=== PATIENT | female | born 1965 | race Caucasian/White ===

== ENCOUNTER 2016-08-19 12:32 | Outpatient (CLI) ==
[2013-01-24 14:52] VITALS: TEMP 98.1
[2016-06-29 13:21] VITALS: BMI 28.2
--- NOTE | 2016-08-19 13:27 | DI ---
EXAM: Two views of the chest. History: Surgical clearance. Comparison: Chest radiograph 01/03/2016 Findings: Upper limits of normal heart size again noted. No focal consolidation. No appreciable pl eural fluid and no pneumothorax. Stable right lung nodule. No acute osseous abnormalities. Impression: No acute cardiopulmonary process. No change compared to the prior study.
== END 2016-08-19 12:33 | disposition home or self-care (01) ==
LOC: RAD 12:32
PROVIDERS: ATTEND Physician Assistant Medical
DX: Z01.818 Encounter for other preprocedural examination (principal)

== ENCOUNTER 2016-08-22 20:15 | Emergency (ER) ==
[2016-08-22 20:20] VITALS: BP 92/64; TEMP 98.5; BMI 27.3
[2016-08-22] MEDS ORDERED: SODIUM CHLORIDE 1,000 ML IV STA (20:25)
[2016-08-22 20:35] LABS: BASOPHILS # (AUTO) 0.1 K/uL (0-0.2); BASOPHILS % (AUTO) 0.5 % (0.0-3.0); EOSINOPHILS # (AUTO) 0.1 K/ul (0.0-0.7); EOSINOPHILS % (AUTO) 0.9 % (0.0-7.0); HEMATOCRIT 41.1 % (37.0-47.0); HEMOGLOBIN 14.4 g/dl (12.0-16.0); IMMATURE GRANULOCYTE % (AUTO) 0.7 % (0.0-5.0); LYMPHOCYTES # (AUTO) 3.6 K/uL (0.60-3.4); LYMPHOCYTES % (AUTO) 33.7 (10.0-50.0); MEAN CORPUSCULAR HEMOGLOBIN 28.2 pg (27.0-31.0); MEAN CORPUSCULAR VOLUME 80.6 fl (81.0-99.0); MONOCYTES # (AUTO) 0.7 K/uL (0.4-2.0); MONOCYTES % (AUTO) 6.7 (0-10); NEUTROPHILS # (AUTO) 6.1 K/ul (2.0-6.9); NEUTROPHILS % (AUTO) 57.5; PLATELET COUNT 159 10^3/uL (140-440); WHITE BLOOD COUNT 10.53 K/ul (4.6-10.2)
[2016-08-22 20:49] LABS: FLU INTERNAL QC INTERNAL QC VALID; RAPID FLU A NEGATIVE (NEGATIVE)
[2016-08-22 20:50] LABS: RAPID FLU B NEGATIVE (NEGATIVE)
[2016-08-22 20:56] LABS: BILIRUBIN,URINE 1+ (NEGATIVE); KETONES,URINE Negative (NEGATIVE); LEUKOCYTE ESTERASE ,URINE Negative (NEGATIVE); NITRITE,URINE Negative (NEGATIVE); PH,URINE 5.5 (5-9); PROTEIN,URINE Trace (NEGATIVE); URINE, BLOOD Negative (NEGATIVE)
[2016-08-22 20:58] LABS: ADD URINE MICROSCOPIC YES
[2016-08-22 20:59] LABS: BACTERIA,URINE 1+ (NOT PRESENT)
[2016-08-22 21:01] LABS: ALBUMIN 3.4 g/dL (3.4-5.0); ALBUMIN/GLOBULIN RATIO 1.03; ANION GAP 12.8; BILIRUBIN,TOTAL 0.53 mg/dL (0.00-1.20); BUN/CREATININE RATIO 10.86; CALCIUM 9.3 mg/dL (8.2-10.2); CREATININE 0.92 mg/dL (0.60-1.30); POTASSIUM 3.8 mmol/L (3.5-5.10); TOTAL PROTEIN 6.7 g/dL (6.4-8.2)
--- NOTE | 2016-08-22 21:30 | CT ---
EXAM: CT abdomen pelvis without contrast HISTORY: Vomiting and fever COMPARISON: CT abdomen pelvis 01/16/2016 and 04/25/2015 TECHNIQUE: Serial axial images of the abdomen pelvis were performed from the lung bases through the inferior pelvis without contrast. These were viewed in multiple planes. FINDINGS: The lung bases are clear. Small pericardial effusion is present. Evaluation is limited due to lack of contrast. The liver is unremarkable. The gallbladder has been removed. The adrenal glands are unremarkable. The kidneys are normal. The spleen is unremarkable . The pancreas demonstrates a 1.2 x 2.0 cm nodule near the tail the pancreas seen on image 51. The stomach is normal. The small bowel in the abdomen pelvis is unremarkable. The colon is unremarkable. There is mild wa ll thickening of the ascending colon and the transverse colon. There is no free air or free fluid. Urinary bladder is distended. Soft tissues in the pelvis are normal. There are metallic clips in t he pelvis. Osseous structures are unremarkable. IMPRESSION: 1. Minimal thickening of the wall of the ascending and transverse colon suggestive of mild colitis. No focal fluid collection is identified. 2. Nodular density in the pancreas not visualized on prior exam. MRI pancreatic protocol is recomm ended to further evaluate. 3. Small pericardial effusion.
[2016-08-22] MEDS ORDERED: PHENERGAN 25 MG/ML VIAL 25 MG in SODIUM CHLORIDE 50 ML IV STA (21:39)
[2016-08-22] MEDS ORDERED: PHENERGAN 25 MG/ML VIAL ONE (21:42)
--- NOTE | 2016-08-22 21:42 | ED.PDOC ---
General ED Provider: Dr. THERESE REYNOLDS-ER Chief Complaint: Diarrhea Stated Complaint: yasmine had vomiting and diarrhea Time Seen by Physician: 20:20 Mode of Arrival: Walk-In Information Source: Patient, Family Exam Limitations: No limitations Primary Care Provider: EZEKIEL MCKEON Nursing and Triage Documentation Reviewed and Agree: Yes GI Complaint Exam - Vomiting/Diarrhea Complaint/Exam Onset/Duration: 24hrs Symptoms Are: Still present Episodes of Vomiting over last 24 Hours: 2 Episodes of Diarrhea Over Last 24 Hours: 2 Initial Severity: Mild Current Severity: Mild Character of Vomiting: Reports: Bilious Character of Diarrhea: Reports: Watery Aggravating: Reports: None Alleviating: Reports: None Associated Signs and Symptoms: Denies: Dizziness, Light-headedness, Melena, Hematemesis, Fever, Abdominal pain, Cramping Recent Positive Test: No Use of Oral Contraceptives: No Use of Depoprovera: No Compliant With Contraceptive Use: No Non-GI Risk Factors: Reports: None Surgical Obstruction Risk Factors: Reports: None Abdominal Findings: Present: None Rectal Exam: Present: Normal Findings Kussmaul Respirations Present: No Differential Diagnoses: Dehydration, Viral Gastroenteritis Review of Systems - Review Of Systems Constitutional: Reports: No symptoms Eyes: Reports: No symptoms Ears, Nose, Mouth, Throat: Reports: No symptoms Respiratory: Reports: No symptoms Cardiac: Reports: No symptoms GI: Reports: Diarrhea, Nausea, Vomiting : Reports: No symptoms Musculoskeletal: Reports: No symptoms Skin: Reports: No symptoms Neurological: Reports: No symptoms Endocrine: Reports: No symptoms Hematologic/Lymphatic: Reports: No symptoms All Other Systems: Reviewed and Negative Past Medical History - Past Medical History Previously Healthy: No Endocrine: Reports: DM 2, Dyslipidemia Cardiovascular: Reports: [place], Hypertension, CHF, A-Fib Respiratory: Reports: COPD, Asthma Hematological: Reports: Unknown Gastrointestinal: Reports: GERD, Diverticulitis, Other Genitourinary: Reports: Kidney stones, Other Neuro/Psych: Reports: Migraine, Seizure, Anxiety, Depression, Bipolar Disorder, Schizophrenia Musculoskeletal: Reports: Arthritis, Back Pain Cancer: Reports: Breast Last Menstrual Period: na Other Pertinent Past Medical History: IBS, PARANOID SCHIZOPHRENIA,ENDOMETRIOSIS - Surgical History General Surgical History: Reports: Cholecystectomy, Tonsillectomy, Orthopedic ( BILATERAL KNEE SURGERY), Other (COLON SURGERY, TUBES IN EARS) - Family History Family History: Reports: Unknown - Social History Smoking Status: Current every day smoker, Heavy tobacco smoker Hx Substance Use: No Alcohol Screening: None Lives: With family - Immunizations Tetanus Shot up to Date: No Physical Exam - Physical Exam Appearance: Well-appearing, No pain distress, Well-nourished Eyes: HANH, EOMI, Conjunctiva clear ENT: Ears normal, Nose normal, Oropharynx normal Neck: Supple Respiratory: Airway patent, Breath sounds clear, Breath sounds equal, Respirations nonlabored Cardiovascular: RRR GI/: Soft, Nontender, No masses, Bowel sounds normal, No Organomegaly Musculoskeletal: Normal strength, ROM intact, No edema, No calf tenderness Skin: Warm, Dry, Normal color Neurological: Sensation intact, Motor intact, Reflexes intact, Cranial nerves intact, Alert, Oriented Psychiatric: Affect appropriate, Mood appropriate Interpretation - Radiology Interpretation Radiology Interpretation By: Radiologist Radiology Results: Positive Exam Interpreted: CT Scan ("pancreatic mass") Re-Evaluation - Re-Evaluation Time of Re-Evaluation: 21:42 Status: Improved Vital Signs Stable: Yes Pain Level: 1 Appearance: NAD Lungs: Clear Skin: Warm and Dry Neuro: Alert and Oriented X3 CV: RRR Critical Care Note - Critical Care Note Total Time (mins): 0 Course - Course Hematology/Chemistry: 08/22/16 20:30 08/22/16 20:30 Orders, Labs, Meds: Lab Review 08/22/16 08/22/16 08/22/16 20:25 20:30 20:50 WBC 10.53 H RBC 5.10 Hgb 14.4 Hct 41.1 MCV 80.6 L MCH 28.2 MCHC 35.0 RDW Coeff of Yanet 12.1 Plt Count 159 Immature Gran % (Auto) 0.7 Neut % (Auto) 57.5 Lymph % (Auto) 33.7 [place] % (Auto) 6.7 Eos % (Auto) 0.9 Baso % (Auto) 0.5 Immature Gran # (Auto) 0.1 Neut # 6.1 Lymph # 3.6 H [place] # 0.7 Eos # 0.1 Baso # 0.1 Sodium 136 Potassium 3.8 Chloride 104 Carbon Dioxide 23 Anion Gap 12.8 BUN 10 Creatinine 0.92 Estimated GFR (MDRD) 64.00 BUN/Creatinine Ratio 10.86 Glucose 259 H Calcium 9.3 Total Bilirubin 0.53 AST 8 L ALT 9 L Alkaline Phosphatase 142 H Total Protein 6.7 Albumin 3.4 Globulin 3.3 Albumin/Globulin Ratio 1.03 Amylase 18 L Lipase 11 Urine Color Yellow Urine Clarity Clear Urine pH 5.5 Ur Specific [place] >=1.030 Urine Protein Trace Urine Glucose (UA) 2+ Urine Ketones Negative Urine Blood Negative Urine Nitrite Negative Urine Bilirubin 1+ Urine Urobilinogen 0.2 Ur Leukocyte Esterase Negative Urine Microscopic RBC 0-2 Urine Microscopic WBC 2-5 Ur Squamous Epith Cells 10-20 Urine Bacteria 1+ Influenza A (Rapid) Negative Influenza B (Rapid) Negative Orders Category Date Time Status IV [ED IV/MEDIPORT/POWERPORT] .ONCE EMERGENCY 08/22/16 20:25 Active AMYLASE Stat LAB 08/22/16 20:30 Completed CBC W/ AUTO DIFF Stat LAB 08/22/16 20:30 Completed COMPREHENSIVE METABOLIC PANEL Stat LAB 08/22/16 20:30 Completed LIPASE Stat LAB 08/22/16 20:30 Completed MOLECULAR GROUP A STREP Stat LAB 08/22/16 20:25 Results RAPID FLU A/B Stat LAB 08/22/16 20:25 Completed STREP SCREEN Stat LAB 08/22/16 20:25 Results URINALYSIS C & S IF INDICATED Stat LAB 08/22/16 20:50 Completed URINE CULTURE Stat LAB 08/22/16 20:59 Received 0.9 % Sodium Chloride [Saline Flush] MEDS 08/22/16 20:25 Ordered 1 syr IVF PRN PRN Promethazine HCl [Phenergan 25 mg/ml Vial] 25 mg MEDS 08/22/16 21:39 Active 0.9 % Sodium Chloride [Sodium Chloride] 50 ml IV ONCE Sodium Chloride 0.9% [Sodium Chloride] 1,000 ml MEDS 08/22/16 20:[address] ABDOMEN/PELVIS WO CONTRAST Stat RADS 08/22/16 20:51 Completed Medications Generic Name Dose Route Start Last Admin Trade Name Freq PRN Reason Stop Dose Admin Promethazine HCl 25 mg/ Sodium 51 mls @ 75 mls/hr 08/22/16 21:39 Chloride IV 08/22/16 22:19 ONCE STA Sodium Chloride 1 syr 08/22/16 20:25 08/22/16 20:51 Saline Flush IVF 1 syr PRN PRN Administration To flush IV Discontinued Medications Generic Name Dose Route Start Last Admin Trade Name Freq PRN Reason Stop Dose Admin Sodium Chloride 1,000 mls @ 1,000 mls/hr 08/22/16 20:25 08/22/16 20:51 Sodium Chloride IV 08/22/16 21:24 1,000 mls/hr BOLUS STA Administration Vital Signs: Temp Pulse Resp BP Pulse Ox 08/22/16 20:16 98.5 F 111 H 20 92/64 94 L Departure - Departure Time of Disposition: 21:42 Disposition: HOME SELF-CARE Discharge Problem: Enteritis, Pancreatic mass UTI (urinary tract infection) Qualifiers: Urinary tract infection type: site unspecified Hematuria presence: without hematuria Qualifier Code: (N39.0) Urinary tract infection, site not specified Instructions: Urinary Tract Infection in Women (ED) Condition: Fair Pt referred to PMD for follow-up: Yes Additional Instructions: minocin 50mg bid x 7days--phenergan 25mg q 4hrs prn #4--y0ou must f/u with your pcp this week about the pancreatic mass--you will need an mri Allergies/Adverse Reactions: Allergies carbamazepine [From Tegretol] Adverse Reaction (Verified 06/29/16 13:21) chlorpromazine HCl [From Thorazine] Adverse Reaction (Verified 06/29/16 13:21) cyclobenzaprine [From Flexeril] Adverse Reaction (Verified 06/29/16 13:21) dexamethasone [From Decadron] Adverse Reaction (Verified 06/29/16 13:21) dexamethasone sod phosphate [From Decadron] Adverse Reaction (Verified 06/29/16 13:21) dextromethorphan HBr [From Vicks Nature Fusion Cough] Adverse Reaction ( Verified 06/29/16 13:21) hydroxyzine HCl [From Vistaril] Adverse Reaction (Verified 06/29/16 13:21) hydroxyzine pamoate [From Vistaril] Adverse Reaction (Verified 06/29/16 13:21) insulin detemir [From Levemir] Adverse Reaction (Verified 06/29/16 13:21) insulin glargine,hum.rec.anlog [From Lantus] Adverse Reaction (Verified 13:21) Iodinated Contrast Media - Oral and Adverse Reaction (Verified 06/29/16 13:21) lorazepam [From Ativan] Adverse Reaction (Verified 06/29/16 13:21) meperidine [From Demerol] Adverse Reaction (Verified 06/29/16 13:21) metformin Adverse Reaction (Verified 06/29/16 13:21) methylprednisolone [From Medrol] Adverse Reaction (Verified 06/29/16 13:21) nitrofurantoin [From Macrobid] Adverse Reaction (Verified 06/29/16 13:21) nitrofurantoin macrocrystal [From Macrobid] Adverse Reaction (Verified 06/29/16 13:21) ondansetron [From Zofran (as hydrochloride)] Adverse Reaction (Verified 13:21) ondansetron HCl [From Zofran] Adverse Reaction (Verified 06/29/16 13:21) Penicillins Adverse Reaction (Verified 06/29/16 13:21) phenytoin sodium [From Dilantin] Adverse Reaction (Verified 06/29/16 13:21) phenytoin sodium extended [From Dilantin] Adverse Reaction (Verified 06/29/16 13 :21) prednisone Adverse Reaction (Verified 06/29/16 13:21) Sulfa (Sulfonamide Antibiotics) Adverse Reaction (Verified 06/29/16 13:21) tramadol HCl [From Ultram] Adverse Reaction (Verified 06/29/16 13:21) trimethoprim [From Bactrim] Adverse Reaction (Verified 06/29/16 13:21) paper tape Adverse Reaction (Uncoded 04/19/16 18:55) Home Medications: Ambulatory Orders Tiotropium [place] [Spiriva] 1 cap IH DAILY 01/24/13 Topiramate [Topamax] 50 mg PO BID 01/24/13 Valsartan [Diovan] 160 mg PO DAILY 01/24/13 Aspirin [Aspirin EC] 81 mg PO DAILY 11/03/13 Pantoprazole Sodium [Protonix] 40 mg PO BID 06/10/14 Insulin Lispro [Humalog] 22 unit SUBCUT BEDTIME 07/22/14 Lovastatin [Mevacor] 40 mg PO BEDTIME 05/16/15 Albuterol Sulfate 0.083% Neb [Albuterol 0.083% Neb] 1 vial INH BID 12/14/15 Furosemide [Lasix Tab] 80 mg PO MOWEFR 01/03/16 Multivitamin [One Daily Multivitamin] 1 each PO DAILY 01/03/16 Trazodone HCl 100 mg PO BEDTIME #30 02/05/16 Fluticasone Propionate [Flonase] 1 spray NS BID 04/15/16 Hydrocodone/Acetaminophen [[place] 7.5-325 Tablet] 1 each PO Q6HR PRN #7 tablet Hydroxyzine HCl 25 mg PO TID #90 07/22/16 Quetiapine Fumarate [Seroquel] 300 mg PO BEDTIME #30 07/22/16 Insulin Lispro [Humalog] 15 unit SUBCUT DAILY 08/22/16 Quetiapine Fumarate [Seroquel] 100 mg PO BEDTIME 08/22/16 Disposition Discussed With: Patient, Family
== END 2016-08-22 22:53 | disposition home or self-care (01) ==
LOC: ED 20:15
DX: K52.9 Noninfective gastroenteritis and colitis, unspecified (principal); N39.0 Urinary tract infection, site not specified; R19.09 Other intra-abdominal and pelvic swelling, mass and lump; I25.2 Old myocardial infarction; Z79.899 Other long term (current) drug therapy; F17.210 Nicotine dependence, cigarettes, uncomplicated
CPT/HCPCS: 36415; 80053; 81001; 82150; 83690; 85025; 87086; 87651; 87804; 87880; 96361; 96365; 99283

== ENCOUNTER 2016-08-30 14:54 | Emergency (ER) ==
[2016-08-30 15:00] VITALS: BP 110/69; TEMP 97.3; BMI 27.6
[2016-08-30 15:39] LABS: BASOPHILS # (AUTO) 0.1 K/uL (0-0.2); BASOPHILS % (AUTO) 0.7 % (0.0-3.0); EOSINOPHILS # (AUTO) 0.1 K/ul (0.0-0.7); EOSINOPHILS % (AUTO) 0.7 % (0.0-7.0); HEMATOCRIT 41.4 % (37.0-47.0); HEMOGLOBIN 14.8 g/dl (12.0-16.0); IMMATURE GRANULOCYTE % (AUTO) 1.4 % (0.0-5.0); LYMPHOCYTES # (AUTO) 3.2 K/uL (0.60-3.4); MEAN CORPUSCULAR HEMOGLOBIN 28.7 pg (27.0-31.0); MEAN CORPUSCULAR HGB CONC 35.7 (31.8-35.4); MEAN CORPUSCULAR VOLUME 80.4 fl (81.0-99.0); MONOCYTES # (AUTO) 0.6 K/uL (0.4-2.0); MONOCYTES % (AUTO) 7.2 (0-10); NEUTROPHILS # (AUTO) 4.8 K/ul (2.0-6.9); PLATELET COUNT 191 10^3/uL (140-440); RED BLOOD COUNT 5.15 10^6/ul (4.20-5.40); WHITE BLOOD COUNT 8.88 K/ul (4.6-10.2)
[2016-08-30 15:53] LABS: FLU INTERNAL QC INTERNAL QC VALID; RAPID FLU A NEGATIVE (NEGATIVE); RAPID FLU B NEGATIVE (NEGATIVE)
[2016-08-30 16:04] LABS: ALBUMIN 3.5 g/dL (3.4-5.0); ALBUMIN/GLOBULIN RATIO 0.97; BILIRUBIN,TOTAL 0.37 mg/dL (0.00-1.20); BUN/CREATININE RATIO 12.26; CALCIUM 9.6 mg/dL (8.2-10.2); CREATININE 1.06 mg/dL (0.60-1.30); TOTAL PROTEIN 7.1 g/dL (6.4-8.2)
--- NOTE | 2016-08-30 16:28 | CT ---
EXAM: CT abdomen and pelvis without contrast HISTORY: Abdominal pain TECHNIQUE: Multi-slice transaxial helical with coronal and sagittal reformed images COMPARISON: CT abdomen/pelvis from 08/22/2016 FINDINGS: A moderate pericardial effusion has increased with a maximal diameter of 1.5 cm adjacent t o the free wall of the ventricle. The heart size is normal. A trace left pleural effusion persists . No right pleural fluid is appreciated. Minimal dependent atelectasis is noted. The hepatic attenuation is normal relative to the spleen. The gallbladder is absent without biliary dilatation. The pancreas and adrenal glands are normal. The spleen has normal size and attenuatio n. There is a nonobstructing calculus at the interpolar region of the right kidney measuring 1.7 mm. An additional calculus is 2.2 mm. The kidneys are otherwise grossly normal within the confines of a no ncontrast examination. The ureters have normal caliber. The nonopacified bladder is normal. The u terus is absent and there are no adnexal masses. Diverticula arise from the large bowel. There is diffuse submucosal fat deposition in the large bow el suggesting chronic inflammation. The appendix is not visualized. There are no secondary signs a ppendicitis. A small bowel maintain normal caliber. The aorta is minimally atherosclerotic with no rmal caliber. No suspicious lymphadenopathy or fluid collections are evident. The bones are free of suspicious osteolytic or osteoblastic lesions. IMPRESSION: 1. Nonobstructive intestinal gas pattern. Suggestion of previous appendectomy. 2. Nonobstructing right nephrolithiasis. 3. Moderate pericardial effusion, increased in volume. 4. Trace left pleural effusion. 5. ASCVD. 6. Suggestion of chronic inflammation of the large bowel with submucosal fat deposition
--- NOTE | 2016-08-30 16:32 | ED.PDOC ---
General ED Provider: Dr. SAMIA SILVA Chief Complaint: Respiratory Complaint Stated Complaint: cough, flu like symptoms Time Seen by Physician: 15:00 Mode of Arrival: Walk-In Information Source: Patient Exam Limitations: No limitations Primary Care Provider: EZEKIEL MCKEON Nursing and Triage Documentation Reviewed and Agree: Yes Respiratory Complaint Exam - Respiratory Complaint/Exam Symptoms Are: Still present Timing: Intermittent Initial Severity: Moderate Current Severity: Mild Location: Throat, Chest Character: Reports: Non-productive cough Aggravating: Reports: None Alleviating: Reports: Spontaneous resolution Associated Signs and Symptoms: Reports: Nasal congestion Related History: Reports: Similar episode History of Healthcare-Acquired Pneumonia: No Review of Systems - Review Of Systems Constitutional: Reports: Malaise Eyes: Reports: No symptoms Ears, Nose, Mouth, Throat: Reports: No symptoms Respiratory: Reports: Cough Cardiac: Reports: No symptoms GI: Reports: No symptoms : Reports: No symptoms Musculoskeletal: Reports: No symptoms Skin: Reports: No symptoms Neurological: Reports: No symptoms Endocrine: Reports: No symptoms Hematologic/Lymphatic: Reports: No symptoms All Other Systems: Reviewed and Negative Past Medical History - Past Medical History Previously Healthy: No Endocrine: Reports: DM 2, Dyslipidemia Cardiovascular: Reports: [place], Hypertension, CHF, A-Fib Respiratory: Reports: COPD, Asthma Hematological: Reports: Unknown Gastrointestinal: Reports: GERD, Diverticulitis, Other Genitourinary: Reports: Kidney stones, Other Neuro/Psych: Reports: Migraine, Seizure, Anxiety, Depression, Bipolar Disorder, Schizophrenia Musculoskeletal: Reports: Arthritis, Back Pain Cancer: Reports: Breast Last Menstrual Period: n/a Other Pertinent Past Medical History: IBS, PARANOID SCHIZOPHRENIA,ENDOMETRIOSIS - Surgical History General Surgical History: Reports: Cholecystectomy, Tonsillectomy, Orthopedic ( BILATERAL KNEE SURGERY), Other (COLON SURGERY, TUBES IN EARS) - Family History Family History: Reports: Unknown - Social History Smoking Status: Current every day smoker, Heavy tobacco smoker Hx Substance Use: No Alcohol Screening: None Physical Exam - Physical Exam Appearance: Well-appearing, No pain distress, Well-nourished Eyes: HANH, EOMI, Conjunctiva clear ENT: Ears normal, Nose normal, Oropharynx normal Respiratory: Airway patent, Breath sounds clear, Breath sounds equal, Respirations nonlabored Cardiovascular: RRR, Pulses normal, No rub, No murmur GI/: Soft, Nontender, No masses, Bowel sounds normal, No Organomegaly Musculoskeletal: Normal strength, ROM intact, No edema, No calf tenderness Skin: Warm, Dry, Normal color Neurological: Sensation intact, Motor intact, Reflexes intact, Cranial nerves intact, Alert, Oriented Psychiatric: Affect appropriate, Mood appropriate Interpretation - Radiology Interpretation Radiology Interpretation By: Radiologist Radiology Results: No acute changes Critical Care Note - Critical Care Note Total Time (mins): 0 Course - Course Hematology/Chemistry: 08/30/16 15:30 08/30/16 15:30 Orders, Labs, Meds: Lab Review 08/30/16 15:30 WBC 8.88 RBC 5.15 Hgb 14.8 Hct 41.4 MCV 80.4 L MCH 28.7 MCHC 35.7 H RDW Coeff of [place] 12.1 Plt Count 191 Immature Gran % (Auto) 1.4 Neut % (Auto) 54.0 Lymph % (Auto) 36.0 [place] % (Auto) 7.2 Eos % (Auto) 0.7 Baso % (Auto) 0.7 Immature Gran # (Auto) 0.1 Neut # 4.8 Lymph # 3.2 [place] # 0.6 Eos # 0.1 Baso # 0.1 Sodium 134 L Potassium 4.0 Chloride 98 Carbon Dioxide 24 Anion Gap 16.0 BUN 13 Creatinine 1.06 Estimated GFR (MDRD) 55.00 BUN/Creatinine Ratio 12.26 Glucose 435 H Calcium 9.6 Total Bilirubin 0.37 AST 8 L ALT 9 L Alkaline Phosphatase 149 H Total Protein 7.1 Albumin 3.5 Globulin 3.6 Albumin/Globulin Ratio 0.97 Influenza A (Rapid) Negative Influenza B (Rapid) Negative Orders Category Date Time Status CBC W/ AUTO DIFF Stat LAB 08/30/16 15:30 Completed COMPREHENSIVE METABOLIC PANEL Stat LAB 08/30/16 15:30 Completed MOLECULAR GROUP A STREP Stat LAB 08/30/16 15:30 Results RAPID FLU A/B Stat LAB 08/30/16 15:30 Completed STREP SCREEN Stat LAB 08/30/16 15:[address] ABDOMEN/PELVIS WO CONTRAST Stat RADS 08/30/16 15:28 Completed Vital Signs: Temp Pulse Resp BP Pulse Ox 08/30/16 14:55 97.3 F L 118 H 16 110/69 97 Departure - Departure Time of Disposition: 16:30 Disposition: HOME SELF-CARE Discharge Problem: Bronchitis Instructions: Acute Bronchitis (ED) Condition: Good Pt referred to PMD for follow-up: No Allergies/Adverse Reactions: Allergies carbamazepine [From Tegretol] Adverse Reaction (Verified 08/30/16 15:00) chlorpromazine HCl [From Thorazine] Adverse Reaction (Verified 08/30/16 15:00) cyclobenzaprine [From Flexeril] Adverse Reaction (Verified 08/30/16 15:00) dexamethasone [From Decadron] Adverse Reaction (Verified 08/30/16 15:00) dexamethasone sod phosphate [From Decadron] Adverse Reaction (Verified 08/30/16 15:00) dextromethorphan HBr [From Vicks Nature Fusion Cough] Adverse Reaction ( Verified 08/30/16 15:00) hydroxyzine HCl [From Vistaril] Adverse Reaction (Verified 08/30/16 15:00) hydroxyzine pamoate [From Vistaril] Adverse Reaction (Verified 08/30/16 15:00) insulin detemir [From Levemir] Adverse Reaction (Verified 08/30/16 15:00) insulin glargine,hum.rec.anlog [From Lantus] Adverse Reaction (Verified 15:00) Iodinated Contrast Media - Oral and Adverse Reaction (Verified 08/30/16 15:00) lorazepam [From Ativan] Adverse Reaction (Verified 08/30/16 15:00) meperidine [From Demerol] Adverse Reaction (Verified 08/30/16 15:00) metformin Adverse Reaction (Verified 08/30/16 15:00) methylprednisolone [From Medrol] Adverse Reaction (Verified 08/30/16 15:00) nitrofurantoin [From Macrobid] Adverse Reaction (Verified 08/30/16 15:00) nitrofurantoin macrocrystal [From Macrobid] Adverse Reaction (Verified 08/30/16 15:00) ondansetron [From Zofran (as hydrochloride)] Adverse Reaction (Verified 15:00) ondansetron HCl [From Zofran] Adverse Reaction (Verified 08/30/16 15:00) Penicillins Adverse Reaction (Verified 08/30/16 15:00) phenytoin sodium [From Dilantin] Adverse Reaction (Verified 08/30/16 15:00) phenytoin sodium extended [From Dilantin] Adverse Reaction (Verified 08/30/16 15 :00) prednisone Adverse Reaction (Verified 08/30/16 15:00) Sulfa (Sulfonamide Antibiotics) Adverse Reaction (Verified 08/30/16 15:00) tramadol HCl [From Ultram] Adverse Reaction (Verified 08/30/16 15:00) trimethoprim [From Bactrim] Adverse Reaction (Verified 08/30/16 15:00) paper tape Adverse Reaction (Uncoded 08/30/16 15:00) Home Medications: Ambulatory Orders Tiotropium [place] [Spiriva] 1 cap IH DAILY 01/24/13 Topiramate [Topamax] 50 mg PO BID 01/24/13 Valsartan [Diovan] 160 mg PO DAILY 01/24/13 Aspirin [Aspirin EC] 81 mg PO DAILY 11/03/13 Pantoprazole Sodium [Protonix] 40 mg PO BID 06/10/14 Insulin Lispro [Humalog] 22 unit SUBCUT BEDTIME 07/22/14 Lovastatin [Mevacor] 40 mg PO BEDTIME 05/16/15 Albuterol Sulfate 0.083% Neb [Albuterol 0.083% Neb] 1 vial INH BID 12/14/15 Furosemide [Lasix Tab] 80 mg PO MOWEFR 01/03/16 Multivitamin [One Daily Multivitamin] 1 each PO DAILY 01/03/16 Trazodone HCl 100 mg PO BEDTIME #30 02/05/16 Fluticasone Propionate [Flonase] 1 spray NS BID 04/15/16 Hydrocodone/Acetaminophen [[place] 7.5-325 Tablet] 1 each PO Q6HR PRN #7 tablet Hydroxyzine HCl 25 mg PO TID #90 07/22/16 Quetiapine Fumarate [Seroquel] 300 mg PO BEDTIME #30 07/22/16 Insulin Lispro [Humalog] 15 unit SUBCUT DAILY 08/22/16 Quetiapine Fumarate [Seroquel] 100 mg PO BEDTIME 08/22/16
[2016-08-30] MEDS ORDERED: HUMULIN R SUBCUT STA (16:37)
== END 2016-08-30 17:03 | disposition home or self-care (01) ==
LOC: ED 14:54
DX: J20.9 Acute bronchitis, unspecified (principal); F17.210 Nicotine dependence, cigarettes, uncomplicated; Z79.899 Other long term (current) drug therapy
CPT/HCPCS: 36415; 80053; 85025; 87651; 87804; 87880; 96372; 99283

== ENCOUNTER 2016-09-05 12:37 | Outpatient (CLI) ==
[2013-01-24 14:52] VITALS: TEMP 98.1
== END 2016-09-05 12:38 | disposition home or self-care (01) ==
LOC: AMBL 12:37
PROVIDERS: ATTEND Family Medicine
DX: R19.7 Diarrhea, unspecified (principal); R11.2 Nausea with vomiting, unspecified; K86.89 Other specified diseases of pancreas

== ENCOUNTER 2016-09-24 12:56 | Outpatient (CLI) ==
[2013-01-24 14:52] VITALS: TEMP 98.1
[2016-09-24 13:33] LABS: BASOPHILS # (AUTO) 0.1 K/uL (0-0.2); BASOPHILS % (AUTO) 0.6 % (0.0-3.0); EOSINOPHILS # (AUTO) 0.1 K/ul (0.0-0.7); EOSINOPHILS % (AUTO) 0.8 % (0.0-7.0); HEMATOCRIT 40.4 % (37.0-47.0); HEMOGLOBIN 14.4 g/dl (12.0-16.0); IMMATURE GRANULOCYTE % (AUTO) 0.9 % (0.0-5.0); LYMPHOCYTES # (AUTO) 3.6 K/uL (0.60-3.4); LYMPHOCYTES % (AUTO) 45.2 (10.0-50.0); MEAN CORPUSCULAR HEMOGLOBIN 28.9 pg (27.0-31.0); MEAN CORPUSCULAR HGB CONC 35.6 (31.8-35.4); MONOCYTES # (AUTO) 0.5 K/uL (0.4-2.0); MONOCYTES % (AUTO) 6.4 (0-10); NEUTROPHILS # (AUTO) 3.7 K/ul (2.0-6.9); NEUTROPHILS % (AUTO) 46.1; PLATELET COUNT 185 10^3/uL (140-440); RED BLOOD COUNT 4.99 10^6/ul (4.20-5.40); WHITE BLOOD COUNT 7.95 K/ul (4.6-10.2)
[2016-09-24 14:05] LABS: ALBUMIN 3.8 g/dL (3.4-5.0); ANION GAP 16.3; BILIRUBIN,TOTAL 0.33 mg/dL (0.00-1.20); BUN/CREATININE RATIO 11.22; CALCIUM 9.6 mg/dL (8.2-10.2); CREATININE 0.98 mg/dL (0.60-1.30); POTASSIUM 4.3 mmol/L (3.5-5.10); TOTAL PROTEIN 7.6 g/dL (6.4-8.2)
== END 2016-09-24 12:57 | disposition home or self-care (01) ==
LOC: LAB 12:56
PROVIDERS: ATTEND Internal Medicine Gastroenterology
DX: K86.9 Disease of pancreas, unspecified (principal)
CPT/HCPCS: 36415; 80053; 85025; 86301

== ENCOUNTER 2016-09-26 11:56 | Outpatient (CLI) ==
[2013-01-24 14:52] VITALS: TEMP 98.1
== END 2016-09-26 11:57 ==
LOC: AMBL 11:56
PROVIDERS: ATTEND Internal Medicine
DX: R10.9 Unspecified abdominal pain (principal); K59.00 Constipation, unspecified

== ENCOUNTER 2016-11-19 18:52 | Emergency (ER) ==
[2016-11-19 18:58] VITALS: TEMP 99.1; BMI 27.1
[2016-11-19] MEDS ORDERED: DILAUDID 2 MG/ML SYRINGE IM STA (19:15)
[2016-11-19] MEDS ORDERED: ZOFRAN 4 MG/2 ML IM STA (19:15)
[2016-11-19] MEDS ORDERED: PHENERGAN 25 MG/ML VIAL IM STA (19:16)
[2016-11-19 19:29] VITALS: BP 131/84
--- NOTE | 2016-11-19 19:47 | ED.PDOC ---
General ED Provider: Dr. THERESE REYNOLDS-ER Chief Complaint: Shoulder Pain/Injury Stated Complaint: i have a rotator cuff tear--im supposed to have surgery--it hurts to move the arm at the shoulder Time Seen by Physician: 18:55 Mode of Arrival: Walk-In Information Source: Patient Exam Limitations: No limitations Primary Care Provider: FLAKITA MCALLISTER Nursing and Triage Documentation Reviewed and Agree: Yes Musculoskeletal Complaint Exam - Shoulder Pain Complaint/Exam Mechanism of Injury: Reports: No known trauma Onset/Duration: several mos Symptoms Are: Still present Timing: Intermittent Initial Severity: Moderate Current Severity: Moderate Location: Reports: Discrete Character: Reports: Spasmodic Alleviating: Reports: None Aggravating: Reports: Movement, Lifting, Flexion, Extension, Internal rotation Associated Signs and Symptoms: Denies: Swelling, Redness, Bruising, Fever, Weakness, Numbness, Tingling Non-Orthopedic Risk Factors: Reports: None Septic Arthritis Risk Factors: Reports: None Tenderness: Present: Rotator cuff muscles Limited Range of Motion: Present: Abduction, Adduction, Flexion, Extension Differential Diagnoses: Rotator Cuff Injury Quality Indicator For Non-Traumatic Chest Pain/Syncope: EKG Performed Review of Systems - Review Of Systems Constitutional: Reports: No symptoms Eyes: Reports: No symptoms Ears, Nose, Mouth, Throat: Reports: No symptoms Respiratory: Reports: No symptoms Cardiac: Reports: No symptoms GI: Reports: No symptoms : Reports: No symptoms Musculoskeletal: Reports: Muscle pain Skin: Reports: No symptoms Neurological: Reports: No symptoms Endocrine: Reports: No symptoms Hematologic/Lymphatic: Reports: No symptoms All Other Systems: Reviewed and Negative Past Medical History - Past Medical History Previously Healthy: No Endocrine: Reports: DM 2, Dyslipidemia Cardiovascular: Reports: OR, Hypertension, CHF, A-Fib Respiratory: Reports: COPD, Asthma Hematological: Reports: Unknown Gastrointestinal: Reports: GERD, Diverticulitis, Other Genitourinary: Reports: Kidney stones, Other Neuro/Psych: Reports: Migraine, Seizure, Anxiety, Depression, Bipolar Disorder, Schizophrenia Musculoskeletal: Reports: Arthritis, Back Pain Cancer: Reports: Breast Last Menstrual Period: N/A Other Pertinent Past Medical History: IBS, PARANOID SCHIZOPHRENIA,ENDOMETRIOSIS - Surgical History General Surgical History: Reports: Cholecystectomy, Tonsillectomy, Orthopedic ( BILATERAL KNEE SURGERY), Other (COLON SURGERY, TUBES IN EARS) - Family History Family History: Reports: Unknown - Social History Smoking Status: Current every day smoker, Heavy tobacco smoker Hx Substance Use: No Alcohol Screening: None Lives: With family - Immunizations Tetanus Shot up to Date: Yes Physical Exam - Physical Exam Appearance: Well-appearing, No pain distress, Well-nourished Pain Distress: Moderate Eyes: HANH ENT: Ears normal, Nose normal, Oropharynx normal Neck: Supple Respiratory: Airway patent Cardiovascular: RRR, Pulses normal, No rub, No murmur GI/: Soft, Nontender, No masses, Bowel sounds normal, No Organomegaly Musculoskeletal: Limited ROM Skin: Warm Neurological: Sensation intact, Motor intact, Reflexes intact, Cranial nerves intact, Alert, Oriented Psychiatric: Affect appropriate, Mood appropriate Re-Evaluation - Re-Evaluation Time of Re-Evaluation: 20:01 Status: Improved Vital Signs Stable: Yes Pain Level: o Appearance: NAD Lungs: Clear Skin: Warm and Dry Neuro: Alert and Oriented X3 CV: RRR Critical Care Note - Critical Care Note Total Time (mins): 0 Course - Course Orders, Labs, Meds: Lab Review 11/19/16 19:20 Total Creatine Kinase 22 Troponin I < 0.0100 Orders Category Date Time Status EKG-(ED ONLY) Stat CARDIO 11/19/16 19:13 Ordered Inverform Machine Operator [ED FRAME TRIMMER APPLIED] .ONCE EMERGENCY 11/19/16 19:14 Active CREATINE KINASE Stat LAB 11/19/16 19:20 Completed TROPONIN I Stat LAB 11/19/16 19:20 Completed Hydromorphone HCl/Pf [Dilaudid 2 mg/ml Syringe] MEDS 11/19/16 19:15 Discontinued 2 mg IM ONCE STA Promethazine HCl [Phenergan 25 mg/ml Vial] MEDS 11/19/16 19:16 Discontinued 25 mg IM ONCE STA Medications Discontinued Medications Generic Name Dose Route Start Last Admin Trade Name Freq PRN Reason Stop Dose Admin Hydromorphone HCl 2 mg 11/19/16 19:15 11/19/16 19:30 Dilaudid 2 Mg/Ml Syringe IM 11/19/16 19:16 2 mg ONCE STA Administration Promethazine HCl 25 mg 11/19/16 19:16 11/19/16 19:32 Phenergan 25 Mg/Ml Vial IM 11/19/16 19:17 25 mg ONCE STA Administration Vital Signs: Temp Pulse Resp BP Pulse Ox 11/19/16 19:16 103 H 16 131/84 95 04/14/17 18:52 99.1 F 113 H 18 96/58 L 96 Departure - Departure Time of Disposition: 20:01 Disposition: HOME SELF-CARE Discharge Problem: Rotator cuff dysfunction Qualifiers: Laterality: left Qualifier Code: (M67.912) Unspecified disorder of synovium and tendon, left shoulder Instructions: Rotator Cuff Injury (ED) Condition: Good Pt referred to PMD for follow-up: Yes Additional Instructions: f/u with ortho Allergies/Adverse Reactions: Allergies carbamazepine [From Tegretol] Adverse Reaction (Verified 11/19/16 19:15) chlorpromazine HCl [From Thorazine] Adverse Reaction (Verified 11/19/16 19:15) cyclobenzaprine [From Flexeril] Adverse Reaction (Verified 11/19/16 19:15) dexamethasone [From Decadron] Adverse Reaction (Verified 11/19/16 19:15) dexamethasone sod phosphate [From Decadron] Adverse Reaction (Verified 11/19/16 19:15) dextromethorphan HBr [From Vicks Nature Fusion Cough] Adverse Reaction ( Verified 11/19/16 19:15) hydroxyzine HCl [From Vistaril] Adverse Reaction (Verified 11/19/16 19:15) hydroxyzine pamoate [From Vistaril] Adverse Reaction (Verified 11/19/16 19:15) insulin detemir [From Levemir] Adverse Reaction (Verified 11/19/16 19:15) insulin glargine,hum.rec.anlog [From Lantus] Adverse Reaction (Verified 19:15) Iodinated Contrast Media - Oral and Adverse Reaction (Verified 11/19/16 19:00) lorazepam [From Ativan] Adverse Reaction (Verified 11/19/16 19:00) meperidine [From Demerol] Adverse Reaction (Verified 11/19/16 19:00) metformin Adverse Reaction (Verified 11/19/16 19:00) methylprednisolone [From Medrol] Adverse Reaction (Verified 11/19/16 19:00) nitrofurantoin [From Macrobid] Adverse Reaction (Verified 11/19/16 19:00) nitrofurantoin macrocrystal [From Macrobid] Adverse Reaction (Verified 11/19/16 19:00) ondansetron [From Zofran (as hydrochloride)] Adverse Reaction (Verified 19:00) ondansetron HCl [From Zofran] Adverse Reaction (Verified 11/19/16 19:00) Penicillins Adverse Reaction (Verified 11/19/16 19:00) phenytoin sodium [From Dilantin] Adverse Reaction (Verified 11/19/16 19:00) phenytoin sodium extended [From Dilantin] Adverse Reaction (Verified 11/19/16 19 :00) prednisone Adverse Reaction (Verified 11/19/16 19:00) Sulfa (Sulfonamide Antibiotics) Adverse Reaction (Verified 11/19/16 19:00) tramadol HCl [From Ultram] Adverse Reaction (Verified 11/19/16 19:00) trimethoprim [From Bactrim] Adverse Reaction (Verified 11/19/16 19:00) paper tape Adverse Reaction (Uncoded 11/19/16 19:00) Home Medications: Ambulatory Orders Tiotropium [place] [Spiriva] 1 cap IH DAILY 01/24/13 Topiramate [Topamax] 50 mg PO TID 01/24/13 Valsartan [Diovan] 160 mg PO DAILY 01/24/13 Aspirin [Aspirin EC] 81 mg PO DAILY 11/03/13 Pantoprazole Sodium [Protonix] 40 mg PO BID 06/10/14 Insulin Lispro [Humalog] 22 unit SUBCUT BEDTIME 07/22/14 Lovastatin [Mevacor] 40 mg PO BEDTIME 05/16/15 Furosemide [Lasix Tab] 80 mg PO MOWEFR 01/03/16 Multivitamin [One Daily Multivitamin] 1 each PO DAILY 01/03/16 Fluticasone Propionate [Flonase] 1 spray NS BID 04/15/16 Hydrocodone/Acetaminophen [[place] 7.5-325 Tablet] 1 each PO Q6HR PRN #7 tablet Hydroxyzine HCl 25 mg PO TID #90 07/22/16 Quetiapine Fumarate [Seroquel] 300 mg PO BEDTIME #30 07/22/16 Insulin Lispro [Humalog] 15 unit SUBCUT DAILY 08/22/16 Trazodone HCl 200 mg PO BEDTIME #30 10/21/16 Albuterol Sulfate [Proair Hfa] 1 puff IH BID 11/19/16 Disposition Discussed With: Patient, Family
[2016-11-19 19:56] LABS: CREATINE KINASE 22 U/L
== END 2016-11-19 20:17 | disposition home or self-care (01) ==
LOC: ED 18:52
DX: M67.912 Unspecified disorder of synovium and tendon, left shoulder (principal); F17.210 Nicotine dependence, cigarettes, uncomplicated
CPT/HCPCS: 36415; 82550; 84484; 93005; 93010; 96372; 99283

== ENCOUNTER 2016-11-23 13:55 | Emergency (ER) ==
[2016-11-23 14:10] VITALS: BP 138/100; TEMP 97.4; BMI 26.3
--- NOTE | 2016-11-23 14:21 | ED.PDOC ---
General ED Provider: Dr. PAULA OTTO JR Chief Complaint: Abdominal Pain Stated Complaint: pt complains of right upper quadrant pain. 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 called them today and was told to go to er. also complains of fever and diarrhea dark diarrhea for three days. [ End ]97.4 115 20 95% 138/100 710 Time Seen by Physician: 14:19 Mode of Arrival: Walk-In Information Source: Patient Exam Limitations: No limitations Primary Care Provider: FLAKITA MCALLISTER Nursing and Triage Documentation Reviewed and Agree: No Review of Systems - Review Of Systems Constitutional: Reports: Fever Eyes: Reports: No symptoms Ears, Nose, Mouth, Throat: Reports: No symptoms Respiratory: Reports: No symptoms Cardiac: Reports: No symptoms GI: Reports: Abdominal pain (RUQ), Diarrhea (3days) : Reports: No symptoms Musculoskeletal: Reports: No symptoms Skin: Reports: No symptoms Neurological: Reports: No symptoms Endocrine: Reports: No symptoms Hematologic/Lymphatic: Reports: No symptoms All Other Systems: Other Past Medical History - Past Medical History Previously Healthy: No Endocrine: Reports: DM 2, Dyslipidemia Cardiovascular: Reports: CAD, HI, Hypertension, CHF, A-Fib Respiratory: Reports: COPD, Asthma Hematological: Reports: Unknown Gastrointestinal: Reports: GERD, Diverticulitis, Other Genitourinary: Reports: Kidney stones, Other Neuro/Psych: Reports: Migraine, Seizure, Anxiety, Depression, Bipolar Disorder, Schizophrenia Musculoskeletal: Reports: Arthritis, Back Pain Cancer: Reports: Breast Last Menstrual Period: none Other Pertinent Past Medical History: IBS, PARANOID SCHIZOPHRENIA,ENDOMETRIOSIS - Surgical History General Surgical History: Reports: Hysterectomy, Tubal ligation, Cholecystectomy , Tonsillectomy, Orthopedic ( BILATERAL KNEE SURGERY), Hernia Repair (hernia repair in 1997), Other (COLON SURGERY, TUBES IN EARS) - Family History Family History: Reports: Unknown - Social History Smoking Status: Current every day smoker, Heavy tobacco smoker Hx Substance Use: No Alcohol Screening: None Physical Exam - Physical Exam Appearance: Ill-appearing Ill-appearing: Mild Pain Distress: Mild Eyes: HANH, EOMI, Conjunctiva clear ENT: Ears normal, Nose normal, Oropharynx normal Neck: Supple Respiratory: Airway patent, Breath sounds clear, Breath sounds equal, Respirations nonlabored Cardiovascular: RRR, Pulses normal, No rub, No murmur GI/: Tender ( ruq), Bowel sounds hyperactive Musculoskeletal: Normal strength, ROM intact, No edema, No calf tenderness Skin: Warm, Dry, Normal color Neurological: Sensation intact, Motor intact, Reflexes intact, Cranial nerves intact, Alert, Oriented Psychiatric: Anxious Critical Care Note - Critical Care Note Total Time (mins): 0 Course - Course Hematology/Chemistry: 11/23/16 14:45 11/23/16 14:45 Orders, Labs, Meds: Lab Review 11/23/16 11/23/16 11/23/16 14:20 14:45 15:25 WBC 8.01 RBC 5.42 H Hgb 15.9 Hct 42.8 MCV 79.0 L MCH 29.3 MCHC 37.1 H RDW Coeff of [place] 11.9 Plt Count 168 Immature Gran % (Auto) 0.7 Neut % (Auto) 49.6 Lymph % (Auto) 41.1 [place] % (Auto) 7.6 Eos % (Auto) 0.5 Baso % (Auto) 0.5 Immature Gran # (Auto) 0.1 Neut # 4.0 Lymph # 3.3 [place] # 0.6 Eos # 0.0 Baso # 0.0 Sodium 127 L Potassium 4.5 Chloride 86 L Carbon Dioxide 29 Anion Gap 16.5 BUN 18 Creatinine 1.22 Estimated GFR (MDRD) 46.00 BUN/Creatinine Ratio 14.75 Glucose 722 H* Calcium 10.3 H Total Bilirubin 0.33 AST 9 L ALT 18 Alkaline Phosphatase 212 H Total Protein 7.8 Albumin 3.8 Globulin 4.0 Albumin/Globulin Ratio 0.95 Amylase 21 L Lipase 61 Urine Color Yellow Urine Clarity Clear Urine pH 6.0 Ur Specific [place] <=1.005 Urine Protein Negative Urine Glucose (UA) 2+ Urine Ketones Negative Urine Blood Negative Urine Nitrite Negative Urine Bilirubin Negative Urine Urobilinogen 0.2 Ur Leukocyte Esterase Negative Acetone, Qual N H. pylori IgG Antibody Negative Orders Category Date Time Status BLOOD GLUCOSE MONITORING Q1HR CARE 11/23/16 15:23 Active C-DIFF MONITORING (NURSING) BID CARE 11/23/16 14:26 Active ED ACCUCHECK ASSESSMENT .ONCE EMERGENCY 11/23/16 17:14 Active ED IV/MEDIPORT/POWERPORT .ONCE EMERGENCY 11/23/16 14:20 Active ED IV/MEDIPORT/POWERPORT .ONCE EMERGENCY 11/23/16 15:22 Active ACETONE, QUALITATIVE Stat LAB 11/23/16 15:25 Completed AMYLASE Stat LAB 11/23/16 14:45 Completed CBC W/ AUTO DIFF Stat LAB 11/23/16 14:45 Completed COMPREHENSIVE METABOLIC PANEL Stat LAB 11/23/16 14:45 Completed H. PYLORI SCREEN Stat LAB 11/23/16 14:45 Completed LIPASE Stat LAB 11/23/16 14:45 Completed URINALYSIS C & S IF INDICATED Stat LAB 11/23/16 14:20 Completed 0.9 % Sodium Chloride [Saline Flush] MEDS 11/23/16 15:22 Discontinued 1 syr IVF PRN PRN Diphenhydramine Inj [Benadryl] MEDS 11/23/16 15:32 Discontinued 50 mg .ROUTE .STK-MED ONE Insulin Regular, Human [Humulin R] MEDS 11/23/16 15:22 Discontinued 10 unit IVP ONCE STA Insulin Regular, Human [Humulin R] MEDS 11/23/16 17:19 Discontinued 8 unit SUBCUT ONCE STA Ketorolac Tromethamine [Toradol] MEDS 11/23/16 14:59 Discontinued 60 mg IM ONCE STA Promethazine HCl [Phenergan 25 mg/ml Vial] MEDS 11/23/16 15:28 Discontinued 25 mg .ROUTE .STK-MED ONE Promethazine HCl [Phenergan 25 mg/ml Vial] 25 mg MEDS 11/23/16 15:40 Discontinued 0.9 % Sodium Chloride [Sodium Chloride] 50 ml IV ONCE Sodium Chloride 0.9% [Sodium Chloride] 500 ml MEDS 11/23/16 15:[address] ABDOMEN/PELVIS WO CONTRAST Stat RADS 11/23/16 14:20 Completed Medications Discontinued Medications Generic Name Dose Route Start Last Admin Trade Name Freq PRN Reason Stop Dose Admin Sodium Chloride 500 mls @ 1,000 mls/hr 11/23/16 15:29 11/23/16 15:53 Sodium Chloride IV 11/23/16 15:58 1,000 mls/hr BOLUS STA Administration Promethazine HCl 25 mg/ Sodium 51 mls @ 75 mls/hr 11/23/16 15:40 11/23/16 15: 49 Chloride IV 11/23/16 16:20 75 mls/hr ONCE STA Administration Insulin Human Regular 10 unit 11/23/16 15:22 11/23/16 15:47 Humulin R IVP 11/23/16 15:23 10 unit ONCE STA Administration Insulin Human Regular 8 unit 11/23/16 17:19 11/23/16 17:21 Humulin R SUBCUT 11/23/16 17:20 8 unit ONCE STA Administration Ketorolac Tromethamine 60 mg 11/23/16 14:59 11/23/16 15:08 Toradol IM 11/23/16 15:00 60 mg ONCE STA Administration Sodium Chloride 1 syr 11/23/16 15:22 11/23/16 15:48 Saline Flush IVF 1 syr PRN PRN Administration To flush IV Vital Signs: Temp Pulse Resp BP Pulse Ox 11/23/16 13:56 97.4 F L 115 H 20 138/100 H 95 Departure - Departure Time of Disposition: 17:32 Disposition: HOME SELF-CARE Discharge Problem: Abdominal pain, Diverticulitis of duodenum Instructions: Diverticulitis (ED), Diverticulitis Diet (ED) Condition: Fair Pt referred to PMD for follow-up: Yes Additional Instructions: plenty of fluids check sugars regularly return if fever over 101.0 antibiotic until gone [place] for pain recheck PMD 2 weeks sooner if not resolved Prescriptions: Hydrocodone Bit/Acetaminophen [[place] 5-325] 1 - 2 tab PO Q6HR PRN #12 tablet PRN Reason: pain Metronidazole [Flagyl] 500 mg PO TID #21 tablet Allergies/Adverse Reactions: Allergies azithromycin [From Zithromax] Adverse Reaction (Verified 11/23/16 14:16) carbamazepine [From Tegretol] Adverse Reaction (Verified 11/23/16 14:15) chlorpromazine HCl [From Thorazine] Adverse Reaction (Verified 11/23/16 14:15) cyclobenzaprine [From Flexeril] Adverse Reaction (Verified 11/23/16 14:15) dexamethasone [From Decadron] Adverse Reaction (Verified 11/23/16 14:15) dexamethasone sod phosphate [From Decadron] Adverse Reaction (Verified 11/23/16 14:15) dextromethorphan HBr [From Vicks Nature Fusion Cough] Adverse Reaction ( Verified 11/23/16 14:15) hydromorphone [From Dilaudid] Adverse Reaction (Verified 11/23/16 14:15) hydroxyzine HCl [From Vistaril] Adverse Reaction (Verified 11/23/16 14:15) hydroxyzine pamoate [From Vistaril] Adverse Reaction (Verified 11/23/16 14:15) insulin detemir [From Levemir] Adverse Reaction (Verified 11/23/16 14:15) insulin glargine,hum.rec.anlog [From Lantus] Adverse Reaction (Verified 14:15) Iodinated Contrast Media - Oral and Adverse Reaction (Verified 11/23/16 14:15) lorazepam [From Ativan] Adverse Reaction (Verified 11/23/16 14:15) meperidine [From Demerol] Adverse Reaction (Verified 11/23/16 14:15) metformin Adverse Reaction (Verified 11/23/16 14:15) methylprednisolone [From Medrol] Adverse Reaction (Verified 11/23/16 14:15) nitrofurantoin [From Macrobid] Adverse Reaction (Verified 11/23/16 14:15) nitrofurantoin macrocrystal [From Macrobid] Adverse Reaction (Verified 11/23/16 14:15) ondansetron [From Zofran (as hydrochloride)] Adverse Reaction (Verified 14:15) ondansetron HCl [From Zofran] Adverse Reaction (Verified 11/23/16 14:15) Penicillins Adverse Reaction (Verified 11/23/16 14:15) phenytoin sodium [From Dilantin] Adverse Reaction (Verified 11/23/16 14:15) phenytoin sodium extended [From Dilantin] Adverse Reaction (Verified 11/23/16 14 :15) prednisone Adverse Reaction (Verified 11/23/16 14:15) Sulfa (Sulfonamide Antibiotics) Adverse Reaction (Verified 11/23/16 14:15) tramadol HCl [From Ultram] Adverse Reaction (Verified 11/23/16 14:15) trimethoprim [From Bactrim] Adverse Reaction (Verified 11/23/16 14:15) paper tape Adverse Reaction (Uncoded 11/19/16 19:00) Home Medications: Ambulatory Orders Tiotropium [place] [Spiriva] 1 cap IH DAILY 01/24/13 Topiramate [Topamax] 50 mg PO TID 01/24/13 Valsartan [Diovan] 160 mg PO DAILY 01/24/13 Aspirin [Aspirin EC] 81 mg PO DAILY 11/03/13 Pantoprazole Sodium [Protonix] 40 mg PO BID 06/10/14 Insulin Lispro [Humalog] 22 unit SUBCUT BEDTIME 07/22/14 Lovastatin [Mevacor] 40 mg PO BEDTIME 05/16/15 Furosemide [Lasix Tab] 80 mg PO MOWEFR 01/03/16 Multivitamin [One Daily Multivitamin] 1 each PO DAILY 01/03/16 Fluticasone Propionate [Flonase] 1 spray NS BID 04/15/16 Hydrocodone/Acetaminophen [[place] 7.5-325 Tablet] 1 each PO Q6HR PRN #7 tablet Hydroxyzine HCl 25 mg PO TID #90 07/22/16 Quetiapine Fumarate [Seroquel] 300 mg PO BEDTIME #30 07/22/16 Insulin Lispro [Humalog] 15 unit SUBCUT DAILY 08/22/16 Trazodone HCl 200 mg PO BEDTIME #30 10/21/16 Albuterol Sulfate [Proair Hfa] 1 puff IH BID 11/19/16 Cetirizine HCl [Zyrtec] 10 mg PO DAILY 11/23/16 Hydrocodone Bit/Acetaminophen [[place] 5-325] 1 - 2 tab PO Q6HR PRN #12 tablet Metronidazole [Flagyl] 500 mg PO TID #21 tablet 11/23/16
[2016-11-23] MEDS ORDERED: TORADOL IVP STA (14:26)
[2016-11-23 14:53] LABS: BASOPHILS % (AUTO) 0.5 % (0.0-3.0); EOSINOPHILS % (AUTO) 0.5 % (0.0-7.0); HEMATOCRIT 42.8 % (37.0-47.0); HEMOGLOBIN 15.9 g/dl (12.0-16.0); IMMATURE GRANULOCYTE % (AUTO) 0.7 % (0.0-5.0); LYMPHOCYTES # (AUTO) 3.3 K/uL (0.60-3.4); LYMPHOCYTES % (AUTO) 41.1 (10.0-50.0); MEAN CORPUSCULAR HEMOGLOBIN 29.3 pg (27.0-31.0); MEAN CORPUSCULAR HGB CONC 37.1 (31.8-35.4); MONOCYTES # (AUTO) 0.6 K/uL (0.4-2.0); MONOCYTES % (AUTO) 7.6 (0-10); NEUTROPHILS % (AUTO) 49.6; PLATELET COUNT 168 10^3/uL (140-440); RED BLOOD COUNT 5.42 10^6/ul (4.20-5.40); WHITE BLOOD COUNT 8.01 K/ul (4.6-10.2)
[2016-11-23 14:57] LABS: BILIRUBIN,URINE Negative (NEGATIVE); KETONES,URINE Negative (NEGATIVE); LEUKOCYTE ESTERASE ,URINE Negative (NEGATIVE); NITRITE,URINE Negative (NEGATIVE); PROTEIN,URINE Negative (NEGATIVE); URINE, BLOOD Negative (NEGATIVE)
[2016-11-23 14:59] LABS: ADD URINE MICROSCOPIC NO
[2016-11-23] MEDS ORDERED: TORADOL IM STA (14:59)
[2016-11-23 15:08] LABS: H. PYLORI ANTIBODY NEGATIVE (NEGATIVE); H.PYLORI INTERNAL QC INTERNAL QC VALID
[2016-11-23 15:14] LABS: ALBUMIN 3.8 g/dL (3.4-5.0); ALBUMIN/GLOBULIN RATIO 0.95; ANION GAP 16.5; BILIRUBIN,TOTAL 0.33 mg/dL (0.00-1.20); BUN/CREATININE RATIO 14.75; CALCIUM 10.3 mg/dL (8.2-10.2); CREATININE 1.22 mg/dL (0.60-1.30); POTASSIUM 4.5 mmol/L (3.5-5.10); TOTAL PROTEIN 7.8 g/dL (6.4-8.2)
--- NOTE | 2016-11-23 15:14 | CT ---
EXAM: CT abdomen pelvis without contrast HISTORY: Abdominal pain COMPARISON: 08/30/2016 TECHNIQUE: CT abdomen pelvis performed without intravenous contrast. Coronal and sagittal reformat aime images obtained. FINDINGS: Lung bases clear. Trace left pleural effusion. Small to moderate pericardial effusion, mildly decreased. Heart top normal in size. No free air. No acute abnormalities of the bones. Ther e is degenerative change in the spine. Evaluation organ parenchyma limited without contrast. Liver appears normal. Patient status post cholecystectomy. Pancreas appears normal. Spleen appears norm al. Adrenals appear normal. There is a right renal calculus measuring 0.3 cm. No hydronephrosis. No calculi visualized in the normal course of the ureters. Bladder unremarkable. Patient status p ost hysterectomy. No lymphadenopathy or ascites. Aorta normal in caliber. Atherosclerosis. Stoma ch appears normal. There are two duodenal diverticula. Minimal haziness of the surrounding fat. No dilated loops small bowel. Suspect prior appendectomy. There is moderate fecal retention in the r ight and transverse colon. Mild colonic diverticulosis. IMPRESSION: 1. Duodenal diverticula. There is minimal haziness of the surrounding fat. This is possibly system ic in etiology with differential diagnosis including mild duodenal diverticulitis, mild duodenitis , and pancreatitis. 2. Right nephrolithiasis. No hydronephrosis. 3. Moderate fecal retention right and transverse colon. 4. Colonic diverticulosis. Duodenal diverticula. 5. Small to moderate pericardial effusion, mildly decreased. Trace left pleural effusion. 6. Atherosclerosis.
[2016-11-23] MEDS ORDERED: ZOFRAN 4 MG/2 ML IVP STA (15:22)
[2016-11-23] MEDS ORDERED: HUMULIN R IVP STA (15:22)
[2016-11-23] MEDS ORDERED: BENADRYL 25 MG in SODIUM CHLORIDE 100 ML IV STA (15:28)
[2016-11-23] MEDS ORDERED: PHENERGAN 25 MG/ML VIAL ONE (15:28)
[2016-11-23] MEDS ORDERED: SODIUM CHLORIDE 500 ML IV STA (15:29)
[2016-11-23] MEDS ORDERED: BENADRYL ONE (15:32)
[2016-11-23] MEDS ORDERED: PHENERGAN 25 MG/ML VIAL 25 MG in SODIUM CHLORIDE 50 ML IV STA (15:40)
[2016-11-23] MEDS ORDERED: HUMULIN R SUBCUT STA (17:19)
== END 2016-11-23 18:06 | disposition home or self-care (01) ==
LOC: ED 13:55
DX: K57.12 Diverticulitis of small intestine without perforation or abscess without bleeding (principal); R10.11 Right upper quadrant pain; E11.9 Type 2 diabetes mellitus without complications; I10 Essential (primary) hypertension; F17.210 Nicotine dependence, cigarettes, uncomplicated; Z79.899 Other long term (current) drug therapy
CPT/HCPCS: 36415; 80053; 81001; 82009; 82150; 82962; 83690; 85025; 86677; 96361; 96365; 96372; 96375; 99283

== ENCOUNTER 2016-12-19 20:03 | Emergency (ER) ==
[2016-12-19 20:11] VITALS: TEMP 98.1; BMI 26.6
--- NOTE | 2016-12-19 20:56 | CT ---
EXAM: CT scan pelvis without contrast HISTORY: Fall COMPARISON: None. FINDINGS: Contiguous axial images obtained through the pelvis without contrast utilizing 3-mm colli mation. Sagittal and coronal reconstructions were imaged and reviewed.. Mild facet arthropathy is seen lower lumbar spine. There is no acute fracture or dislocation.. There has been prior hysterec jennifer. There is diverticulosis without diverticulitis. Clips are seen in the right lower quadrant. IMPRESSION: No acute findings
--- NOTE | 2016-12-19 21:03 | ED.PDOC ---
General ED Provider: Dr. THERESE REYNOLDS-ER Chief Complaint: Hip Pain/Injury Stated Complaint: i fell in the shower when i was dizzy--i am not dizzy now Time Seen by Physician: 20:05 Mode of Arrival: Wheelchair Information Source: Patient, Family Exam Limitations: No limitations Primary Care Provider: FLAKITA MCALLISTER Nursing and Triage Documentation Reviewed and Agree: Yes Musculoskeletal Complaint Exam - Hip/Pelvis Complaint/Exam Location of Pain: Reports: Left, Hip Mechanism of Injury: Reports: Trauma Onset/Duration: one hour Symptoms Are: Still present Initial Severity: Mild Current Severity: Mild Location: Reports: Discrete (left hip . left flores and left ankle) Character: Reports: Dull, Aching, Spasmodic, Stiffness Aggravating: Reports: Movement, Weight bearing Alleviating: Reports: None Associated Signs and Symptoms: Denies: Swelling, Redness, Bruising, Fever, Weakness, Dizziness, Syncope, Knee pain Able to Bear Weight: Yes Septic Arthritis Risk Factors: Reports: None NV Bundle Intact Distal to Injury: Yes Differential Diagnoses: Contusion, Fracture, Sprain, Strain Review of Systems - Review Of Systems Constitutional: Reports: No symptoms Eyes: Reports: No symptoms Ears, Nose, Mouth, Throat: Reports: No symptoms Respiratory: Reports: No symptoms Cardiac: Reports: No symptoms GI: Reports: No symptoms : Reports: No symptoms Musculoskeletal: Reports: Joint pain, Muscle pain Skin: Reports: No symptoms Neurological: Reports: No symptoms Endocrine: Reports: No symptoms Hematologic/Lymphatic: Reports: No symptoms All Other Systems: Reviewed and Negative Past Medical History - Past Medical History Previously Healthy: No Endocrine: Reports: DM 2, Dyslipidemia Cardiovascular: Reports: CAD, [place], Hypertension, CHF, A-Fib Respiratory: Reports: COPD, Asthma Hematological: Reports: Unknown Gastrointestinal: Reports: GERD, Diverticulitis, Other Genitourinary: Reports: Kidney stones, Other Neuro/Psych: Reports: Migraine, Seizure, Anxiety, Depression, Bipolar Disorder, Schizophrenia Musculoskeletal: Reports: Arthritis, Back Pain Cancer: Reports: Breast Last Menstrual Period: PT HAS HAD A HYSTERECTOMY Other Pertinent Past Medical History: IBS, PARANOID SCHIZOPHRENIA,ENDOMETRIOSIS - Surgical History General Surgical History: Reports: Hysterectomy, Tubal ligation, Cholecystectomy , Tonsillectomy, Orthopedic, Hernia Repair, Other - Family History Family History: Reports: Unknown - Social History Smoking Status: Current every day smoker, Heavy tobacco smoker Hx Substance Use: No Alcohol Screening: None Lives: With family - Immunizations Tetanus Shot up to Date: (UNKNOWN) Physical Exam - Physical Exam Appearance: Well-appearing, No pain distress, Well-nourished Pain Distress: Mild Eyes: HANH, EOMI, Conjunctiva clear ENT: Ears normal, Nose normal, Oropharynx normal Neck: Supple Respiratory: Airway patent Cardiovascular: RRR, Pulses normal, No rub, No murmur GI/: Soft, Nontender, No masses, Bowel sounds normal, No Organomegaly Musculoskeletal: Limited ROM Skin: Warm, Dry, Normal color Neurological: Sensation intact Psychiatric: Affect appropriate, Mood appropriate Interpretation - Radiology Interpretation Radiology Interpretation By: Radiologist Radiology Results: Negative Re-Evaluation - Re-Evaluation Time of Re-Evaluation: 23:36 Status: Improved Vital Signs Stable: Yes (bp 126/80 --fsbs 250) Pain Level: 1 Appearance: NAD Lungs: Clear Skin: Warm and Dry Neuro: Alert and Oriented X3 CV: RRR Critical Care Note - Critical Care Note Total Time (mins): 0 Course - Course Hematology/Chemistry: 12/19/16 21:26 12/19/16 21:26 Orders, Labs, Meds: Lab Review 12/19/16 12/19/16 21:22 21:26 WBC 8.39 RBC 5.67 H Hgb 16.4 H Hct 45.8 MCV 80.8 L MCH 28.9 MCHC 35.8 H RDW Coeff of Yanet 12.0 Plt Count 198 Immature Gran % (Auto) 0.7 Neut % (Auto) 42.4 Lymph % (Auto) 47.9 [place] % (Auto) 7.7 Eos % (Auto) 0.8 Baso % (Auto) 0.5 Immature Gran # (Auto) 0.1 Neut # 3.6 Lymph # 4.0 H [place] # 0.7 Eos # 0.1 Baso # 0.0 Sodium 133 L Potassium 3.6 Chloride 86 L Carbon Dioxide 35 H Anion Gap 15.6 BUN 14 Creatinine 1.28 Estimated GFR (MDRD) 44.00 BUN/Creatinine Ratio 10.93 Glucose 536 H* Calcium 10.0 Total Bilirubin 0.40 AST 10 L ALT 11 L Alkaline Phosphatase 155 H Total Creatine Kinase 23 Troponin I 0.0200 Total Protein 7.7 Albumin 3.7 Globulin 4.0 Albumin/Globulin Ratio 0.93 Urine Color Yellow Urine Clarity Clear Urine pH 5.5 Ur Specific [place] <=1.005 Urine Protein Negative Urine Glucose (UA) 2+ Urine Ketones Negative Urine Blood Negative Urine Nitrite Negative Urine Bilirubin Negative Urine Urobilinogen 0.2 Ur Leukocyte Esterase Negative Orders Category Date Time Status EKG-(ED ONLY) Stat CARDIO 12/19/16 21:12 Completed BLOOD GLUCOSE MONITORING Q1HR CARE 12/19/16 22:01 Active ED IV/MEDIPORT/POWERPORT .ONCE EMERGENCY 12/19/16 21:12 Active CBC W/ AUTO DIFF Stat LAB 12/19/16 21:26 Completed COMPREHENSIVE METABOLIC PANEL Stat LAB 12/19/16 21:26 Completed CREATINE KINASE Stat LAB 12/19/16 21:26 Completed TROPONIN I Stat LAB 12/19/16 21:26 Completed URINALYSIS C & S IF INDICATED Stat LAB 12/19/16 21:22 Completed 0.9 % Sodium Chloride [Saline Flush] MEDS 12/19/16 21:12 Ordered 1 syr IVF PRN PRN Insulin Regular, Human [Humulin R] MEDS 12/19/16 21:56 Discontinued 15 unit IVP ONCE STA Sodium Chloride 0.9% [Sodium Chloride] 1,000 ml MEDS 12/19/16 21:[address] ANKLE LEFT WITHOUT CONTRAST Stat RADS 12/19/16 20:[address] PELVIS W/O CONTRAST Stat RADS 12/19/16 20:[address] TIB/FIB LEFT WO CONTRAST Stat RADS 12/19/16 20:16 Completed Medications Generic Name Dose Route Start Last Admin Trade Name Freq PRN Reason Stop Dose Admin Sodium Chloride 1 syr 12/19/16 21:12 Saline Flush IVF PRN PRN To flush IV Discontinued Medications Generic Name Dose Route Start Last Admin Trade Name Freq PRN Reason Stop Dose Admin Sodium Chloride 1,000 mls @ 1,000 mls/hr 12/19/16 21:12 12/19/16 21:29 Sodium Chloride IV 12/19/16 22:11 1,000 mls/hr BOLUS STA Administration Insulin Human Regular 15 unit 12/19/16 21:56 12/19/16 22:14 Humulin R IVP 12/19/16 21:57 15 unit ONCE STA Administration Vital Signs: Temp Pulse Resp BP Pulse Ox 12/19/16 22:31 126/79 12/19/16 21:12 76 74/51 L 12/19/16 21:11 76 76/60 L 12/19/16 21:10 84 89/71 L 12/19/16 20:04 98.1 F 110 H 20 95/62 97 Departure - Departure Time of Disposition: 23:29 Disposition: HOME SELF-CARE Discharge Problem: Hip pain, Orthostasis Instructions: Hip Pain (ED) Condition: Fair Pt referred to PMD for follow-up: Yes Additional Instructions: f/u with pcp--talk to them tomorrow about the lasix Allergies/Adverse Reactions: Allergies azithromycin [From Zithromax] Adverse Reaction (Verified 12/19/16 20:13) carbamazepine [From Tegretol] Adverse Reaction (Verified 12/19/16 20:13) chlorpromazine HCl [From Thorazine] Adverse Reaction (Verified 12/19/16 20:13) cyclobenzaprine [From Flexeril] Adverse Reaction (Verified 12/19/16 20:13) dexamethasone [From Decadron] Adverse Reaction (Verified 12/19/16 20:13) dexamethasone sod phosphate [From Decadron] Adverse Reaction (Verified 12/19/16 20:13) dextromethorphan HBr [From Vicks Nature Fusion Cough] Adverse Reaction ( Verified 12/19/16 20:13) hydromorphone [From Dilaudid] Adverse Reaction (Verified 12/19/16 20:13) hydroxyzine HCl [From Vistaril] Adverse Reaction (Verified 12/19/16 20:13) hydroxyzine pamoate [From Vistaril] Adverse Reaction (Verified 12/19/16 20:13) insulin detemir [From Levemir] Adverse Reaction (Verified 12/19/16 20:13) insulin glargine,hum.rec.anlog [From Lantus] Adverse Reaction (Verified 20:13) Iodinated Contrast Media - Oral and Adverse Reaction (Verified 12/19/16 20:13) lorazepam [From Ativan] Adverse Reaction (Verified 12/19/16 20:13) meperidine [From Demerol] Adverse Reaction (Verified 12/19/16 20:13) metformin Adverse Reaction (Verified 12/19/16 20:13) methylprednisolone [From Medrol] Adverse Reaction (Verified 12/19/16 20:13) nitrofurantoin [From Macrobid] Adverse Reaction (Verified 12/19/16 20:13) nitrofurantoin macrocrystal [From Macrobid] Adverse Reaction (Verified 12/19/16 20:13) ondansetron [From Zofran (as hydrochloride)] Adverse Reaction (Verified 20:13) ondansetron HCl [From Zofran] Adverse Reaction (Verified 12/19/16 20:13) Penicillins Adverse Reaction (Verified 12/19/16 20:13) phenytoin sodium [From Dilantin] Adverse Reaction (Verified 12/19/16 20:13) phenytoin sodium extended [From Dilantin] Adverse Reaction (Verified 12/19/16 20 :13) prednisone Adverse Reaction (Verified 12/19/16 20:13) Sulfa (Sulfonamide Antibiotics) Adverse Reaction (Verified 12/19/16 20:13) tramadol HCl [From Ultram] Adverse Reaction (Verified 12/19/16 20:13) trimethoprim [From Bactrim] Adverse Reaction (Verified 12/19/16 20:13) paper tape Adverse Reaction (Uncoded 12/19/16 20:13) Home Medications: Ambulatory Orders Tiotropium [place] [Spiriva] 1 cap IH DAILY 01/24/13 Topiramate [Topamax] 50 mg PO QID 01/24/13 Aspirin [Aspirin EC] 81 mg PO DAILY 11/03/13 Pantoprazole Sodium [Protonix] 40 mg PO BID 06/10/14 Insulin Lispro [Humalog] 22 unit SUBCUT BEDTIME 07/22/14 Lovastatin [Mevacor] 40 mg PO BEDTIME 05/16/15 Furosemide [Lasix Tab] 80 mg PO TUTHSA 01/03/16 Multivitamin [One Daily Multivitamin] 1 each PO DAILY 01/03/16 Fluticasone Propionate [Flonase] 1 spray NS BID PRN 04/15/16 Hydroxyzine HCl 25 mg PO TID #90 07/22/16 Quetiapine Fumarate [Seroquel] 300 mg PO BEDTIME #30 07/22/16 Insulin Lispro [Humalog] 15 unit SUBCUT DAILY 08/22/16 Trazodone HCl 200 mg PO BEDTIME #30 10/21/16 Cetirizine HCl [Zyrtec] 10 mg PO DAILY 11/23/16 Budesonide/Formoterol Fumarate [Symbicort 160-4.5 Mcg Inhaler] 2 puff IH BID Hydrocodone/Acetaminophen [[place] 7.5-325 Tablet] 1 each PO Q6HR PRN 12/19/16 Disposition Discussed With: Patient, Family
--- NOTE | 2016-12-19 21:06 | CT ---
EXAM: CT scan left tibia fibula HISTORY: Trauma COMPARISON: None. FINDINGS: Contiguous axial images obtained from the distal femur through the ankle joint without co ntrast utilizing 2-mm collimation. Sagittal and coronal reconstructions were imaged and reviewed.. Postoperative changes noted consistent with prior medial hemiarthroplasty which appears intact. The re is no acute fracture or dislocation. There is no evidence of a joint effusion. IMPRESSION: Intact appearing hemiarthroplasty No acute findings
[2016-12-19] MEDS ORDERED: SODIUM CHLORIDE 1,000 ML IV STA ×2 (21:12→23:41)
--- NOTE | 2016-12-19 21:13 | CT ---
EXAM: CT left ankle without intravenous contrast 12/19/2016. Sagittal and coronal reformatted imag es obtained HISTORY: Trauma. Fall COMPARISON: 12/19/2016 FINDINGS: Chronic osteoarthritic degenerative change. This extends throughout the ankle and midfoo t. Multifocal joint space narrowing and osteophyte formation. Small bony fragments adjacent to the distal fibula appear chronic and degenerative. The Achilles insertion site is intact There is no evidence of acute fracture or dislocation. IMPRESSION: No acute post traumatic osseous abnormality.
[2016-12-19 21:27] LABS: BASOPHILS % (AUTO) 0.5 % (0.0-3.0); EOSINOPHILS # (AUTO) 0.1 K/ul (0.0-0.7); EOSINOPHILS % (AUTO) 0.8 % (0.0-7.0); HEMATOCRIT 45.8 % (37.0-47.0); HEMOGLOBIN 16.4 g/dl (12.0-16.0); IMMATURE GRANULOCYTE % (AUTO) 0.7 % (0.0-5.0); LYMPHOCYTES % (AUTO) 47.9 (10.0-50.0); MEAN CORPUSCULAR HEMOGLOBIN 28.9 pg (27.0-31.0); MEAN CORPUSCULAR HGB CONC 35.8 (31.8-35.4); MEAN CORPUSCULAR VOLUME 80.8 fl (81.0-99.0); MONOCYTES # (AUTO) 0.7 K/uL (0.4-2.0); MONOCYTES % (AUTO) 7.7 (0-10); NEUTROPHILS # (AUTO) 3.6 K/ul (2.0-6.9); NEUTROPHILS % (AUTO) 42.4; PLATELET COUNT 198 10^3/uL (140-440); RED BLOOD COUNT 5.67 10^6/ul (4.20-5.40); WHITE BLOOD COUNT 8.39 K/ul (4.6-10.2)
[2016-12-19 21:29] LABS: ADD URINE MICROSCOPIC NO; BILIRUBIN,URINE Negative (NEGATIVE); KETONES,URINE Negative (NEGATIVE); LEUKOCYTE ESTERASE ,URINE Negative (NEGATIVE); NITRITE,URINE Negative (NEGATIVE); PH,URINE 5.5 (5-9); PROTEIN,URINE Negative (NEGATIVE); URINE, BLOOD Negative (NEGATIVE)
[2016-12-19 21:53] LABS: ALBUMIN 3.7 g/dL (3.4-5.0); ALBUMIN/GLOBULIN RATIO 0.93; ANION GAP 15.6; BILIRUBIN,TOTAL 0.4 mg/dL (0.00-1.20); BUN/CREATININE RATIO 10.93; CREATININE 1.28 mg/dL (0.60-1.30); POTASSIUM 3.6 mmol/L (3.5-5.10); TOTAL PROTEIN 7.7 g/dL (6.4-8.2); TROPONIN I 0.02 ng/ml (0.0000-0.4000)
[2016-12-19] MEDS ORDERED: HUMULIN R IVP STA (21:56)
[2016-12-19 22:32] VITALS: BP 126/79
== END 2016-12-19 23:43 | disposition home or self-care (01) ==
LOC: ED 20:03
DX: M25.552 Pain in left hip (principal); S99.912A Unspecified injury of left ankle, initial encounter; S89.92XA Unspecified injury of left lower leg, initial encounter; I95.1 Orthostatic hypotension; W18.30XA Fall on same level, unspecified, initial encounter; E11.9 Type 2 diabetes mellitus without complications; E78.5 Hyperlipidemia, unspecified; I25.10 Atherosclerotic heart disease of native coronary artery without angina pectoris; I50.9 Heart failure, unspecified; I10 Essential (primary) hypertension; I25.2 Old myocardial infarction; F17.210 Nicotine dependence, cigarettes, uncomplicated; Z79.899 Other long term (current) drug therapy; Z87.19 Personal history of other diseases of the digestive system; Z86.69 Personal history of other diseases of the nervous system and sense organs; Z87.09 Personal history of other diseases of the respiratory system; Z85.3 Personal history of malignant neoplasm of breast
CPT/HCPCS: 36415; 80053; 81001; 82550; 84484; 85025; 93005; 93010; 96360; 96361; 96375; 99285

== ENCOUNTER 2016-12-30 10:02 | Outpatient (CLI) ==
[2013-01-24 14:52] VITALS: TEMP 98.1
--- NOTE | 2016-12-30 10:51 | CT ---
EXAM: CT of the soft tissue neck without contrast History: Palpable abnormality near the right ear. Comparison: CT soft tissue neck 10/29/2015 Technique: Multiplanar CT images through the soft tissue neck were obtained without the administrat ion of IV contrast Findings: The orbits are intact. Visualized intracranial contents demonstrate no grossly acute find ings. No air-fluid levels are seen within the sinuses. Mastoid air cells are generally clear. No acute osseous abnormalities. Degenerative disc disease seen within the lower cervical spine. Epigl ottis is not thickened. Left parotid gland is unremarkable. Stable 9 mm soft tissue mass within th e right parotid gland. This probably correlates with the palpable abnormality. Submandibular glands are not inflamed. No discrete thyroid nodules identified by CT. Mild paraseptal emphysema seen wi thin the upper lungs. Mild bronchial wall thickening again seen within the upper lungs. Evaluation for lymph nodes is limited due to the lack of contrast administration but no pathologically enlarged lymph nodes are seen. Impression: 1. No significant interval change in the right parotid mass which could be benign or malignant and follow-up / further evaluation recommended. 2. Stable mild bronchial wall thickening within the visualized upper lungs suggesting a mild bronch itis.
== END 2016-12-30 10:03 | disposition home or self-care (01) ==
LOC: RAD 10:02
PROVIDERS: ATTEND Family Medicine
DX: R59.0 Localized enlarged lymph nodes (principal)

== ENCOUNTER 2017-01-06 06:52 | Outpatient (CLI) ==
[2013-01-24 14:52] VITALS: TEMP 98.1
--- NOTE | 2017-01-10 13:30 | ECHO2D ---
Date of Exam: 01/06/17 Ordering Physician[facility] Reason for Echo: PERICARDIAL EFFUSION M-Mode Normal Adult Results LV Dimensions Normal Adult Results AoV Opening excursions >1.6 >1.6 LVEDD-base- 3.5-5.8 4.6 Ao root dimensions 2.0-3.7 3.5 LVESD-base- 3.1-4.6 L. Atrium dimensions 1.9-3.8 4.2 Post. Wall thickness 0.8-1.1 1.2 IV septum (thickness) 0.7-1.2 1.2 Post. Wall excursion 0.72-1.3 0.9 Septal motion 0.4 Systolic motion R. Ventricular cavity 1.5-2.0 NORMAL LVEF 60% 42% Paradoxical septal wall motion NORMAL 2-D : HYPOKINETIC LEFT VENTRICLE, ENLARGED LEFT ATRIAL CAVITY, NORMAL VALVES, MILD PERICARDIAL EFFUSION, NO THROMBUS M-MODE: MV: NORMAL AV: NORMAL TV: NORMAL PV: CHAMBER SIZE: ENLARGED LEFT ATRIAL CAVITY WALL MOTION: HYPOKINETIC LEFT VENTRICLE PERICARDIUM: NORMAL INTERPRETATION: 1. LEFT VENTRICULAR HYPERTROPHY MILD WITH ENLARGED LEFT ATRIAL CAVITY 2. HYPOKINETIC LEFT VENTRICLE WITH EJECTION FRACTION 42% 3. VALVES--NORMAL 4. MILD PERICARDIAL EFFUSION--UNCHANGED 09/19/15 MTDD
== END 2017-01-06 06:53 | disposition home or self-care (01) ==
LOC: CAR 06:52
PROVIDERS: ATTEND Family Medicine
DX: I31.3 Pericardial effusion (noninflammatory) (principal)

== ENCOUNTER 2017-03-04 13:49 | Emergency (ER) ==
[2017-03-04 13:56] VITALS: BP 104/70; TEMP 98.2; BMI 25.0
[2017-03-04] MEDS ORDERED: SOLU-MEDROL 125 MG IVP STA (14:19)
[2017-03-04] MEDS ORDERED: DUONEB NEB STA ×2 (14:19→14:57)
[2017-03-04] MEDS ORDERED: DECADRON 4 MG/ML SDV IM STA (14:29)
[2017-03-04 14:59] LABS: ABG BASE EXCESS 3 (-2.0-2.0); ABG PH 7.45 (7.35-7.45)
[2017-03-04 15:00] LABS: ABG HCO3 27 (22.0-26.0); ABG TCO2 28 (22.0-28.0)
[2017-03-04 15:06] LABS: BASOPHILS % (AUTO) 0.6 % (0.0-3.0); EOSINOPHILS # (AUTO) 0.1 K/ul (0.0-0.7); EOSINOPHILS % (AUTO) 0.7 % (0.0-7.0); HEMATOCRIT 41.2 % (37.0-47.0); HEMOGLOBIN 15.3 g/dl (12.0-16.0); IMMATURE GRANULOCYTE % (AUTO) 0.7 % (0.0-5.0); LYMPHOCYTES # (AUTO) 3.2 K/uL (0.60-3.4); LYMPHOCYTES % (AUTO) 46.1 (10.0-50.0); MEAN CORPUSCULAR HEMOGLOBIN 30.1 pg (27.0-31.0); MEAN CORPUSCULAR HGB CONC 37.1 (31.8-35.4); MEAN CORPUSCULAR VOLUME 81.1 fl (81.0-99.0); MONOCYTES # (AUTO) 0.5 K/uL (0.4-2.0); MONOCYTES % (AUTO) 6.9 (0-10); NEUTROPHILS # (AUTO) 3.1 K/ul (2.0-6.9); PLATELET COUNT 143 10^3/uL (140-440); RED BLOOD COUNT 5.08 10^6/ul (4.20-5.40); WHITE BLOOD COUNT 6.84 K/ul (4.6-10.2)
--- NOTE | 2017-03-04 15:43 | CT ---
EXAM: CT THORAX HISTORY: Shortness of breath. TECHNIQUE: CT thorax without old intravenous contrast. 5-mm axial sections. Coronal and sagittal r e-formations. COMPARISON: 12/14/2015 FINDINGS: The heart size is upper limit normal to borderline enlarged. There is a small pericardial effusion which is stable. Mild atherosclerotic disease. A few nonspecific small mediastinal lymph nodes, so me which are calcified and consistent with old granulomatous disease. There is a 1 cm calcified granuloma in the right middle lobe. No obvious consolidated pneumonia, acu te infiltrate, pleural fluid, vascular congestion or pneumothorax. Mild scoliosis. No acute bony abnormality. IMPRESSION: 1. No obvious acute cardiopulmonary process. 2. Heart size upper limit normal to borderline enlarged. Stable small pericardial effusion.
[2017-03-04 16:03] LABS: ALBUMIN 3.6 g/dL (3.4-5.0); ALBUMIN/GLOBULIN RATIO 0.97; ALKALINE PHOSPHATASE 144 U/L (42-98); ANION GAP 16.5; BILIRUBIN,TOTAL 0.38 mg/dL (0.00-1.20); CALCIUM 9.4 mg/dL (8.2-10.2); CARBON DIOXIDE 26 mmol/L (21-32); CHLORIDE 95 mmol/L (98-107); CREATININE 0.86 mg/dL (0.60-1.30); GLUCOSE 414 mg/dL (70-110); POTASSIUM 4.5 mmol/L (3.5-5.10); SODIUM 133 mmol/L (136-145); TOTAL PROTEIN 7.3 g/dL (6.4-8.2)
[2017-03-04 16:04] LABS: ALANINE AMINOTRANSFERASE 10 U/L (12-78); ASPARTATE AMINO TRANSFERASE 15 U/L (15-37); BLOOD UREA NITROGEN 9 mg/dL (7-18); BUN/CREATININE RATIO 10.46; CREATINE KINASE 21 U/L
--- NOTE | 2017-03-04 16:17 | ED.PDOC ---
General ED Provider: Dr. SAMIA SILVA Chief Complaint: Shortness of Air Stated Complaint: shortness of breath Time Seen by Physician: 14:00 Mode of Arrival: Wheelchair Information Source: Patient Exam Limitations: No limitations Primary Care Provider: FLAKITA MCALLISTER Nursing and Triage Documentation Reviewed and Agree: Yes Respiratory Complaint Exam - Respiratory Complaint/Exam Symptoms Are: Resolved Timing: Constant, Intermittent Initial Severity: Moderate Current Severity: Mild Location: Chest Character: Reports: Non-productive cough Aggravating: Reports: None Alleviating: Reports: None Associated Signs and Symptoms: Denies: Rapid breathing, Dyspnea, Fever, Chills, Chest pain, Pleuritic chest pain, Wheezing, Hemoptysis, Dizziness, Calf pain, Calf swelling, Edema, URI, Nasal congestion, Hoarseness, Sinus discomfort, Vomiting, Sore throat, Weight loss, Decreased oral intake, Increased thirst, Increased appetite, Increased urination Related History: Reports: Similar episode History of Healthcare-Acquired Pneumonia: No Related Surgical History: Reports: None Pulmonary Embolism Risk Factors: Smoking Cardiac Risk Factors: Reports: Elevated lipids, Diabetes, Hypertension Tuberculosis Risk Factors: Reports: Chronic Resp. Faliure Status Asthmaticus Risk Factors: Reports: None Home Oxygen Use: No Recent Stress Test: No Recent Echo/LV Function: No Current Antibiotic Use: No Current Asthma Medication Use: No Respiratory Distress: None Inadequate Respiratory Effort: No Dysphagia Present: No Stridor Present: No JVD Present: No Accessory Muscle Use: No Differential Diagnoses: COPD Exacerbation, Pneumonia, Bronchitis Review of Systems - Review Of Systems Constitutional: Reports: No symptoms Eyes: Reports: No symptoms Ears, Nose, Mouth, Throat: Reports: No symptoms Respiratory: Reports: Cough, Short of air, Wheezing Cardiac: Reports: No symptoms GI: Reports: No symptoms : Reports: No symptoms Musculoskeletal: Reports: No symptoms Skin: Reports: No symptoms Neurological: Reports: No symptoms Endocrine: Reports: No symptoms Hematologic/Lymphatic: Reports: No symptoms All Other Systems: Reviewed and Negative Past Medical History - Past Medical History Previously Healthy: No Endocrine: Reports: DM 2, Dyslipidemia Cardiovascular: Reports: CAD, DC, Hypertension, CHF, A-Fib Respiratory: Reports: COPD, Asthma Hematological: Reports: Unknown Gastrointestinal: Reports: GERD, Diverticulitis, Other Genitourinary: Reports: Kidney stones, Other Neuro/Psych: Reports: Migraine, Seizure, Anxiety, Depression, Bipolar Disorder, Schizophrenia Musculoskeletal: Reports: Arthritis, Back Pain Cancer: Reports: Breast Last Menstrual Period: hysterectomy Other Pertinent Past Medical History: IBS, PARANOID SCHIZOPHRENIA,ENDOMETRIOSIS - Surgical History General Surgical History: Reports: Hysterectomy, Tubal ligation, Cholecystectomy , Tonsillectomy, Orthopedic, Hernia Repair, Other - Family History Family History: Reports: Unknown - Social History Smoking Status: Current every day smoker, Heavy tobacco smoker Hx Substance Use: No Alcohol Screening: None Physical Exam - Physical Exam Appearance: Well-appearing, No pain distress, Well-nourished Eyes: HANH, EOMI, Conjunctiva clear ENT: Ears normal, Nose normal, Oropharynx normal Respiratory: Airway patent, Breath sounds clear, Breath sounds equal, Respirations nonlabored Cardiovascular: RRR, Pulses normal, No rub, No murmur GI/: Soft, Nontender, No masses, Bowel sounds normal, No Organomegaly Musculoskeletal: Normal strength, ROM intact, No edema, No calf tenderness Skin: Warm, Dry, Normal color Neurological: Sensation intact, Motor intact, Reflexes intact, Cranial nerves intact, Alert, Oriented Psychiatric: Affect appropriate, Mood appropriate Interpretation - Radiology Interpretation Radiology Interpretation By: Radiologist Radiology Results: No acute changes Critical Care Note - Critical Care Note Total Time (mins): 0 Course - Course Hematology/Chemistry: 03/04/17 14:17 03/04/17 14:56 Orders, Labs, Meds: Lab Review 03/04/17 03/04/17 14:17 14:56 WBC 6.84 RBC 5.08 Hgb 15.3 Hct 41.2 MCV 81.1 MCH 30.1 MCHC 37.1 H RDW Coeff of [place] 12.4 Plt Count 143 Immature Gran % (Auto) 0.7 Neut % (Auto) 45.0 Lymph % (Auto) 46.1 [place] % (Auto) 6.9 Eos % (Auto) 0.7 Baso % (Auto) 0.6 Immature Gran # (Auto) 0.1 Neut # 3.1 Lymph # 3.2 [place] # 0.5 Eos # 0.1 Baso # 0.0 Puncture Site R brach O2 Saturation 96.0 ABG pH 7.45 ABG pCO2 39.0 ABG pO2 77.0 L ABG HCO3 27 H ABG Total CO2 28 ABG Base Excess 3 H Marty Test + FiO2 % 21.0 Sodium 133 L Potassium 4.5 Chloride 95 L Carbon Dioxide 26 Anion Gap 16.5 BUN 9 Creatinine 0.86 Estimated GFR (MDRD) 69.00 BUN/Creatinine Ratio 10.46 Glucose 414 H Calcium 9.4 Total Bilirubin 0.38 AST 15 ALT 10 L Alkaline Phosphatase 144 H Total Creatine Kinase 21 Troponin I < 0.0100 Total Protein 7.3 Albumin 3.6 Globulin 3.7 Albumin/Globulin Ratio 0.97 Orders Category Date Time Status ABG DRAW REQUEST Stat CARDIO 03/04/17 14:18 Completed EKG-(ED ONLY) Stat CARDIO 03/04/17 14:18 Completed NEBULIZER TREATMENT Stat CARDIO 03/04/17 14:18 Completed ABG Stat LAB 03/04/17 14:17 Completed CBC W/ AUTO DIFF Stat LAB 03/04/17 14:17 Completed COMPREHENSIVE METABOLIC PANEL Stat LAB 03/04/17 14:56 Completed CREATINE KINASE Stat LAB 03/04/17 14:56 Completed TROPONIN I Stat LAB 03/04/17 14:56 Completed Dexamethasone 4 mg/ml Inj [Decadron 4 mg/ml Sdv] MEDS 03/04/17 14:29 Discontinued 4 mg IM ONCE STA Ipratropium/Albuterol Neb [Duoneb] MEDS 03/04/17 14:57 Discontinued 1 vial NEB ONCE STA CT CHEST W/O CONTRAST Stat RADS 03/04/17 14:20 Completed Medications Discontinued Medications Generic Name Dose Route Start Last Admin Trade Name Freq PRN Reason Stop Dose Admin Albuterol/Ipratropium 1 vial 03/04/17 14:57 03/04/17 14:59 Duoneb NEB 03/04/17 14:58 1 vial ONCE STA Administration Dexamethasone Sodium Phosphate 4 mg 03/04/17 14:29 Decadron 4 Mg/Ml Sdv IM 03/04/17 14:30 ONCE STA Vital Signs: Temp Pulse Resp BP Pulse Ox 03/04/17 13:50 98.2 F 116 H 20 104/70 96 Departure - Departure Time of Disposition: 16:16 Disposition: HOME SELF-CARE Discharge Problem: Chronic obstructive pulmonary disease Qualifiers: COPD type: unspecified COPD Qualifier Code: (J44.9) Chronic obstructive pulmonary disease, unspecified Instructions: COPD (Chronic Obstructive Pulmonary Disease) (ED) Condition: Good Pt referred to PMD for follow-up: Yes Additional Instructions: Please call your Family Physician as soon as possible to schedule a follow-up appointment. Allergies/Adverse Reactions: Allergies azithromycin [From Zithromax] Adverse Reaction (Verified 03/04/17 13:58) carbamazepine [From Tegretol] Adverse Reaction (Verified 03/04/17 13:58) chlorpromazine HCl [From Thorazine] Adverse Reaction (Verified 03/04/17 13:58) cyclobenzaprine [From Flexeril] Adverse Reaction (Verified 03/04/17 13:58) dexamethasone [From Decadron] Adverse Reaction (Verified 03/04/17 13:58) dexamethasone sod phosphate [From Decadron] Adverse Reaction (Verified 03/04/17 13:58) dextromethorphan HBr [From Vicks Nature Fusion Cough] Adverse Reaction ( Verified 03/04/17 13:58) hydromorphone [From Dilaudid] Adverse Reaction (Verified 03/04/17 13:58) hydroxyzine HCl [From Vistaril] Adverse Reaction (Verified 03/04/17 13:58) hydroxyzine pamoate [From Vistaril] Adverse Reaction (Verified 03/04/17 13:58) insulin detemir [From Levemir] Adverse Reaction (Verified 03/04/17 13:58) insulin glargine,hum.rec.anlog [From Lantus] Adverse Reaction (Verified 13:58) Iodinated Contrast- Oral and IV Dye Adverse Reaction (Verified 03/04/17 13:58) lorazepam [From Ativan] Adverse Reaction (Verified 03/04/17 13:58) meperidine [From Demerol] Adverse Reaction (Verified 03/04/17 13:58) metformin Adverse Reaction (Verified 03/04/17 13:58) methylprednisolone [From Medrol] Adverse Reaction (Verified 03/04/17 13:58) nitrofurantoin [From Macrobid] Adverse Reaction (Verified 03/04/17 13:58) nitrofurantoin macrocrystal [From Macrobid] Adverse Reaction (Verified 03/04/17 13:58) ondansetron [From Zofran (as hydrochloride)] Adverse Reaction (Verified 13:58) ondansetron HCl [From Zofran] Adverse Reaction (Verified 03/04/17 13:58) Penicillins Adverse Reaction (Verified 03/04/17 13:58) phenytoin sodium [From Dilantin] Adverse Reaction (Verified 03/04/17 13:58) phenytoin sodium extended [From Dilantin] Adverse Reaction (Verified 03/04/17 13 :58) prednisone Adverse Reaction (Verified 03/04/17 13:58) Sulfa (Sulfonamide Antibiotics) Adverse Reaction (Verified 03/04/17 13:58) tramadol HCl [From Ultram] Adverse Reaction (Verified 03/04/17 13:58) trimethoprim [From Bactrim] Adverse Reaction (Verified 03/04/17 13:58) paper tape Adverse Reaction (Uncoded 12/19/16 20:13) Home Medications: Ambulatory Orders Tiotropium [place] [Spiriva] 1 cap IH DAILY 01/24/13 Topiramate [Topamax] 50 mg PO QID 01/24/13 Aspirin [Aspirin EC] 81 mg PO DAILY 11/03/13 Pantoprazole Sodium [Protonix] 40 mg PO BID 06/10/14 Insulin Lispro [Humalog] 22 unit SUBCUT BEDTIME 07/22/14 Lovastatin [Mevacor] 40 mg PO BEDTIME 05/16/15 Furosemide [Lasix Tab] 80 mg PO TUTHSA 01/03/16 Multivitamin [One Daily Multivitamin] 1 each PO DAILY 01/03/16 Fluticasone Propionate [Flonase] 1 spray NS BID PRN 04/15/16 Insulin Lispro [Humalog] 15 unit SUBCUT DAILY 08/22/16 Cetirizine HCl [Zyrtec] 10 mg PO DAILY 11/23/16 Budesonide/Formoterol Fumarate [Symbicort 160-4.5 Mcg Inhaler] 2 puff IH BID Hydrocodone/Acetaminophen [[place] 7.5-325 Tablet] 1 each PO Q6HR PRN 12/19/16 Disposition Discussed With: Patient
== END 2017-03-04 16:36 | disposition home or self-care (01) ==
LOC: ED 13:49
DX: J44.9 Chronic obstructive pulmonary disease, unspecified (principal); E78.5 Hyperlipidemia, unspecified; E11.9 Type 2 diabetes mellitus without complications; I10 Essential (primary) hypertension; F17.210 Nicotine dependence, cigarettes, uncomplicated; Z79.899 Other long term (current) drug therapy
CPT/HCPCS: 36415; 80053; 82550; 82803; 84484; 85025; 93005; 93010; 94640; 99283

== ENCOUNTER 2017-04-30 18:04 | Emergency (ER) ==
[2017-04-30 18:08] VITALS: TEMP 97.9; BMI 26.6
[2017-04-30 18:19] VITALS: BP 86/52
[2017-04-30] MEDS ORDERED: TORADOL IM STA (18:25)
--- NOTE | 2017-04-30 18:27 | ED.PDOC ---
General Stated Complaint: Hurting in the left shoulder, had dislocation in past which was adjusted, has f/u with Ortho. Time Seen by Physician: 18:25 Mode of Arrival: Walk-In Information Source: Patient Nursing and Triage Documentation Reviewed and Agree: Yes <OGJUVENCIOSERGIO Schmitt - Last Filed: 04/30/17 18:29> <SUNITA WATKINS - Last Filed: 04/30/17 21:48> ED Provider: Dr. SUNITA WATKINS Chief Complaint: Shoulder Pain/Injury Primary Care Provider: FLAKITA MCALLISTER Musculoskeletal Complaint Exam - Shoulder Pain Complaint/Exam Mechanism of Injury: Reports: No known trauma Symptoms Are: Still present Timing: Constant Initial Severity: Moderate Current Severity: Moderate Location: Reports: Discrete Character: Reports: Aching, Throbbing Alleviating: Reports: None Aggravating: Reports: Movement, Lifting Associated Signs and Symptoms: Denies: Swelling, Redness, Bruising, Fever, Weakness, Numbness, Tingling Related History: Reports: Similar episode Non-Orthopedic Risk Factors: Reports: None DVT Risk Factors: Reports: None Septic Arthritis Risk Factors: Reports: None Related Surgical History: Reports: None Differential Diagnoses: Closed Fracture, Sprain <SERGIO COSTA - Last Filed: 04/30/17 18:29> Review of Systems - Review Of Systems Constitutional: Reports: No symptoms Eyes: Reports: No symptoms Ears, Nose, Mouth, Throat: Reports: No symptoms Respiratory: Reports: No symptoms Cardiac: Reports: No symptoms GI: Reports: No symptoms : Reports: No symptoms Musculoskeletal: Reports: Joint pain, Muscle pain Skin: Reports: No symptoms Neurological: Reports: No symptoms Endocrine: Reports: No symptoms Hematologic/Lymphatic: Reports: No symptoms All Other Systems: Reviewed and Negative <SERGIO COSTA - Last Filed: 04/30/17 18:29> Past Medical History - Past Medical History Previously Healthy: No Endocrine: Reports: DM 2, Dyslipidemia Cardiovascular: Reports: CAD, [place], Hypertension, CHF, A-Fib Respiratory: Reports: COPD, Asthma Hematological: Reports: Unknown Gastrointestinal: Reports: GERD, Diverticulitis, Other Genitourinary: Reports: Kidney stones, Other Neuro/Psych: Reports: Migraine, Seizure, Anxiety, Depression, Bipolar Disorder, Schizophrenia Musculoskeletal: Reports: Arthritis, Back Pain Cancer: Reports: Breast Last Menstrual Period: n/a Other Pertinent Past Medical History: IBS, PARANOID SCHIZOPHRENIA,ENDOMETRIOSIS - Surgical History General Surgical History: Reports: Hysterectomy, Tubal ligation, Cholecystectomy , Tonsillectomy, Orthopedic, Hernia Repair, Other - Family History Family History: Reports: Unknown - Social History Smoking Status: Current every day smoker, Heavy tobacco smoker Smoking Cessation Counseling Time: > 10 min Hx Substance Use: No Alcohol Screening: None <SERGIO COSTA - Last Filed: 04/30/17 18:29> Physical Exam - Physical Exam Appearance: Ill-appearing Pain Distress: Moderate Eyes: HANH, EOMI, Conjunctiva clear ENT: Ears normal, Nose normal, Oropharynx normal Respiratory: Airway patent, Breath sounds clear, Breath sounds equal, Respirations nonlabored Cardiovascular: RRR, Pulses normal, No rub, No murmur GI/: Soft, Nontender, No masses, Bowel sounds normal, No Organomegaly Musculoskeletal: Limited ROM, Limited strength Skin: Warm, Dry, Normal color Neurological: Sensation intact, Motor intact, Reflexes intact, Cranial nerves intact, Alert, Oriented Psychiatric: Affect appropriate, Mood appropriate <SERGIO COSTA - Last Filed: 04/30/17 18:29> Interpretation - Radiology Interpretation Radiology Interpretation By: ED Physician Radiology Results: Negative Exam Interpreted: Other (Shoulder pain ) - EKG Interpretation Time of EKG #1: 20:10 Rate: Tachy Rhythm: Sinus Ectopy: None [place]: [place] Interpretation: Age undetermined Septal Infact <SUNITA WATKINS - Last Filed: 04/30/17 21:48> Critical Care Note - Critical Care Note Total Time (mins): 0 <SERGIO COSTA - Last Filed: 04/30/17 18:29> - Course Orders, Labs, Meds: Orders Category Date Time Status EKG-(ED ONLY) Stat CARDIO 04/30/17 20:09 Completed Ketorolac Tromethamine [Toradol] MEDS 04/30/17 18:25 Discontinued 60 mg IM ONCE STA SHOULDER, LEFT MIN 2V Stat RADS 04/30/17 18:25 Taken Medications Discontinued Medications Generic Name Dose Route Start Last Admin Trade Name Freq PRN Reason Stop Dose Admin Ketorolac Tromethamine 60 mg 04/30/17 18:25 04/30/17 18:41 Toradol IM 04/30/17 18:26 Not Given ONCE STA Vital Signs: Temp Pulse Resp BP Pulse Ox 04/30/17 18:05 97.9 F 109 H 20 86/52 L 97 Departure - Departure Time of Disposition: 18:29 Pt referred to PMD for follow-up: Yes Disposition Discussed With: Patient, Family <SERGIO COSTA - Last Filed: 04/30/17 18:29> <SUNITA WATKINS - Last Filed: 04/30/17 21:48> - Departure Disposition: HOME SELF-CARE Discharge Problem: Shoulder pain Qualifiers: Chronicity: acute Laterality: left Qualified Code(s): M25.512 - Pain in left shoulder Instructions: Shoulder Sprain (ED) Condition: Good Additional Instructions: decrease Lasix to 40 mg everyother day NOT 80 MG keep f/u with PMD Allergies/Adverse Reactions: Allergies azithromycin [From Zithromax] Adverse Reaction (Verified 03/04/17 13:58) carbamazepine [From Tegretol] Adverse Reaction (Verified 03/04/17 13:58) chlorpromazine HCl [From Thorazine] Adverse Reaction (Verified 03/04/17 13:58) cyclobenzaprine [From Flexeril] Adverse Reaction (Verified 03/04/17 13:58) dexamethasone [From Decadron] Adverse Reaction (Verified 03/04/17 13:58) dexamethasone sod phosphate [From Decadron] Adverse Reaction (Verified 03/04/17 13:58) dextromethorphan HBr [From Vicks Nature Fusion Cough] Adverse Reaction ( Verified 03/04/17 13:58) hydromorphone [From Dilaudid] Adverse Reaction (Verified 03/04/17 13:58) hydroxyzine HCl [From Vistaril] Adverse Reaction (Verified 03/04/17 13:58) hydroxyzine pamoate [From Vistaril] Adverse Reaction (Verified 03/04/17 13:58) insulin detemir [From Levemir] Adverse Reaction (Verified 03/04/17 13:58) insulin glargine,hum.rec.anlog [From Lantus] Adverse Reaction (Verified 13:58) Iodinated Contrast- Oral and IV Dye Adverse Reaction (Verified 03/04/17 13:58) lorazepam [From Ativan] Adverse Reaction (Verified 03/04/17 13:58) meperidine [From Demerol] Adverse Reaction (Verified 03/04/17 13:58) metformin Adverse Reaction (Verified 03/04/17 13:58) methylprednisolone [From Medrol] Adverse Reaction (Verified 03/04/17 13:58) nitrofurantoin [From Macrobid] Adverse Reaction (Verified 03/04/17 13:58) nitrofurantoin macrocrystal [From Macrobid] Adverse Reaction (Verified 03/04/17 13:58) ondansetron [From Zofran (as hydrochloride)] Adverse Reaction (Verified 13:58) ondansetron HCl [From Zofran] Adverse Reaction (Verified 03/04/17 13:58) Penicillins Adverse Reaction (Verified 03/04/17 13:58) phenytoin sodium [From Dilantin] Adverse Reaction (Verified 03/04/17 13:58) phenytoin sodium extended [From Dilantin] Adverse Reaction (Verified 03/04/17 13 :58) prednisone Adverse Reaction (Verified 03/04/17 13:58) Sulfa (Sulfonamide Antibiotics) Adverse Reaction (Verified 03/04/17 13:58) tramadol HCl [From Ultram] Adverse Reaction (Verified 03/04/17 13:58) trimethoprim [From Bactrim] Adverse Reaction (Verified 03/04/17 13:58) paper tape Adverse Reaction (Uncoded 12/19/16 20:13) Home Medications: Ambulatory Orders Tiotropium [place] [Spiriva] 1 cap IH DAILY 01/24/13 Topiramate [Topamax] 50 mg PO QID 01/24/13 Aspirin [Aspirin EC] 81 mg PO DAILY 11/03/13 Pantoprazole Sodium [Protonix] 40 mg PO BID 06/10/14 Insulin Lispro [Humalog] 10 unit SUBCUT TID 07/22/14 Lovastatin [Mevacor] 40 mg PO BEDTIME 05/16/15 Furosemide [Lasix Tab] 80 mg PO TUTHSA 01/03/16 Multivitamin [One Daily Multivitamin] 1 each PO DAILY 01/03/16 Fluticasone Propionate [Flonase] 1 spray NS BID PRN 04/15/16 Cetirizine HCl [Zyrtec] 10 mg PO DAILY 11/23/16 Budesonide/Formoterol Fumarate [Symbicort 160-4.5 Mcg Inhaler] 2 puff IH BID Hydrocodone/Acetaminophen [[place] 7.5-325 Tablet] 1 each PO Q6HR PRN 12/19/16 Insulin NPH Human Isophane [Humulin N Kwikpen] 10 unit SQ BEDTIME 04/30/17
--- NOTE | 2017-05-01 06:44 | DI ---
EXAM: Three views of the left shoulder HISTORY: Left shoulder pain. COMPARISON: Left shoulder x-rays 04/19/2016 FINDINGS: There is no cortical irregularity or displaced fracture of the left shoulder. There is no lytic or blastic lesion. Glenohumeral joint and acromioclavicular joint are intact. The adjacent so ft tissues and osseous structures are normal. IMPRESSION: No acute abnormality or displaced fracture of the left shoulder.
== END 2017-04-30 20:45 | disposition home or self-care (01) ==
LOC: ED 18:04
DX: M25.512 Pain in left shoulder (principal); E11.9 Type 2 diabetes mellitus without complications; E78.5 Hyperlipidemia, unspecified; I25.10 Atherosclerotic heart disease of native coronary artery without angina pectoris; I10 Essential (primary) hypertension; I25.2 Old myocardial infarction; F17.210 Nicotine dependence, cigarettes, uncomplicated; Z79.899 Other long term (current) drug therapy
CPT/HCPCS: 93005; 93010; 99282

== ENCOUNTER 2017-06-05 15:56 | Emergency (ER) ==
[2017-06-05 16:19] VITALS: BP 99/72; TEMP 97.5; BMI 28.0
--- NOTE | 2017-06-05 16:39 | ED.PDOC ---
General ED Provider: Dr. THERESE REYNOLDS-ER Chief Complaint: Shoulder Pain/Injury Stated Complaint: im supposed to have shoulder surgery--rotator cuff--it hursts to move arm at the shoulder Time Seen by Physician: 16:10 Mode of Arrival: Walk-In Information Source: Patient Exam Limitations: No limitations Primary Care Provider: FLAKITA MCALLISTER Nursing and Triage Documentation Reviewed and Agree: Yes Musculoskeletal Complaint Exam - Shoulder Pain Complaint/Exam Mechanism of Injury: Reports: No known trauma Onset/Duration: one year Symptoms Are: Still present Timing: Constant Initial Severity: Mild Current Severity: Mild Location: Reports: Discrete (left shoulder) Character: Reports: Dull, Aching, Stiffness Aggravating: Reports: Movement, Lifting, Flexion, Extension, Internal rotation, External rotation, Abduction Associated Signs and Symptoms: Denies: Swelling, Redness, Bruising, Fever, Weakness, Numbness, Tingling DVT Risk Factors: Reports: None Septic Arthritis Risk Factors: Reports: None Related Surgical History: Reports: None Tenderness: Present: Proximal humerus, Rotator cuff muscles Limited Range of Motion: Present: Abduction, Flexion, Extension Differential Diagnoses: Rotator Cuff Injury Review of Systems - Review Of Systems Constitutional: Reports: No symptoms Eyes: Reports: No symptoms Ears, Nose, Mouth, Throat: Reports: No symptoms Respiratory: Reports: No symptoms Cardiac: Reports: No symptoms GI: Reports: No symptoms : Reports: No symptoms Musculoskeletal: Reports: Joint pain, Muscle pain Skin: Reports: No symptoms Neurological: Reports: Cognitive dysfunction Endocrine: Reports: No symptoms Hematologic/Lymphatic: Reports: No symptoms All Other Systems: Reviewed and Negative Past Medical History - Past Medical History Previously Healthy: No Endocrine: Reports: DM 2, Dyslipidemia Cardiovascular: Reports: CAD, [place], Hypertension, CHF, A-Fib Respiratory: Reports: COPD, Asthma Hematological: Reports: Unknown Gastrointestinal: Reports: GERD, Diverticulitis, Other Genitourinary: Reports: Kidney stones, Other Neuro/Psych: Reports: Migraine, Seizure, Anxiety, Depression, Bipolar Disorder, Schizophrenia Musculoskeletal: Reports: Arthritis, Back Pain Cancer: Reports: Breast Last Menstrual Period: N/A Other Pertinent Past Medical History: IBS, PARANOID SCHIZOPHRENIA,ENDOMETRIOSIS - Surgical History General Surgical History: Reports: Hysterectomy, Tubal ligation, Cholecystectomy , Tonsillectomy, Orthopedic, Hernia Repair, Other - Family History Family History: Reports: Unknown - Social History Smoking Status: Current every day smoker, Heavy tobacco smoker Hx Substance Use: No Alcohol Screening: None Lives: With family - Immunizations Tetanus Shot up to Date: No Physical Exam - Physical Exam Appearance: Well-appearing, No pain distress, Well-nourished Pain Distress: Mild Eyes: HANH, EOMI, Conjunctiva clear ENT: Ears normal, Nose normal, Oropharynx normal Neck: Supple Respiratory: Airway patent, Breath sounds clear, Breath sounds equal, Respirations nonlabored Cardiovascular: RRR, Pulses normal, No rub, No murmur GI/: Soft, Nontender, No masses, Bowel sounds normal, No Organomegaly Musculoskeletal: Normal strength, No edema, Limited ROM Skin: Warm, Dry, Normal color Neurological: Sensation intact Psychiatric: Affect appropriate, Mood appropriate Interpretation - Radiology Interpretation Radiology Interpretation By: ED Physician Radiology Results: Negative Critical Care Note - Critical Care Note Total Time (mins): 0 Course - Course Orders, Labs, Meds: Orders Category Date Time Status SHOULDER, LEFT MIN 2V Stat RADS 06/05/17 16:22 Taken Vital Signs: Temp Pulse Resp BP Pulse Ox 06/05/17 16:06 97.5 F L 111 H 20 99/72 95 Departure - Departure Time of Disposition: 16:39 Disposition: HOME SELF-CARE Discharge Problem: Shoulder pain Instructions: Tendinitis (ED), Rotator Cuff Injury (ED), Rotator Cuff Tendinitis (ED) Condition: Fair Pt referred to PMD for follow-up: No Additional Instructions: norco 7.5mg q 6hrs prn pain#10--f/u with pcp Allergies/Adverse Reactions: Allergies azithromycin [From Zithromax] Adverse Reaction (Verified 03/04/17 13:58) carbamazepine [From Tegretol] Adverse Reaction (Verified 03/04/17 13:58) chlorpromazine HCl [From Thorazine] Adverse Reaction (Verified 03/04/17 13:58) cyclobenzaprine [From Flexeril] Adverse Reaction (Verified 03/04/17 13:58) dexamethasone [From Decadron] Adverse Reaction (Verified 03/04/17 13:58) dexamethasone sod phosphate [From Decadron] Adverse Reaction (Verified 03/04/17 13:58) dextromethorphan HBr [From Vicks Nature Fusion Cough] Adverse Reaction ( Verified 03/04/17 13:58) hydromorphone [From Dilaudid] Adverse Reaction (Verified 03/04/17 13:58) hydroxyzine HCl [From Vistaril] Adverse Reaction (Verified 03/04/17 13:58) hydroxyzine pamoate [From Vistaril] Adverse Reaction (Verified 03/04/17 13:58) insulin detemir [From Levemir] Adverse Reaction (Verified 03/04/17 13:58) insulin glargine,hum.rec.anlog [From Lantus] Adverse Reaction (Verified 13:58) Iodinated Contrast- Oral and IV Dye Adverse Reaction (Verified 03/04/17 13:58) lorazepam [From Ativan] Adverse Reaction (Verified 03/04/17 13:58) meperidine [From Demerol] Adverse Reaction (Verified 03/04/17 13:58) metformin Adverse Reaction (Verified 03/04/17 13:58) methylprednisolone [From Medrol] Adverse Reaction (Verified 03/04/17 13:58) nitrofurantoin [From Macrobid] Adverse Reaction (Verified 03/04/17 13:58) nitrofurantoin macrocrystal [From Macrobid] Adverse Reaction (Verified 03/04/17 13:58) ondansetron [From Zofran (as hydrochloride)] Adverse Reaction (Verified 13:58) ondansetron HCl [From Zofran] Adverse Reaction (Verified 03/04/17 13:58) Penicillins Adverse Reaction (Verified 03/04/17 13:58) phenytoin sodium [From Dilantin] Adverse Reaction (Verified 03/04/17 13:58) phenytoin sodium extended [From Dilantin] Adverse Reaction (Verified 03/04/17 13 :58) prednisone Adverse Reaction (Verified 03/04/17 13:58) Sulfa (Sulfonamide Antibiotics) Adverse Reaction (Verified 03/04/17 13:58) tramadol HCl [From Ultram] Adverse Reaction (Verified 03/04/17 13:58) trimethoprim [From Bactrim] Adverse Reaction (Verified 03/04/17 13:58) paper tape Adverse Reaction (Uncoded 12/19/16 20:13) Home Medications: Ambulatory Orders Tiotropium [place] [Spiriva] 1 cap IH DAILY 01/24/13 Topiramate [Topamax] 50 mg PO QID 01/24/13 Aspirin [Aspirin EC] 81 mg PO DAILY 11/03/13 Pantoprazole Sodium [Protonix] 40 mg PO BID 06/10/14 Insulin Lispro [Humalog] 10 unit SUBCUT TID 07/22/14 Lovastatin [Mevacor] 40 mg PO BEDTIME 05/16/15 Furosemide [Lasix Tab] 80 mg PO TUTHSA 01/03/16 Multivitamin [One Daily Multivitamin] 1 each PO DAILY 01/03/16 Fluticasone Propionate [Flonase] 1 spray NS BID PRN 04/15/16 Cetirizine HCl [Zyrtec] 10 mg PO DAILY 11/23/16 Budesonide/Formoterol Fumarate [Symbicort 160-4.5 Mcg Inhaler] 2 puff IH BID Hydrocodone/Acetaminophen [[place] 7.5-325 Tablet] 1 each PO Q6HR PRN 12/19/16 Insulin NPH Human Isophane [Humulin N Kwikpen] 10 unit SQ BEDTIME 04/30/17 Cyclobenzaprine HCl [Flexeril] 10 mg PO TID 06/05/17 Disposition Discussed With: Patient, Family
--- NOTE | 2017-06-05 16:43 | DI ---
EXAM: Three views of the left shoulder. History: Left shoulder pain. Comparison: Left shoulder radiograph 04/30/2017 Findings: No acute fracture or dislocation. No abnormal calcifications or radiopaque foreign bodies . Mild sclerosis seen involving the superior lateral aspect of the humeral head. Joint spaces are r elatively preserved. Impression: 1. No acute osseous abnormality. 2. Possible rotator cuff disease.
== END 2017-06-05 16:43 | disposition home or self-care (01) ==
LOC: ED 15:56
DX: M25.512 Pain in left shoulder (principal); F17.210 Nicotine dependence, cigarettes, uncomplicated
CPT/HCPCS: 99282

== ENCOUNTER 2017-07-09 15:13 | Emergency (ER) ==
[2017-07-09 15:20] VITALS: BP 85/66; TEMP 97.1; BMI 25.2
[2017-07-09] MEDS ORDERED: SODIUM CHLORIDE 1,000 ML IV STA (15:54)
--- NOTE | 2017-07-09 15:59 | ED.PDOC ---
General ED Provider: Dr. SUNITA WATKINS Chief Complaint: Respiratory Complaint Stated Complaint: Patient is a 51 year old female who comes to the ER with cough conjestion and sinus pain for the past 3 days. She states that she has slowed down on her smoking. Cough is productive of Greenish sputum. Time Seen by Physician: 15:45 Mode of Arrival: Walk-In Information Source: Patient Exam Limitations: No limitations Primary Care Provider: FLAKITA MCALLISTER Nursing and Triage Documentation Reviewed and Agree: Yes Respiratory Complaint Exam - Shortness of Air Complaint/Exam Onset/Duration: 3 days Symptoms Are: Still present Timing: Constant Initial Severity: Severe Current Severity: Moderate Character: Reports: Dyspnea at rest Aggravating: Reports: URI, Smoke exposure, Weather Associated Signs and Symptoms: Reports: Cough. Denies: Wheezing, Chest pain with cough, Chest pain, Fever, Chills, Diaphoresis, Nasal congestion, Dizziness , Calf pain, Calf swelling, Edema, Rapid breathing, Labored breathing, Decreased intake History of Healthcare-Acquired Pneumonia: No Pulmonary Embolism Risk Factors: Reports: None Cardiac Risk Factors: Reports: None Pseudomonas Risk Factors: Reports: Chronic Lung Disease Tuberculosis Risk Factors: Reports: None Home Oxygen Use: No Review of Systems - Review Of Systems Constitutional: Reports: No symptoms Eyes: Reports: No symptoms Ears, Nose, Mouth, Throat: Reports: No symptoms Respiratory: Reports: Cough, Short of air Cardiac: Reports: No symptoms GI: Reports: No symptoms : Reports: No symptoms Musculoskeletal: Reports: No symptoms Skin: Reports: No symptoms Neurological: Reports: Headache, Other (sinus paion ) Endocrine: Reports: No symptoms Hematologic/Lymphatic: Reports: No symptoms All Other Systems: Reviewed and Negative Past Medical History - Past Medical History Previously Healthy: No Endocrine: Reports: DM 2, Dyslipidemia Cardiovascular: Reports: CAD, [place], Hypertension, CHF, A-Fib Respiratory: Reports: COPD, Asthma Hematological: Reports: Unknown Gastrointestinal: Reports: GERD, Diverticulitis, Other Genitourinary: Reports: Kidney stones, Other Neuro/Psych: Reports: Migraine, Seizure, Anxiety, Depression, Bipolar Disorder, Schizophrenia Musculoskeletal: Reports: Arthritis, Back Pain Cancer: Reports: Breast Last Menstrual Period: N/A Other Pertinent Past Medical History: IBS, PARANOID SCHIZOPHRENIA,ENDOMETRIOSIS - Surgical History General Surgical History: Reports: Hysterectomy, Tubal ligation, Cholecystectomy , Tonsillectomy, Orthopedic, Hernia Repair, Other - Family History Family History: Reports: Unknown - Social History Smoking Status: Current every day smoker, Heavy tobacco smoker Hx Substance Use: No Alcohol Screening: None - Immunizations Tetanus Shot up to Date: Yes Physical Exam - Physical Exam Appearance: Ill-appearing Ill-appearing: Mild Pain Distress: Moderate Eyes: HANH, EOMI, Conjunctiva clear ENT: Ears normal, Nose normal, Oropharynx normal Neck: Supple Respiratory: Breath sounds diminished Cardiovascular: Tachycardia, Murmur GI/: Soft, Nontender, No masses, Bowel sounds normal, No Organomegaly Musculoskeletal: Normal strength, ROM intact, No edema, No calf tenderness Skin: Warm, Dry Neurological: Sensation intact, Motor intact, Alert, Oriented Psychiatric: Anxious Interpretation - Radiology Interpretation Radiology Interpretation By: Radiologist Radiology Results: Negative Exam Interpreted: CXR Critical Care Note - Critical Care Note Total Time (mins): 0 Course - Course Hematology/Chemistry: 07/09/17 16:00 07/09/17 16:00 Orders, Labs, Meds: Lab Review 07/09/17 07/09/17 07/09/17 16:00 16:00 16:00 WBC 6.95 RBC 4.26 Hgb 13.1 Hct 36.1 L MCV 84.7 MCH 30.8 MCHC 36.3 H RDW Coeff of Yanet 12.2 Plt Count 162 Immature Gran % (Auto) 0.9 Neut % (Auto) 43.4 Lymph % (Auto) 46.5 [place] % (Auto) 7.5 Eos % (Auto) 1.0 Baso % (Auto) 0.7 Immature Gran # (Auto) 0.1 Neut # 3.0 Lymph # 3.2 [place] # 0.5 Eos # 0.1 Baso # 0.1 Sodium 131 L Potassium 4.0 Chloride 91 L Carbon Dioxide 28 Anion Gap 16.0 BUN 16 Creatinine 1.08 Estimated GFR (MDRD) 53.00 BUN/Creatinine Ratio 14.81 Glucose 453 H Hemoglobin A1c 10.9 H D Calcium 9.5 Total Bilirubin 0.30 AST 8 L ALT 8 L Alkaline Phosphatase 127 H Total Protein 6.7 Albumin 3.3 L Globulin 3.4 Albumin/Globulin Ratio 0.97 Influenza A (Rapid) Influenza B (Rapid) 07/09/17 17:13 WBC RBC Hgb Hct MCV MCH MCHC RDW Coeff of Yanet Plt Count Immature Gran % (Auto) Neut % (Auto) Lymph % (Auto) [place] % (Auto) Eos % (Auto) Baso % (Auto) Immature Gran # (Auto) Neut # Lymph # [place] # Eos # Baso # Sodium Potassium Chloride Carbon Dioxide Anion Gap BUN Creatinine Estimated GFR (MDRD) BUN/Creatinine Ratio Glucose Hemoglobin A1c Calcium Total Bilirubin AST ALT Alkaline Phosphatase Total Protein Albumin Globulin Albumin/Globulin Ratio Influenza A (Rapid) Negative Influenza B (Rapid) Negative Orders Category Date Time Status ED IV/MEDIPORT/POWERPORT .ONCE EMERGENCY 07/09/17 15:53 Active CBC W/ AUTO DIFF Stat LAB 07/09/17 16:00 Completed COMPREHENSIVE METABOLIC PANEL Stat LAB 07/09/17 16:00 Completed FLU A & B RAPID TEST [RAPID FLU A/B] Stat LAB 07/09/17 17:13 Completed HEMOGLOBIN A1C Stat LAB 07/09/17 16:00 Completed MOLECULAR GROUP A STREP Stat LAB 07/09/17 17:13 Results STREP SCREEN Stat LAB 07/09/17 17:13 Results 0.9 % Sodium Chloride [Saline Flush] MEDS 07/09/17 15:54 Discontinued 1 syr IVF PRN PRN Sodium Chloride 0.9% [Sodium Chloride] 1,000 ml MEDS 07/09/17 15:54 Discontinued IV BOLUS CHEST, 2 VIEWS PA & LAT Stat RADS 07/09/17 15:56 Completed Medications Discontinued Medications Generic Name Dose Route Start Last Admin Trade Name Freq PRN Reason Stop Dose Admin Sodium Chloride 1,000 mls @ 1,000 mls/hr 07/09/17 15:54 07/09/17 16:42 Sodium Chloride IV 07/09/17 16:53 1,000 mls/hr BOLUS STA Administration Sodium Chloride 1 syr 07/09/17 15:54 07/09/17 16:42 Saline Flush IVF 1 syr PRN PRN Administration To flush IV Vital Signs: Temp Pulse Resp BP Pulse Ox 07/09/17 15:14 97.1 F L 114 H 20 85/66 L 96 Departure - Departure Time of Disposition: 17:37 Disposition: HOME SELF-CARE Discharge Problem: Sinusitis Qualifiers: Sinusitis location: maxillary Chronicity: acute Recurrence: non-recurrent Qualified Code(s): J01.00 - Acute maxillary sinusitis, unspecified Instructions: Sinusitis (ED) Condition: Stable Pt referred to PMD for follow-up: Yes Additional Instructions: STOP SMOKING follow up with pcp in 3 days Take over the counter sinus medications that you are not allergic to Take pain medication as needed. Follow a diabetic diet. Prescriptions: Azithromycin [Zithromax] 250 mg PO DIRECTED #6 tablet Allergies/Adverse Reactions: Allergies carbamazepine [From Tegretol] Adverse Reaction (Verified 07/09/17 15:21) chlorpromazine HCl [From Thorazine] Adverse Reaction (Verified 07/09/17 15:21) cyclobenzaprine [From Flexeril] Adverse Reaction (Verified 07/09/17 15:21) dexamethasone [From Decadron] Adverse Reaction (Verified 07/09/17 15:21) dexamethasone sod phosphate [From Decadron] Adverse Reaction (Verified 07/09/17 15:21) dextromethorphan HBr [From Vicks Nature Fusion Cough] Adverse Reaction ( Verified 07/09/17 15:21) hydromorphone [From Dilaudid] Adverse Reaction (Verified 07/09/17 15:21) hydroxyzine HCl [From Vistaril] Adverse Reaction (Verified 07/09/17 15:21) hydroxyzine pamoate [From Vistaril] Adverse Reaction (Verified 07/09/17 15:21) insulin detemir [From Levemir] Adverse Reaction (Verified 07/09/17 15:21) insulin glargine,hum.rec.anlog [From Lantus] Adverse Reaction (Verified 15:21) Iodinated Contrast- Oral and IV Dye Adverse Reaction (Verified 07/09/17 15:21) lorazepam [From Ativan] Adverse Reaction (Verified 07/09/17 15:21) meperidine [From Demerol] Adverse Reaction (Verified 07/09/17 15:21) metformin Adverse Reaction (Verified 07/09/17 15:21) methylprednisolone [From Medrol] Adverse Reaction (Verified 07/09/17 15:21) nitrofurantoin [From Macrobid] Adverse Reaction (Verified 07/09/17 15:21) nitrofurantoin macrocrystal [From Macrobid] Adverse Reaction (Verified 07/09/17 15:21) ondansetron [From Zofran (as hydrochloride)] Adverse Reaction (Verified 15:21) ondansetron HCl [From Zofran] Adverse Reaction (Verified 07/09/17 15:21) Penicillins Adverse Reaction (Verified 07/09/17 15:21) phenytoin sodium [From Dilantin] Adverse Reaction (Verified 07/09/17 15:21) phenytoin sodium extended [From Dilantin] Adverse Reaction (Verified 07/09/17 15 :21) prednisone Adverse Reaction (Verified 07/09/17 15:21) Sulfa (Sulfonamide Antibiotics) Adverse Reaction (Verified 07/09/17 15:21) tramadol HCl [From Ultram] Adverse Reaction (Verified 07/09/17 15:21) trimethoprim [From Bactrim] Adverse Reaction (Verified 07/09/17 15:21) paper tape Adverse Reaction (Uncoded 07/09/17 15:21) Home Medications: Ambulatory Orders Tiotropium [place] [Spiriva] 1 cap IH DAILY 01/24/13 Topiramate [Topamax] 50 mg PO QID 01/24/13 Aspirin [Aspirin EC] 81 mg PO DAILY 11/03/13 Pantoprazole Sodium [Protonix] 40 mg PO BID 06/10/14 Insulin Lispro [Humalog] 10 unit SUBCUT TID 07/22/14 Lovastatin [Mevacor] 40 mg PO BEDTIME 05/16/15 Furosemide [Lasix Tab] 80 mg PO TUTHSA 01/03/16 Multivitamin [One Daily Multivitamin] 1 each PO DAILY 01/03/16 Fluticasone Propionate [Flonase] 1 spray NS BID PRN 04/15/16 Cetirizine HCl [Zyrtec] 10 mg PO DAILY 11/23/16 Budesonide/Formoterol Fumarate [Symbicort 160-4.5 Mcg Inhaler] 2 puff IH BID Hydrocodone/Acetaminophen [[place] 7.5-325 Tablet] 1 each PO Q6HR PRN 12/19/16 Insulin NPH Human Isophane [Humulin N Kwikpen] 10 unit SQ BEDTIME 04/30/17 Cyclobenzaprine HCl [Flexeril] 10 mg PO TID 06/05/17 Azithromycin [Zithromax] 250 mg PO DIRECTED #6 tablet 07/09/17 Disposition Discussed With: Patient, Family
[2017-07-09 16:09] LABS: BASOPHILS # (AUTO) 0.1 K/uL (0-0.2); BASOPHILS % (AUTO) 0.7 % (0.0-3.0); EOSINOPHILS # (AUTO) 0.1 K/ul (0.0-0.7); HEMATOCRIT 36.1 % (37.0-47.0); HEMOGLOBIN 13.1 g/dl (12.0-16.0); IMMATURE GRANULOCYTE % (AUTO) 0.9 % (0.0-5.0); LYMPHOCYTES # (AUTO) 3.2 K/uL (0.60-3.4); LYMPHOCYTES % (AUTO) 46.5 (10.0-50.0); MEAN CORPUSCULAR HEMOGLOBIN 30.8 pg (27.0-31.0); MEAN CORPUSCULAR HGB CONC 36.3 (31.8-35.4); MEAN CORPUSCULAR VOLUME 84.7 fl (81.0-99.0); MONOCYTES # (AUTO) 0.5 K/uL (0.4-2.0); MONOCYTES % (AUTO) 7.5 (0-10); NEUTROPHILS % (AUTO) 43.4; PLATELET COUNT 162 10^3/uL (140-440); RED BLOOD COUNT 4.26 10^6/ul (4.20-5.40); WHITE BLOOD COUNT 6.95 K/ul (4.6-10.2)
--- NOTE | 2017-07-09 16:22 | DI ---
EXAM: PA and lateral views of the chest HISTORY: Cough COMPARISON: Chest Xray from 08/19/[address] from 06/01/2017 FINDINGS: There is interval enlargement of the cardiac silhouette. The pericardial effusion was note d on the chest CT. There is a calcified granuloma in the right mid lung. There is no lobar infiltra te failure or large effusion. There has been prior cholecystectomy. No acute osseous or soft tissue abnormalities. IMPRESSION: 1. Clear lungs with no infiltrate or large pleural effusion. 2. Enlargement of the cardiac silhouette due to pericardial effusion.
[2017-07-09 16:27] LABS: ALBUMIN 3.3 g/dL (3.4-5.0); ALBUMIN/GLOBULIN RATIO 0.97; BILIRUBIN,TOTAL 0.3 mg/dL (0.00-1.20); BUN/CREATININE RATIO 14.81; CALCIUM 9.5 mg/dL (8.2-10.2); CREATININE 1.08 mg/dL (0.60-1.30); TOTAL PROTEIN 6.7 g/dL (6.4-8.2)
[2017-07-09 17:30] LABS: FLU INTERNAL QC INTERNAL QC VALID; RAPID FLU A NEGATIVE (NEGATIVE)
[2017-07-09 17:31] LABS: RAPID FLU B NEGATIVE (NEGATIVE)
== END 2017-07-09 18:41 | disposition home or self-care (01) ==
LOC: ED 15:13
DX: J01.00 Acute maxillary sinusitis, unspecified (principal); E11.9 Type 2 diabetes mellitus without complications; I25.2 Old myocardial infarction; F17.210 Nicotine dependence, cigarettes, uncomplicated; Z79.899 Other long term (current) drug therapy
CPT/HCPCS: 36415; 80053; 83036; 85025; 87651; 87804; 87880; 96360; 99284

== ENCOUNTER 2017-07-22 10:03 | Outpatient (CLI) ==
[2013-01-24 14:52] VITALS: TEMP 98.1
--- NOTE | 2017-07-22 12:11 | MAMMO ---
EXAM: Diagnostic bilateral mammogram with tomosynthesis and CAD and left breast ultrasound HISTORY: Left-sided nipple discharge. COMPARISON: None, patient reports multiple prior mammograms at other institutions. FINDINGS: In the right breast. There is a small cluster of calcifications in the right medial centra l breast 5.5 cm from the nipple with no associated soft tissue on mammogram. There is scattered fibr oglandular nodular densities throughout the remaining right breast. There are scattered benign calci fications present. The left breast demonstrates an area of calcifications on the CC view only. Spot compression views o f the left breast redemonstrate these calcifications although a focal cluster calcifications is not i dentified on the left MLO view. No retroareolar mass is identified on mammogram. Left breast ultrasound demonstrates no sonographic abnormality posterior to the left nipple to accoun t for patient discharge. IMPRESSION: 1. Left breast discharge with no discrete nodule or mass seen on mammogram or ultrasound. Calcifica tions in the left breast are nonspecific and follow-up is recommended. 2. Clustered calcifications which persist on spot compression images in the right breast may represe nt benign versus neoplastic process and short-interval follow-up is recommended. If priors can be ob tained, this would aid in evaluation for change. BIRADS category III on the left. BIRADS category III on the right. Probable benign findings. Short-term follow-up 6-month mammogram and spot compression views of calcifications in the right and left breast are recommended.
== END 2017-07-22 10:04 | disposition home or self-care (01) ==
LOC: RAD 10:03
PROVIDERS: ATTEND Family Medicine
DX: N64.3 Galactorrhea not associated with childbirth (principal)

== ENCOUNTER 2017-07-29 08:50 | Outpatient (CLI) ==
[2013-01-24 14:52] VITALS: TEMP 98.1
--- NOTE | 2017-07-29 09:26 | CT ---
EXAM: CT BRAIN HISTORY: Head contusion, fall TECHNIQUE: CT brain without intravenous contrast. 5-mm axial sections with Reformations. COMPARISON: 12/17/2000 FINDINGS: Brain is unremarkable without distinct evidence of hemorrhage or large vessel distribution recent is chemic infarction. There is no suggestion of acute hydrocephalus or subdural fluid collection. No m ass or mass effect. Cranium is within normal limits. Mastoid processes are aerated. The visualized paranasal sinuses a re clear. IMPRESSION: No acute intracranial process.
== END 2017-07-29 08:51 | disposition home or self-care (01) ==
LOC: RAD 08:50
PROVIDERS: ATTEND Physician Assistant
DX: S00.93XA Contusion of unspecified part of head, initial encounter (principal)

== ENCOUNTER 2017-08-04 18:37 | Emergency (ER) ==
[2017-08-04 18:42] VITALS: BMI 28.0
[2017-08-04] MEDS ORDERED: ZOFRAN 4 MG/2 ML IM STA (20:46)
--- NOTE | 2017-08-04 20:49 | ED.PDOC ---
General ED Provider: Dr. THERESE REYNOLDS-ER Chief Complaint: Respiratory Complaint Stated Complaint: yasmine been couging up green stuff and i coughed so hard i felt a pop in my ribs--it sounded like a 12 gauge shotgun going off Time Seen by Physician: 19:00 Mode of Arrival: Walk-In Information Source: Patient Exam Limitations: No limitations Primary Care Provider: DEIRDRE DE ANDA Nursing and Triage Documentation Reviewed and Agree: Yes Reviewed sepsis parameters & appropriate labs ordered?: Yes System Inflammatory Response Syndrome: Not Applicable Sepsis Protocol: For patient's 13 years and over: Temp is 96.8 and below OR 101 and greater Pulse >90 BPM Resp >20/minute Acutely Altered Mental Status Are patient's symptoms suggestive of a new infection, such as: -Pneumonia -Skin, Soft Tissue -Endocarditis -UTI -Bone, Joint Infection -Implantable Device -Acute Abdominal Infection -Wound Infection -Meningitis -Blood Stream Catheter Infection -Unknown Respiratory Complaint Exam - Respiratory Complaint/Exam Onset/Duration: 2 days Symptoms Are: Still present Timing: Constant Initial Severity: Mild Current Severity: Moderate Character: Reports: Productive cough Aggravating: Reports: URI Associated Signs and Symptoms: Reports: Fever, URI, Nasal congestion, Sore throat. Denies: Rapid breathing, Dyspnea, Chills, Chest pain, Pleuritic chest pain, Wheezing, Hemoptysis, Dizziness, Calf pain, Calf swelling, Edema, Hoarseness, Sinus discomfort, Vomiting, Weight loss, Decreased oral intake, Increased thirst, Increased appetite, Increased urination Related History: Reports: Similar episode History of Healthcare-Acquired Pneumonia: No Tuberculosis Risk Factors: Reports: None Status Asthmaticus Risk Factors: Reports: None Home Oxygen Use: No Recent Stress Test: No Recent Echo/LV Function: No Current Antibiotic Use: No Current Asthma Medication Use: No Respiratory Distress: None Inadequate Respiratory Effort: No Dysphagia Present: No Stridor Present: No JVD Present: No Accessory Muscle Use: No Retractions: Not Present Diminished Breath Sounds: No Grunting Respirations: No Kussmaul Respirations: No Differential Diagnoses: Pneumonia, Bronchitis, Influenza Review of Systems - Review Of Systems Constitutional: Reports: Fever Eyes: Reports: No symptoms Ears, Nose, Mouth, Throat: Reports: Nose discharge Respiratory: Reports: Cough Cardiac: Reports: No symptoms GI: Reports: No symptoms : Reports: No symptoms Musculoskeletal: Reports: No symptoms Skin: Reports: No symptoms Neurological: Reports: No symptoms Endocrine: Reports: No symptoms Hematologic/Lymphatic: Reports: No symptoms All Other Systems: Reviewed and Negative Past Medical History - Past Medical History Previously Healthy: No Endocrine: Reports: DM 2, Dyslipidemia Cardiovascular: Reports: CAD, [place], Hypertension, CHF, A-Fib Respiratory: Reports: COPD, Asthma Hematological: Reports: Unknown Gastrointestinal: Reports: GERD, Diverticulitis, Other Genitourinary: Reports: Kidney stones, Other Neuro/Psych: Reports: Migraine, Seizure, Anxiety, Depression, Bipolar Disorder, Schizophrenia Musculoskeletal: Reports: Arthritis, Back Pain Cancer: Reports: Breast Last Menstrual Period: n/a Other Pertinent Past Medical History: IBS, PARANOID SCHIZOPHRENIA,ENDOMETRIOSIS - Surgical History General Surgical History: Reports: Hysterectomy, Tubal ligation, Cholecystectomy , Tonsillectomy, Orthopedic, Hernia Repair, Other - Family History Family History: Reports: Unknown - Social History Smoking Status: Current every day smoker, Heavy tobacco smoker Hx Substance Use: No Alcohol Screening: None Lives: With family Physical Exam - Physical Exam Appearance: Well-appearing Eyes: HANH, EOMI, Conjunctiva clear ENT: Ears normal, Nose normal, Oropharynx normal Neck: Supple Respiratory: Airway patent, Breath sounds equal, Respirations nonlabored, Rhonchi Cardiovascular: RRR, Pulses normal, No rub, No murmur GI/: Soft, Nontender, No masses, Bowel sounds normal, No Organomegaly Musculoskeletal: Normal strength, ROM intact, No edema, No calf tenderness Skin: Warm, Dry, Normal color Neurological: Sensation intact, Motor intact, Reflexes intact, Cranial nerves intact, Alert, Oriented Psychiatric: Affect appropriate, Mood appropriate Interpretation - Radiology Interpretation Radiology Interpretation By: ED Physician Radiology Results: Negative Exam Interpreted: CXR Critical Care Note - Critical Care Note Total Time (mins): 0 Course - Course Hematology/Chemistry: 08/04/17 19:08 08/04/17 19:08 Orders, Labs, Meds: Lab Review 08/04/17 08/04/17 08/04/17 18:55 19:08 19:08 WBC 8.53 RBC 4.91 Hgb 15.1 Hct 41.5 MCV 84.5 MCH 30.8 MCHC 36.4 H RDW Coeff of Yanet 11.9 Plt Count 172 Immature Gran % (Auto) 0.7 Neut % (Auto) 40.1 Lymph % (Auto) 50.6 H [place] % (Auto) 6.8 Eos % (Auto) 1.2 Baso % (Auto) 0.6 Immature Gran # (Auto) 0.1 Neut # 3.4 Lymph # 4.3 H [place] # 0.6 Eos # 0.1 Baso # 0.1 Sodium 132 L Potassium 4.3 Chloride 95 L Carbon Dioxide 29 Anion Gap 12.3 BUN 8 Creatinine 0.84 Estimated GFR (MDRD) 71.00 BUN/Creatinine Ratio 9.52 Glucose 322 H Lactic Acid Calcium 9.7 Total Bilirubin 0.4 AST 9 L ALT 12 Alkaline Phosphatase 156 H Total Protein 7.6 Albumin 3.6 Globulin 4.0 Albumin/Globulin Ratio 0.90 Procalcitonin Urine Color Yellow Urine Clarity Clear Urine pH 6.5 Ur Specific [place] 1.015 Urine Protein Negative Urine Glucose (UA) 2+ Urine Ketones Negative Urine Blood Negative Urine Nitrite Negative Urine Bilirubin Negative Urine Urobilinogen 0.2 Ur Leukocyte Esterase Negative Influenza A (Rapid) Influenza B (Rapid) 08/04/17 08/04/17 08/04/17 19:08 19:08 19:19 WBC RBC Hgb Hct MCV MCH MCHC RDW Coeff of Yanet Plt Count Immature Gran % (Auto) Neut % (Auto) Lymph % (Auto) [place] % (Auto) Eos % (Auto) Baso % (Auto) Immature Gran # (Auto) Neut # Lymph # [place] # Eos # Baso # Sodium Potassium Chloride Carbon Dioxide Anion Gap BUN Creatinine Estimated GFR (MDRD) BUN/Creatinine Ratio Glucose Lactic Acid 12.5 Calcium Total Bilirubin AST ALT Alkaline Phosphatase Total Protein Albumin Globulin Albumin/Globulin Ratio Procalcitonin < 0.05 Urine Color Urine Clarity Urine pH Ur Specific [place] Urine Protein Urine Glucose (UA) Urine Ketones Urine Blood Urine Nitrite Urine Bilirubin Urine Urobilinogen Ur Leukocyte Esterase Influenza A (Rapid) Negative by naat Influenza B (Rapid) Negative by naat Orders Category Date Time Status BLOOD CULTURE (ED ONLY) Stat LAB 08/04/17 19:08 Received CBC W/ AUTO DIFF Stat LAB 08/04/17 19:08 Completed COMPREHENSIVE METABOLIC PANEL Stat LAB 08/04/17 19:08 Completed LACTIC ACID Stat LAB 08/04/17 19:08 Completed MOLECULAR FLU A/B Stat LAB 08/04/17 19:19 Completed MOLECULAR GROUP A STREP Stat LAB 08/04/17 19:19 Completed PROCALCITONIN Stat LAB 08/04/17 19:08 Completed URINALYSIS C & S IF INDICATED Stat LAB 08/04/17 18:55 Completed Ondansetron HCl/Pf [Zofran 4 mg/2 ml] MEDS 08/04/17 20:46 Discontinued 4 mg IM ONCE STA CXR [CHEST, 2 VIEWS PA & LAT] Stat RADS 08/04/17 18:46 Taken Medications Discontinued Medications Generic Name Dose Route Start Last Admin Trade Name Freq PRN Reason Stop Dose Admin Ondansetron HCl 4 mg 08/04/17 20:46 Zofran 4 Mg/2 Ml IM 08/04/17 20:47 ONCE STA Vital Signs: Temp Pulse Resp BP Pulse Ox 08/04/17 18:38 99.7 F H 110 H 24 93/71 94 L Departure - Departure Time of Disposition: 20:50 Disposition: HOME SELF-CARE Discharge Problem: Bronchitis, Chest wall pain Instructions: Acute Bronchitis (ED) Condition: Good Pt referred to PMD for follow-up: Yes Additional Instructions: cipro 500mg bid x 7 days--norco 7.5mg q 4hrs prn pain #12--f/u wtih pcp Allergies/Adverse Reactions: Allergies carbamazepine [From Tegretol] Adverse Reaction (Verified 07/09/17 15:21) chlorpromazine HCl [From Thorazine] Adverse Reaction (Verified 07/09/17 15:21) cyclobenzaprine [From Flexeril] Adverse Reaction (Verified 07/09/17 15:21) dexamethasone [From Decadron] Adverse Reaction (Verified 07/09/17 15:21) dexamethasone sod phosphate [From Decadron] Adverse Reaction (Verified 07/09/17 15:21) dextromethorphan HBr [From Vicks Nature Fusion Cough] Adverse Reaction ( Verified 07/09/17 15:21) hydromorphone [From Dilaudid] Adverse Reaction (Verified 07/09/17 15:21) hydroxyzine HCl [From Vistaril] Adverse Reaction (Verified 07/09/17 15:21) hydroxyzine pamoate [From Vistaril] Adverse Reaction (Verified 07/09/17 15:21) insulin detemir [From Levemir] Adverse Reaction (Verified 07/09/17 15:21) insulin glargine,hum.rec.anlog [From Lantus] Adverse Reaction (Verified 15:21) Iodinated Contrast- Oral and IV Dye Adverse Reaction (Verified 07/09/17 15:21) lorazepam [From Ativan] Adverse Reaction (Verified 07/09/17 15:21) meperidine [From Demerol] Adverse Reaction (Verified 07/09/17 15:21) metformin Adverse Reaction (Verified 07/09/17 15:21) methylprednisolone [From Medrol] Adverse Reaction (Verified 07/09/17 15:21) nitrofurantoin [From Macrobid] Adverse Reaction (Verified 07/09/17 15:21) nitrofurantoin macrocrystal [From Macrobid] Adverse Reaction (Verified 07/09/17 15:21) Penicillins Adverse Reaction (Verified 07/09/17 15:21) phenytoin sodium [From Dilantin] Adverse Reaction (Verified 07/09/17 15:21) phenytoin sodium extended [From Dilantin] Adverse Reaction (Verified 07/09/17 15 :21) prednisone Adverse Reaction (Verified 07/09/17 15:21) promethazine [From Phenergan] Adverse Reaction (Verified 08/04/17 18:44) Sulfa (Sulfonamide Antibiotics) Adverse Reaction (Verified 07/09/17 15:21) tramadol HCl [From Ultram] Adverse Reaction (Verified 07/09/17 15:21) trimethoprim [From Bactrim] Adverse Reaction (Verified 07/09/17 15:21) paper tape Adverse Reaction (Uncoded 07/09/17 15:21) Home Medications: Ambulatory Orders Tiotropium [place] [Spiriva] 1 cap IH DAILY 01/24/13 Topiramate [Topamax] 50 mg PO TID 01/24/13 Aspirin [Aspirin EC] 325 mg PO DAILY 11/03/13 Pantoprazole Sodium [Protonix] 40 mg PO BID 06/10/14 Insulin Lispro [Humalog] 10 unit SUBCUT QID 07/22/14 Lovastatin [Mevacor] 40 mg PO BEDTIME 05/16/15 Furosemide [Lasix Tab] 80 mg PO TUTHSA 01/03/16 Multivitamin [One Daily Multivitamin] 1 each PO DAILY 01/03/16 Fluticasone Propionate [Flonase] 1 spray NS BID PRN 04/15/16 Cetirizine HCl [Zyrtec] 10 mg PO DAILY PRN 11/23/16 Budesonide/Formoterol Fumarate [Symbicort 160-4.5 Mcg Inhaler] 2 puff IH BID Hydrocodone/Acetaminophen [[place] 7.5-325 Tablet] 10 mg PO Q6HR PRN 12/19/16 Insulin NPH Human Isophane [Humulin N Kwikpen] 10 unit SQ BEDTIME 04/30/17 Cyclobenzaprine HCl [Flexeril] 10 mg PO BID 06/05/17 Hydroxyzine HCl 50 mg PO BID 08/04/17 Disposition Discussed With: Patient, Family
[2017-08-04 21:26] VITALS: BP 101/74; TEMP 99.2
--- NOTE | 2017-08-05 07:52 | DI ---
EXAM: Chest two view, frontal and lateral views. HISTORY: Cough. COMPARISON: 07/09/2017, 12/17/2015, 09/30/2014, 03/02/2011. FINDINGS: The heart size is normal. There is no pulmonary vascular congestion. The lungs are clear save for stable right lung calcified granuloma. No pleural effusion or pneumothorax is seen. No ac kieran osseous abnormality identified. Clips seen in the upper abdomen. Since the prior study, there craft s been no significant interval change. IMPRESSION: No acute cardiopulmonary process.
== END 2017-08-04 20:55 | disposition home or self-care (01) ==
LOC: ED 18:37
DX: J40 Bronchitis, not specified as acute or chronic (principal); R07.89 Other chest pain; F17.210 Nicotine dependence, cigarettes, uncomplicated
CPT/HCPCS: 36415; 80053; 81001; 83605; 84145; 85025; 87040; 87502; 87651; 96372; 99283

== ENCOUNTER 2017-09-19 14:13 | Emergency (ER) ==
[2017-09-19 14:20] VITALS: BP 100/50; TEMP 98.6; BMI 26.6
--- NOTE | 2017-09-19 15:01 | CT ---
EXAM: CT of the abdomen pelvis without contrast History: Abdominal pain. Comparison: CT abdomen pelvis 11/23/2016 Technique: Multiplanar CT images through the abdomen pelvis were obtained without the administration of IV contrast Findings: No change in the small to moderate pericardial effusion. Interlobular septal thickening s een at the lung bases. Heart is mildly enlarged. Trace bilateral pleural effusions. No acute osseo us abnormalities. Status post cholecystectomy. No focal liver or splenic lesions. Duodenal diverticulum again noted. No peripancreatic inflammation. Adrenal glands are unremarkable. No renal stones and no hydronephr osis. Fluid seen in the stomach. Nondilated loops of small bowel. There is fluid seen throughout t he colon and scattered colonic stool. Colonic diverticulosis. No free air and no ascites. No bladd er wall thickening. Uterus is not seen. Surgical clips seen within the pelvis. No perirectal infla mmation. Impression: 1. Mild gastroenteritis. No bowel obstruction. 2. Mild cardiomegaly with interstitial edema and trace bilateral pleural effusions. 3. No change in the small to moderate pericardial effusion.
--- NOTE | 2017-09-19 15:12 | ED.PDOC ---
General ED Provider: Dr. SAMIA SILVA Chief Complaint: Diarrhea Stated Complaint: diarrhea Time Seen by Physician: 14:30 (pt has had diarrrhea with cramps ) Mode of Arrival: Walk-In Information Source: Patient Exam Limitations: No limitations Primary Care Provider: FLAKITA MCALLISTER Nursing and Triage Documentation Reviewed and Agree: Yes (no GI BLEED ) Reviewed sepsis parameters & appropriate labs ordered?: Yes System Inflammatory Response Syndrome: Not Applicable Sepsis Protocol: For patient's 13 years and over: Temp is 96.8 and below OR 101 and greater Pulse >90 BPM Resp >20/minute Acutely Altered Mental Status Are patient's symptoms suggestive of a new infection, such as: -Pneumonia -Skin, Soft Tissue -Endocarditis -UTI -Bone, Joint Infection -Implantable Device -Acute Abdominal Infection -Wound Infection -Meningitis -Blood Stream Catheter Infection -Unknown System Inflammatory Response Syndrome: Not Applicable GI Complaint Exam - Vomiting/Diarrhea Complaint/Exam Onset/Duration: TODAY Symptoms Are: Resolved Episodes of Vomiting over last 24 Hours: 0 Episodes of Diarrhea Over Last 24 Hours: 2 Initial Severity: Mild Current Severity: None Character of Diarrhea: Reports: Watery Aggravating: Reports: None Alleviating: Reports: None Associated Signs and Symptoms: Reports: Abdominal pain. Denies: Dizziness, Light-headedness, Melena, Hematemesis, Fever, Cramping Use of Oral Contraceptives: No Use of Depoprovera: No Compliant With Contraceptive Use: No Surgical Obstruction Risk Factors: Reports: None Related Surgical History: Reports: None Abdominal Findings: Present: None Kussmaul Respirations Present: No Differential Diagnoses: Viral Gastroenteritis Review of Systems - Review Of Systems Constitutional: Reports: No symptoms Eyes: Reports: No symptoms Ears, Nose, Mouth, Throat: Reports: No symptoms Respiratory: Reports: No symptoms Cardiac: Reports: No symptoms GI: Reports: Abdominal pain, Diarrhea : Reports: No symptoms Musculoskeletal: Reports: No symptoms Skin: Reports: No symptoms Neurological: Reports: No symptoms Endocrine: Reports: No symptoms Hematologic/Lymphatic: Reports: No symptoms All Other Systems: Reviewed and Negative Past Medical History - Past Medical History Previously Healthy: No Endocrine: Reports: DM 2, Dyslipidemia Cardiovascular: Reports: CAD, [place], Hypertension, CHF, A-Fib Respiratory: Reports: COPD, Asthma Hematological: Reports: Unknown Gastrointestinal: Reports: GERD, Diverticulitis, Other Genitourinary: Reports: Kidney stones, Other Neuro/Psych: Reports: Migraine, Seizure, Anxiety, Depression, Bipolar Disorder, Schizophrenia Musculoskeletal: Reports: Arthritis, Back Pain Cancer: Reports: Breast Last Menstrual Period: n/a Other Pertinent Past Medical History: IBS, PARANOID SCHIZOPHRENIA,ENDOMETRIOSIS - Surgical History General Surgical History: Reports: Hysterectomy, Tubal ligation, Cholecystectomy , Tonsillectomy, Orthopedic, Hernia Repair, Other - Family History Family History: Reports: Unknown - Social History Smoking Status: Current every day smoker, Heavy tobacco smoker Hx Substance Use: No Alcohol Screening: None Physical Exam - Physical Exam Appearance: Well-appearing, No pain distress, Well-nourished Eyes: HANH, EOMI, Conjunctiva clear ENT: Ears normal, Nose normal, Oropharynx normal Respiratory: Airway patent, Breath sounds clear, Breath sounds equal, Respirations nonlabored Cardiovascular: RRR, Pulses normal, No rub, No murmur GI/: Soft, Nontender, No masses, Bowel sounds normal, No Organomegaly Musculoskeletal: Normal strength, ROM intact, No edema, No calf tenderness Skin: Warm, Dry, Normal color Neurological: Sensation intact, Motor intact, Reflexes intact, Cranial nerves intact, Alert, Oriented Psychiatric: Affect appropriate, Mood appropriate Interpretation - Radiology Interpretation Radiology Interpretation By: Radiologist Radiology Results: No acute changes Critical Care Note - Critical Care Note Total Time (mins): 0 Course - Course Hematology/Chemistry: 09/19/17 14:30 09/19/17 14:30 Orders, Labs, Meds: Lab Review 09/19/17 09/19/17 14:30 14:30 WBC 15.25 H RBC 5.29 Hgb 15.6 Hct 43.9 MCV 83.0 MCH 29.5 MCHC 35.5 H RDW Coeff of Yanet 11.8 Plt Count 184 Immature Gran % (Auto) 1.2 Neut % (Auto) 71.8 Lymph % (Auto) 20.1 [place] % (Auto) 6.2 Eos % (Auto) 0.4 Baso % (Auto) 0.3 Immature Gran # (Auto) 0.2 Neut # 11.0 H Lymph # 3.1 [place] # 0.9 Eos # 0.1 Baso # 0.1 Sodium 133 L Potassium 4.7 Chloride 96 L Carbon Dioxide 27 Anion Gap 14.7 BUN 14 Creatinine 0.90 Estimated GFR (MDRD) 66.00 BUN/Creatinine Ratio 15.55 Glucose 462 H Calcium 9.4 Total Bilirubin 0.4 AST 7 L ALT 8 L Alkaline Phosphatase 152 H Total Protein 7.2 Albumin 3.2 L Globulin 4.0 Albumin/Globulin Ratio 0.80 Orders Category Date Time Status EKG-(ED ONLY) Stat CARDIO 09/19/17 14:29 Ordered CBC W/ AUTO DIFF Stat LAB 09/19/17 14:30 Completed COMPREHENSIVE METABOLIC PANEL Stat LAB 09/19/17 14:[address] ABDOMEN/PELVIS WO CONTRAST Stat RADS 09/19/17 14:29 Completed Vital Signs: Temp Pulse Resp BP Pulse Ox 09/19/17 14:13 98.6 F 110 H 16 100/50 L 95 Departure - Departure Time of Disposition: 15:12 Disposition: HOME SELF-CARE Discharge Problem: Diarrhea, Acute diarrhea, Gastroenteritis Instructions: Type 2 Diabetes in Adults (ED) Condition: Good Pt referred to PMD for follow-up: Yes IPMP verified?: No Additional Instructions: Please call your Family Physician as soon as possible to schedule a follow-up appointment. Allergies/Adverse Reactions: Allergies carbamazepine [From Tegretol] Adverse Reaction (Verified 09/19/17 14:23) chlorpromazine HCl [From Thorazine] Adverse Reaction (Verified 09/19/17 14:23) cyclobenzaprine [From Flexeril] Adverse Reaction (Verified 09/19/17 14:23) dexamethasone [From Decadron] Adverse Reaction (Verified 09/19/17 14:23) dexamethasone sod phosphate [From Decadron] Adverse Reaction (Verified 09/19/17 14:23) dextromethorphan HBr [From Vicks Nature Fusion Cough] Adverse Reaction ( Verified 09/19/17 14:23) hydromorphone [From Dilaudid] Adverse Reaction (Verified 09/19/17 14:23) hydroxyzine HCl [From Vistaril] Adverse Reaction (Verified 09/19/17 14:23) hydroxyzine pamoate [From Vistaril] Adverse Reaction (Verified 09/19/17 14:23) insulin detemir [From Levemir] Adverse Reaction (Verified 09/19/17 14:23) insulin glargine,hum.rec.anlog [From Lantus] Adverse Reaction (Verified 14:23) Iodinated Contrast- Oral and IV Dye Adverse Reaction (Verified 09/19/17 14:23) lorazepam [From Ativan] Adverse Reaction (Verified 09/19/17 14:23) meperidine [From Demerol] Adverse Reaction (Verified 09/19/17 14:23) metformin Adverse Reaction (Verified 09/19/17 14:23) methylprednisolone [From Medrol] Adverse Reaction (Verified 09/19/17 14:23) nitrofurantoin [From Macrobid] Adverse Reaction (Verified 09/19/17 14:23) nitrofurantoin macrocrystal [From Macrobid] Adverse Reaction (Verified 09/19/17 14:23) Penicillins Adverse Reaction (Verified 09/19/17 14:23) phenytoin sodium [From Dilantin] Adverse Reaction (Verified 09/19/17 14:23) phenytoin sodium extended [From Dilantin] Adverse Reaction (Verified 09/19/17 14 :23) prednisone Adverse Reaction (Verified 09/19/17 14:23) promethazine [From Phenergan] Adverse Reaction (Verified 09/19/17 14:23) Sulfa (Sulfonamide Antibiotics) Adverse Reaction (Verified 09/19/17 14:23) tramadol HCl [From Ultram] Adverse Reaction (Verified 09/19/17 14:23) trimethoprim [From Bactrim] Adverse Reaction (Verified 09/19/17 14:23) paper tape Adverse Reaction (Uncoded 07/09/17 15:21) Home Medications: Ambulatory Orders Topiramate [Topamax] 50 mg PO BID 01/24/13 Aspirin [Aspirin EC] 325 mg PO DAILY 11/03/13 Pantoprazole Sodium [Protonix] 40 mg PO BID 06/10/14 Insulin Lispro [Humalog] 10 unit SUBCUT QID 07/22/14 Multivitamin [One Daily Multivitamin] 1 each PO DAILY 01/03/16 Cetirizine HCl [Zyrtec] 10 mg PO DAILY PRN 11/23/16 Hydrocodone/Acetaminophen [[place] 7.5-325 Tablet] 10 mg PO Q6HR PRN 12/19/16 Insulin NPH Human Isophane [Humulin N Kwikpen] 10 unit SQ BEDTIME 04/30/17 Hydroxyzine HCl 25 mg PO TID 08/04/17 Prazosin HCl 1 mg PO BEDTIME 09/19/17
[2017-09-19] MEDS ORDERED: HUMULIN R SUBCUT STA (15:13)
[2017-09-19] MEDS ORDERED: HUMULIN R ONE (15:42)
== END 2017-09-19 15:28 | disposition home or self-care (01) ==
LOC: ED 14:13
DX: K52.9 Noninfective gastroenteritis and colitis, unspecified (principal); E11.9 Type 2 diabetes mellitus without complications; F17.210 Nicotine dependence, cigarettes, uncomplicated; Z79.899 Other long term (current) drug therapy
CPT/HCPCS: 36415; 80053; 85025; 96372; 99283

== ENCOUNTER 2017-09-21 07:15 | Outpatient (CLI) ==
[2013-01-24 14:52] VITALS: TEMP 98.1
[2017-09-21 07:38] VITALS: BMI 28.2
== END 2017-09-21 07:16 | disposition critical access hospital (66) ==
LOC: AMBL 07:15
PROVIDERS: ATTEND Internal Medicine
DX: R11.2 Nausea with vomiting, unspecified (principal); R19.7 Diarrhea, unspecified; R53.1 Weakness

== ENCOUNTER 2017-09-21 07:23 | Emergency (ER) ==
[2017-09-21 07:38] VITALS: BP 138/85; TEMP 97.7; BMI 28.2
--- NOTE | 2017-09-21 08:27 | ED.PDOC ---
General ED Provider: Dr. SAMIA SILVA Chief Complaint: Nausea/Vomiting Stated Complaint: nausea, vomiting Time Seen by Physician: 07:29 Mode of Arrival: Stretcher Information Source: Patient, EMT Exam Limitations: No limitations Primary Care Provider: FLAKITA CMALLISTER Nursing and Triage Documentation Reviewed and Agree: Yes Reviewed sepsis parameters & appropriate labs ordered?: Yes System Inflammatory Response Syndrome: Not Applicable Sepsis Protocol: For patient's 13 years and over: Temp is 96.8 and below OR 101 and greater Pulse >90 BPM Resp >20/minute Acutely Altered Mental Status Are patient's symptoms suggestive of a new infection, such as: -Pneumonia -Skin, Soft Tissue -Endocarditis -UTI -Bone, Joint Infection -Implantable Device -Acute Abdominal Infection -Wound Infection -Meningitis -Blood Stream Catheter Infection -Unknown System Inflammatory Response Syndrome: Not Applicable GI Complaint Exam - Vomiting/Diarrhea Complaint/Exam Onset/Duration: flu like symp x 3 days still feels not well Symptoms Are: Still present Episodes of Vomiting over last 24 Hours: 2 Episodes of Diarrhea Over Last 24 Hours: 3 Initial Severity: Mild Current Severity: None Aggravating: Reports: None Alleviating: Reports: None Associated Signs and Symptoms: Denies: Dizziness, Light-headedness, Melena, Hematemesis, Fever, Abdominal pain, Cramping Related History: Reports: Similar episode Non-GI Risk Factors: Reports: None Surgical Obstruction Risk Factors: Reports: None Related Surgical History: Reports: None Abdominal Findings: Present: None Kussmaul Respirations Present: No Differential Diagnoses: Viral Gastroenteritis Review of Systems - Review Of Systems Constitutional: Reports: Malaise, Weakness Eyes: Reports: No symptoms Ears, Nose, Mouth, Throat: Reports: No symptoms Respiratory: Reports: No symptoms Cardiac: Reports: No symptoms GI: Reports: No symptoms : Reports: No symptoms Musculoskeletal: Reports: No symptoms Skin: Reports: No symptoms Neurological: Reports: No symptoms Endocrine: Reports: No symptoms Hematologic/Lymphatic: Reports: No symptoms All Other Systems: Reviewed and Negative Past Medical History - Past Medical History Previously Healthy: No Endocrine: Reports: DM 2, Dyslipidemia Cardiovascular: Reports: CAD, [place], Hypertension, CHF, A-Fib Respiratory: Reports: COPD, Asthma Hematological: Reports: Unknown Gastrointestinal: Reports: GERD, Diverticulitis, Other Genitourinary: Reports: Kidney stones, Other Neuro/Psych: Reports: Migraine, Seizure, Anxiety, Depression, Bipolar Disorder, Schizophrenia Musculoskeletal: Reports: Arthritis, Back Pain Cancer: Reports: Breast Last Menstrual Period: hysterectomy Other Pertinent Past Medical History: IBS, PARANOID SCHIZOPHRENIA,ENDOMETRIOSIS - Surgical History General Surgical History: Reports: Hysterectomy, Tubal ligation, Cholecystectomy , Tonsillectomy, Orthopedic, Hernia Repair, Other - Family History Family History: Reports: Unknown - Social History Smoking Status: Current every day smoker, Heavy tobacco smoker Hx Substance Use: No Alcohol Screening: None Physical Exam - Physical Exam Appearance: Well-appearing, No pain distress, Well-nourished Eyes: HANH, EOMI, Conjunctiva clear ENT: Ears normal, Nose normal, Oropharynx normal Respiratory: Airway patent, Breath sounds clear, Breath sounds equal, Respirations nonlabored Cardiovascular: RRR, Pulses normal, No rub, No murmur GI/: Soft, Nontender, No masses, Bowel sounds normal, No Organomegaly Musculoskeletal: Normal strength, ROM intact, No edema, No calf tenderness Skin: Warm, Dry, Normal color Neurological: Sensation intact, Motor intact, Reflexes intact, Cranial nerves intact, Alert, Oriented Psychiatric: Affect appropriate, Mood appropriate Critical Care Note - Critical Care Note Total Time (mins): 0 Course - Course Hematology/Chemistry: 09/21/17 07:40 09/21/17 07:40 Orders, Labs, Meds: Lab Review 09/21/17 09/21/17 09/21/17 07:40 07:40 07:40 WBC 9.79 D RBC 4.81 Hgb 14.6 Hct 40.4 MCV 84.0 MCH 30.4 MCHC 36.1 H RDW Coeff of [place]et 11.9 Plt Count 150 Immature Gran % (Auto) 1.5 Neut % (Auto) 60.0 Lymph % (Auto) 30.5 [place] % (Auto) 6.6 Eos % (Auto) 1.0 Baso % (Auto) 0.4 Immature Gran # (Auto) 0.2 Neut # 5.9 Lymph # 3.0 [place] # 0.7 Eos # 0.1 Baso # 0.0 Sodium 135 L Potassium 4.2 Chloride 100 Carbon Dioxide 25 Anion Gap 14.2 BUN 13 Creatinine 0.78 Estimated GFR (MDRD) 78.00 BUN/Creatinine Ratio 16.66 Glucose 331 H Calcium 9.4 Total Bilirubin 0.4 AST 7 L ALT 7 L Alkaline Phosphatase 131 H Total Protein 6.8 Albumin 3.1 L Globulin 3.7 Albumin/Globulin Ratio 0.84 Influenza A (Rapid) Negative by naat Influenza B (Rapid) Negative by naat Orders Category Date Time Status CBC W/ AUTO DIFF Stat LAB 09/21/17 07:40 Completed COMPREHENSIVE METABOLIC PANEL Stat LAB 09/21/17 07:40 Completed FLU A/B MOLECULAR Stat LAB 09/21/17 07:40 Completed MOLECULAR GROUP A STREP Stat LAB 09/21/17 07:40 Completed URINALYSIS C & S IF INDICATED Stat LAB 09/21/17 07:27 Uncollected Insulin Regular, Human [Humulin R] MEDS 09/21/17 08:23 Discontinued 8 unit SUBCUT ONCE STA CT ABDOMEN/PELVIS WO CONTRAST Stat RADS 09/21/17 07:27 Ordered Medications Discontinued Medications Generic Name Dose Route Start Last Admin Trade Name Freq PRN Reason Stop Dose Admin Insulin Human Regular 8 unit 09/21/17 08:23 Humulin R SUBCUT 09/21/17 08:24 ONCE STA Vital Signs: Temp Pulse Resp BP Pulse Ox 09/21/17 07:25 97.7 F 92 H 20 138/85 97 Departure - Departure Time of Disposition: 09:01 Disposition: HOME SELF-CARE Discharge Problem: Nausea, Vomiting, Viral syndrome, Acute diarrhea, Gastroenteritis Instructions: Gastroenteritis (ED) Condition: Good Pt referred to PMD for follow-up: No IPMP verified?: No Additional Instructions: Please call your Family Physician as soon as possible to schedule a follow-up appointment. Allergies/Adverse Reactions: Allergies carbamazepine [From Tegretol] Adverse Reaction (Verified 09/21/17 07:38) chlorpromazine HCl [From Thorazine] Adverse Reaction (Verified 09/21/17 07:38) cyclobenzaprine [From Flexeril] Adverse Reaction (Verified 09/21/17 07:38) dexamethasone [From Decadron] Adverse Reaction (Verified 09/21/17 07:38) dexamethasone sod phosphate [From Decadron] Adverse Reaction (Verified 09/21/17 07:38) dextromethorphan HBr [From Vicks Nature Fusion Cough] Adverse Reaction ( Verified 09/21/17 07:38) hydromorphone [From Dilaudid] Adverse Reaction (Verified 09/21/17 07:38) hydroxyzine HCl [From Vistaril] Adverse Reaction (Verified 09/21/17 07:38) hydroxyzine pamoate [From Vistaril] Adverse Reaction (Verified 09/21/17 07:38) insulin detemir [From Levemir] Adverse Reaction (Verified 09/21/17 07:38) insulin glargine,hum.rec.anlog [From Lantus] Adverse Reaction (Verified 07:38) Iodinated Contrast- Oral and IV Dye Adverse Reaction (Verified 09/21/17 07:38) lorazepam [From Ativan] Adverse Reaction (Verified 09/21/17 07:38) meperidine [From Demerol] Adverse Reaction (Verified 09/21/17 07:38) metformin Adverse Reaction (Verified 09/21/17 07:38) methylprednisolone [From Medrol] Adverse Reaction (Verified 09/21/17 07:38) nitrofurantoin [From Macrobid] Adverse Reaction (Verified 09/21/17 07:38) nitrofurantoin macrocrystal [From Macrobid] Adverse Reaction (Verified 09/21/17 07:38) Penicillins Adverse Reaction (Verified 09/21/17 07:38) phenytoin sodium [From Dilantin] Adverse Reaction (Verified 09/21/17 07:38) phenytoin sodium extended [From Dilantin] Adverse Reaction (Verified 09/21/17 07 :38) prednisone Adverse Reaction (Verified 09/21/17 07:38) promethazine [From Phenergan] Adverse Reaction (Verified 09/21/17 07:38) Sulfa (Sulfonamide Antibiotics) Adverse Reaction (Verified 09/21/17 07:38) tramadol HCl [From Ultram] Adverse Reaction (Verified 09/21/17 07:38) trimethoprim [From Bactrim] Adverse Reaction (Verified 09/21/17 07:38) paper tape Adverse Reaction (Uncoded 07/09/17 15:21) Home Medications: Ambulatory Orders Topiramate [Topamax] 50 mg PO BID 01/24/13 Aspirin [Aspirin EC] 325 mg PO DAILY 11/03/13 Pantoprazole Sodium [Protonix] 40 mg PO BID 06/10/14 Insulin Lispro [Humalog] 10 unit SUBCUT QID 07/22/14 Multivitamin [One Daily Multivitamin] 1 each PO DAILY 01/03/16 Cetirizine HCl [Zyrtec] 10 mg PO DAILY PRN 11/23/16 Hydrocodone/Acetaminophen [[place] 7.5-325 Tablet] 10 mg PO Q6HR PRN 12/19/16 Insulin NPH Human Isophane [Humulin N Kwikpen] 10 unit SQ BEDTIME 04/30/17 Hydroxyzine HCl 25 mg PO TID 08/04/17 Prazosin HCl 1 mg PO BEDTIME 09/19/17 Disposition Discussed With: Patient
--- NOTE | 2017-09-21 08:30 | CT ---
EXAM: CT Abdomen without contrast. CT Pelvis without contrast. HISTORY: Abdominal pain, nausea and vomiting. COMPARISON: 09/19/2017. TECHNIQUE: Multiple axial images of the abdomen and pelvis were obtained without intravenous contras t. Images were reformatted in the coronal plane. FINDINGS: Please note that evaluation of the abdominal and pelvic structures is limited due to lack of intravenous contrast. Small to moderate pericardial effusion again noted. Mild subsegmental atelectasis seen in the lower lobes with improved aeration since the prior study. Degenerative changes present throughout the spin e. The gallbladder is absent. Liver demonstrates subtle nodular surface contour. The pancreas, spleen, and adrenal glands demonstrate normal contour. Nonobstructing right renal calculi are seen. There is no hydronephrosis. There is no evidence for bowel obstruction or acute inflammation. There is mild fluid distension of both the small and large bowel. Colonic diverticulosis noted. Appendix not seen. Uterus is absent. Urinary bladder is unremarkable. No free fluid or free air identified. Clips seen in the pelvis. Atherosclerotic calcifications present. IMPRESSION: 1. Findings suggest enteritis. 2. Right nephrolithiasis. 3. Question cirrhosis. 4. Diverticulosis.
[2017-09-21] MEDS: HUMULIN R SUBCUT STA (08:42)
[2017-09-21] MEDS: ZOFRAN 4 MG/2 ML IVP STA (08:49)
[2017-09-21] MEDS: LOMOTIL PO STA (08:50)
== END 2017-09-21 09:30 | disposition home or self-care (01) ==
LOC: ED 07:23
DX: K52.9 Noninfective gastroenteritis and colitis, unspecified (principal); B34.9 Viral infection, unspecified; F17.210 Nicotine dependence, cigarettes, uncomplicated
CPT/HCPCS: 36415; 80053; 85025; 87502; 87651; 96372; 99283

== ENCOUNTER 2017-10-16 15:23 | Emergency (ER) ==
[2017-10-16 15:30] VITALS: BP 103/72; TEMP 98; BMI 25.8
--- NOTE | 2017-10-16 15:39 | ED.PDOC ---
General ED Provider: Dr. SAMIA SILVA Chief Complaint: Bite Stated Complaint: insect bite right second toe Time Seen by Physician: 15:38 (see photos) Mode of Arrival: Walk-In Information Source: Patient Exam Limitations: No limitations Primary Care Provider: FLAKITA MCALLISTER Nursing and Triage Documentation Reviewed and Agree: Yes Reviewed sepsis parameters & appropriate labs ordered?: Yes System Inflammatory Response Syndrome: Not Applicable Sepsis Protocol: For patient's 13 years and over: Temp is 96.8 and below OR 101 and greater Pulse >90 BPM Resp >20/minute Acutely Altered Mental Status Are patient's symptoms suggestive of a new infection, such as: -Pneumonia -Skin, Soft Tissue -Endocarditis -UTI -Bone, Joint Infection -Implantable Device -Acute Abdominal Infection -Wound Infection -Meningitis -Blood Stream Catheter Infection -Unknown System Inflammatory Response Syndrome: Not Applicable Musculoskeletal Complaint Exam - Ankle/Foot Complaint/Exam Location of Injury: Reports: Right, Toe #2 Mechanism of Injury: Reports: No known trauma (insect bite) Onset/Duration: 2 days Symptoms Are: Reports: Still present Initial Severity: Moderate Current Severity: Moderate Character: Reports: Aching Alleviating: Reports: None Aggravating: Reports: None Associated Signs and Symptoms: Reports: Swelling (see photos), Redness Review of Systems - Review Of Systems Constitutional: Reports: No symptoms Eyes: Reports: No symptoms Ears, Nose, Mouth, Throat: Reports: No symptoms Respiratory: Reports: No symptoms Cardiac: Reports: No symptoms GI: Reports: No symptoms : Reports: No symptoms Musculoskeletal: Reports: No symptoms Skin: Reports: No symptoms Neurological: Reports: No symptoms Endocrine: Reports: No symptoms Hematologic/Lymphatic: Reports: No symptoms All Other Systems: Reviewed and Negative Past Medical History - Past Medical History Previously Healthy: No Endocrine: Reports: DM 2, Dyslipidemia Cardiovascular: Reports: CAD, PR, Hypertension, CHF, A-Fib Respiratory: Reports: COPD, Asthma Hematological: Reports: Unknown Gastrointestinal: Reports: GERD, Diverticulitis, Other Genitourinary: Reports: Kidney stones, Other Neuro/Psych: Reports: Migraine, Seizure, Anxiety, Depression, Bipolar Disorder, Schizophrenia Musculoskeletal: Reports: Arthritis, Back Pain Cancer: Reports: Breast Last Menstrual Period: na Other Pertinent Past Medical History: IBS, PARANOID SCHIZOPHRENIA,ENDOMETRIOSIS - Surgical History General Surgical History: Reports: Hysterectomy, Tubal ligation, Cholecystectomy , Tonsillectomy, Orthopedic, Hernia Repair, Other - Family History Family History: Reports: Unknown - Social History Smoking Status: Never smoker Hx Substance Use: No Alcohol Screening: None - Immunizations Tetanus Shot up to Date: No Physical Exam - Physical Exam Appearance: Well-appearing, No pain distress, Well-nourished Eyes: HANH, EOMI, Conjunctiva clear ENT: Ears normal, Nose normal, Oropharynx normal Respiratory: Airway patent, Breath sounds clear, Breath sounds equal, Respirations nonlabored Cardiovascular: RRR, Pulses normal, No rub, No murmur GI/: Soft, Nontender, No masses, Bowel sounds normal, No Organomegaly Musculoskeletal: Normal strength, ROM intact, No edema, No calf tenderness Skin: Warm, Dry (see photos) Neurological: Sensation intact, Motor intact, Reflexes intact, Cranial nerves intact, Alert, Oriented Psychiatric: Affect appropriate, Mood appropriate Critical Care Note - Critical Care Note Total Time (mins): 0 Course - Course Vital Signs: Temp Pulse Resp BP Pulse Ox 10/16/17 15:24 98 F 109 H 20 103/72 94 L Departure - Departure Time of Disposition: 15:39 Disposition: HOME SELF-CARE Discharge Problem: Insect bite Qualifiers: Encounter type: initial encounter Qualified Code(s): W57.XXXA - Bitten or stung by nonvenomous insect and other nonvenomous arthropods, initial encounter Instructions: Insect Bite or Sting (ED) Condition: Good Pt referred to PMD for follow-up: Yes IPMP verified?: No Additional Instructions: Please call your Family Physician as soon as possible to schedule a follow-up appointment. Allergies/Adverse Reactions: Allergies carbamazepine [From Tegretol] Adverse Reaction (Verified 10/16/17 15:35) chlorpromazine HCl [From Thorazine] Adverse Reaction (Verified 10/16/17 15:35) cyclobenzaprine [From Flexeril] Adverse Reaction (Verified 10/16/17 15:35) dexamethasone [From Decadron] Adverse Reaction (Verified 10/16/17 15:35) dexamethasone sod phosphate [From Decadron] Adverse Reaction (Verified 10/16/17 15:35) dextromethorphan HBr [From Vicks Nature Fusion Cough] Adverse Reaction ( Verified 10/16/17 15:35) hydromorphone [From Dilaudid] Adverse Reaction (Verified 10/16/17 15:35) hydroxyzine HCl [From Vistaril] Adverse Reaction (Verified 10/16/17 15:35) hydroxyzine pamoate [From Vistaril] Adverse Reaction (Verified 10/16/17 15:35) insulin detemir [From Levemir] Adverse Reaction (Verified 10/16/17 15:35) insulin glargine,hum.rec.anlog [From Lantus] Adverse Reaction (Verified 15:35) Iodinated Contrast- Oral and IV Dye Adverse Reaction (Verified 10/16/17 15:35) lorazepam [From Ativan] Adverse Reaction (Verified 10/16/17 15:35) meperidine [From Demerol] Adverse Reaction (Verified 10/16/17 15:35) metformin Adverse Reaction (Verified 10/16/17 15:35) methylprednisolone [From Medrol] Adverse Reaction (Verified 10/16/17 15:35) nitrofurantoin [From Macrobid] Adverse Reaction (Verified 10/16/17 15:35) nitrofurantoin macrocrystal [From Macrobid] Adverse Reaction (Verified 10/16/17 15:35) Penicillins Adverse Reaction (Verified 10/16/17 15:35) phenytoin sodium [From Dilantin] Adverse Reaction (Verified 10/16/17 15:35) phenytoin sodium extended [From Dilantin] Adverse Reaction (Verified 10/16/17 15 :35) prednisone Adverse Reaction (Verified 10/16/17 15:35) promethazine [From Phenergan] Adverse Reaction (Verified 10/16/17 15:35) Sulfa (Sulfonamide Antibiotics) Adverse Reaction (Verified 10/16/17 15:35) tramadol HCl [From Ultram] Adverse Reaction (Verified 10/16/17 15:35) trimethoprim [From Bactrim] Adverse Reaction (Verified 10/16/17 15:35) paper tape Adverse Reaction (Uncoded 07/09/17 15:21) Home Medications: Ambulatory Orders Topiramate [Topamax] 50 mg PO BID 01/24/13 Aspirin [Aspirin EC] 325 mg PO DAILY 11/03/13 Pantoprazole Sodium [Protonix] 40 mg PO BID 06/10/14 Insulin Lispro [Humalog] 10 unit SUBCUT QID 07/22/14 Multivitamin [One Daily Multivitamin] 1 each PO DAILY 01/03/16 Cetirizine HCl [Zyrtec] 10 mg PO DAILY PRN 11/23/16 Hydrocodone/Acetaminophen [[place] 7.5-325 Tablet] 10 mg PO Q6HR PRN 12/19/16 Insulin NPH Human Isophane [Humulin N Kwikpen] 10 unit SQ BEDTIME 04/30/17 Hydroxyzine HCl 25 mg PO TID 08/04/17 Prazosin HCl 1 mg PO BEDTIME 09/19/17 Diphenoxylate HCl/Atropine [Lomotil 2.5-0.025 mg Tablet] 1 each PO 1-3XD #7 tablet 09/21/17
== END 2017-10-16 16:14 | disposition home or self-care (01) ==
LOC: ED 15:23
DX: S90.464A Insect bite (nonvenomous), right lesser toe(s), initial encounter (principal); W57.XXXA Bitten or stung by nonvenomous insect and other nonvenomous arthropods, initial encounter
CPT/HCPCS: 99282

== ENCOUNTER 2017-10-28 18:51 | Emergency (ER) ==
[2017-10-28 19:03] VITALS: BP 139/91; TEMP 99.1; BMI 27.1
[2017-10-28] MEDS ORDERED: DUONEB NEB STA (19:30)
--- NOTE | 2017-10-28 19:31 | ED.PDOC ---
General ED Provider: Dr. SUNITA WATKINS Chief Complaint: Shortness of Air Stated Complaint: 1 week history of increased trouble breathing, cough productive of green sputum, with chest tight worse with breathing. Out of Nebulizer. Time Seen by Physician: 19:31 Mode of Arrival: Wheelchair Information Source: Patient, Family Exam Limitations: No limitations Primary Care Provider: FLAKITA MCALLISTER Nursing and Triage Documentation Reviewed and Agree: Yes Reviewed sepsis parameters & appropriate labs ordered?: No System Inflammatory Response Syndrome: Pulse >90 BPM Sepsis Protocol: For patient's 13 years and over: Temp is 96.8 and below OR 101 and greater Pulse >90 BPM Resp >20/minute Acutely Altered Mental Status Are patient's symptoms suggestive of a new infection, such as: -Pneumonia -Skin, Soft Tissue -Endocarditis -UTI -Bone, Joint Infection -Implantable Device -Acute Abdominal Infection -Wound Infection -Meningitis -Blood Stream Catheter Infection -Unknown System Inflammatory Response Syndrome: Not Applicable Cardiovascular Complaint Exam - Chest Pain Complaint/Exam Onset: Gradual Duration: 1 week Symptoms Are: Still present Timing: Constant Length of Chest Pain Episodes: intermitent only with cough Initial Severity: Mild Current Severity: Moderate Location: Reports: Left anterior, Right anterior Pain Radiates: Reports: None Character: Reports: Tightness Aggravating: Reports: None Alleviating: Reports: None Associated Signs and Symptoms: Reports: Cough, Short of air. Denies: Nausea, Vomiting, Fever, Palpitations, Hemoptysis, Back pain, Abdominal pain, Dizziness , Calf pain, Calf swelling AMI/ACS Risk Factors: Reports: None TAD Risk Factors: Reports: None Pulmonary Embolism Risk Factors: Reports: None Prior Care for this Complaint: No Recent Stress Test: No Recent Echo/LV Function: No JVD Present: No Subcutaneous Emphysema Present: No Diminshed Breath Sounds: Yes Reproducible Chest Wall Pain: No Bilateral Pulses Present: No Unequal Pulses Noted: No If Risk Factors for AMI/ACS Consider: EKG, Cardiac Enzymes Differential Diagnoses: Acute MA, Lower Resp. Infection, Other (bronchitis ) Quality Indicator For Non-Traumatic Chest Pain/Syncope: EKG Performed Review of Systems - Review Of Systems Constitutional: Denies: Loss of appetite Eyes: Reports: No symptoms Ears, Nose, Mouth, Throat: Reports: No symptoms Respiratory: Reports: Cough, Short of air, Wheezing Cardiac: Reports: Chest pain GI: Reports: No symptoms : Reports: No symptoms Musculoskeletal: Reports: No symptoms Skin: Reports: No symptoms Neurological: Reports: Anxiety Endocrine: Reports: No symptoms Hematologic/Lymphatic: Reports: No symptoms All Other Systems: Reviewed and Negative Past Medical History - Past Medical History Previously Healthy: No Endocrine: Reports: DM 2, Dyslipidemia Cardiovascular: Reports: CAD, MA, Hypertension, CHF, A-Fib Respiratory: Reports: COPD, Asthma Hematological: Reports: None Gastrointestinal: Reports: GERD, Diverticulitis, Other Genitourinary: Reports: Kidney stones, Other Neuro/Psych: Reports: Migraine, Seizure, Anxiety, Depression, Bipolar Disorder, Schizophrenia Musculoskeletal: Reports: Arthritis, Back Pain Cancer: Reports: Breast Last Menstrual Period: hysterectomy Other Pertinent Past Medical History: IBS, PARANOID SCHIZOPHRENIA,ENDOMETRIOSIS - Surgical History General Surgical History: Reports: Hysterectomy, Tubal ligation, Cholecystectomy , Tonsillectomy, Orthopedic, Hernia Repair, Other - Family History Family History: Reports: Unknown - Social History Smoking Status: Current every day smoker, Heavy tobacco smoker Hx Substance Use: No Alcohol Screening: None - Immunizations Tetanus Shot up to Date: Yes Physical Exam - Physical Exam Appearance: Ill-appearing Ill-appearing: Mild Pain Distress: Mild Eyes: HANH, EOMI, Conjunctiva clear ENT: Ears normal, Nose normal, Oropharynx normal Neck: Supple Respiratory: Breath sounds diminished Cardiovascular: Tachycardia GI/: Soft, Nontender, No masses, Bowel sounds normal, No Organomegaly Musculoskeletal: Normal strength, ROM intact, No edema, No calf tenderness Skin: Warm, Dry, Normal color Neurological: Sensation intact, Motor intact, Cranial nerves intact, Alert, Oriented Psychiatric: Anxious Interpretation - Radiology Interpretation Radiology Interpretation By: Radiologist Radiology Results: Negative Exam Interpreted: Portable CXR - EKG Interpretation Time of EKG #1: 19:38 Rate: Tachy Rhythm: Sinus Ectopy: None [place]: [place] Interpretation: sinus Tachycardia. Critical Care Note - Critical Care Note Total Time (mins): 0 Course - Course Hematology/Chemistry: 10/28/17 19:35 10/28/17 19:35 Orders, Labs, Meds: Lab Review 10/28/17 10/28/17 10/28/17 19:35 19:35 19:35 WBC 6.73 RBC 4.78 Hgb 14.4 Hct 39.0 MCV 81.6 MCH 30.1 MCHC 36.9 H RDW Coeff of Yanet 12.5 Plt Count 150 Immature Gran % (Auto) 0.7 Neut % (Auto) 52.1 Lymph % (Auto) 35.8 [place] % (Auto) 10.4 H Eos % (Auto) 0.6 Baso % (Auto) 0.4 Immature Gran # (Auto) 0.1 Neut # (Auto) 3.5 Lymph # (Auto) 2.4 [place] # (Auto) 0.7 Eos # (Auto) 0.0 Baso # (Auto) 0.0 Sodium 133 L Potassium 4.2 Chloride 94 L Carbon Dioxide 26 Anion Gap 17.2 BUN 7 Creatinine 0.84 Estimated GFR (MDRD) 71.00 BUN/Creatinine Ratio 8.33 Glucose 405 H Lactic Acid Calcium 9.4 Total Bilirubin 0.4 AST 9 L ALT 9 L Alkaline Phosphatase 145 H Total Creatine Kinase 18 Troponin I 0.0230 B-Natriuretic Peptide 18 Total Protein 7.0 Albumin 3.3 L Globulin 3.7 Albumin/Globulin Ratio 0.89 Procalcitonin Influ A Molecular Assay Influ B Molecular Assay 10/28/17 10/28/17 10/28/17 19:35 19:35 19:35 WBC RBC Hgb Hct MCV MCH MCHC RDW Coeff of [place] Plt Count Immature Gran % (Auto) Neut % (Auto) Lymph % (Auto) [place] % (Auto) Eos % (Auto) Baso % (Auto) Immature Gran # (Auto) Neut # (Auto) Lymph # (Auto) [place] # (Auto) Eos # (Auto) Baso # (Auto) Sodium Potassium Chloride Carbon Dioxide Anion Gap BUN Creatinine Estimated GFR (MDRD) BUN/Creatinine Ratio Glucose Lactic Acid 16.3 Calcium Total Bilirubin AST ALT Alkaline Phosphatase Total Creatine Kinase Troponin I B-Natriuretic Peptide Total Protein Albumin Globulin Albumin/Globulin Ratio Procalcitonin < 0.05 Influ A Molecular Assay Negative by naat Influ B Molecular Assay Negative by naat Orders Category Date Time Status EKG-(ED ONLY) Stat CARDIO 10/28/17 19:16 Ordered NEBULIZER TREATMENT Stat CARDIO 10/28/17 19:31 Ordered ED MANAGER LOCAL APPLIED .ONCE EMERGENCY 10/28/17 19:16 Active ED IV/MEDIPORT/POWERPORT .ONCE EMERGENCY 10/28/17 19:16 Active B-TYPE NATRIURETIC PEPTIDE Stat LAB 10/28/17 19:35 Completed BLOOD CULTURE (ED ONLY) Stat LAB 10/28/17 19:35 Received CBC W/ AUTO DIFF Stat LAB 10/28/17 19:35 Completed COMPREHENSIVE METABOLIC PANEL Stat LAB 10/28/17 19:35 Completed CREATINE KINASE Stat LAB 10/28/17 19:35 Completed FLU A/B MOLECULAR Stat LAB 10/28/17 19:35 Completed LACTIC ACID Stat LAB 10/28/17 19:35 Completed PROCALCITONIN Stat LAB 10/28/17 19:35 Completed RAPID STREP SCREEN [MOLECULAR GROUP A STREP] Stat LAB 10/28/17 19:35 Completed SPUTUM CULTURE Stat LAB 10/28/17 19:56 Uncollected TROPONIN I Stat LAB 10/28/17 19:35 Completed 0.9 % Sodium Chloride [Saline Flush] MEDS 10/28/17 19:16 Ordered 1 syr IVF PRN PRN Ipratropium/Albuterol Neb [Duoneb] MEDS 10/28/17 19:30 Discontinued 1 vial NEB ONCE STA Prednisone MEDS 10/28/17 19:57 Discontinued 40 mg PO ONCE STA CHEST, 2 VIEWS PA & LAT Stat RADS 10/28/17 19:16 Completed Medications Generic Name Dose Route Start Last Admin Trade Name Freq PRN Reason Stop Dose Admin Sodium Chloride 1 syr 10/28/17 19:16 Saline Flush IVF PRN PRN To flush IV Discontinued Medications Generic Name Dose Route Start Last Admin Trade Name Freq PRN Reason Stop Dose Admin Albuterol/Ipratropium 1 vial 10/28/17 19:30 10/28/17 19:41 Duoneb NEB 10/28/17 19:31 1 vial ONCE STA Administration Prednisone 40 mg 10/28/17 19:57 10/28/17 20:06 Prednisone PO 10/28/17 19:58 Not Given ONCE STA Vital Signs: Temp Pulse Resp BP Pulse Ox 10/28/17 18:55 99.1 F 113 H 20 139/91 H 93 L KAILA Risk Score Age >/= 65: No >/= 3 CAD Risk Factors: Yes Known CAD (Stenosis >/= 50%): Yes ASA Use in Past 7 Days: Yes Severe Angina (>/= 2 episodes in 24 hours): No EKG ST Changes >/= 0.5mm: No Postive Cardiac Marker: No KAILA Total Score: 3 KAILA Risk Score: Risk Score Odds of by 30D 0 0.1 (0.1-0.2) 1 0.3 (0.2-0.3) 2 0.4 (0.3-0.5) 3 0.7 (0.6-0.9) 4 1.2 (1.0-1.5) 5 2.2 (1.9-2.6) 6 3.0 (2.5-3.6) 7 4.8 (3.8-6.1) Departure - Departure Time of Disposition: 20:32 Disposition: HOME SELF-CARE Discharge Problem: Acute bronchitis Qualifiers: Bronchitis organism: other organism Qualified Code(s): J20.8 - Acute bronchitis due to other specified organisms Instructions: Acute Bronchitis (ED), How to Stop Smoking (ED) Condition: Stable Pt referred to PMD for follow-up: Yes IPMP verified?: No Additional Instructions: Quit Smoking Take medications as prescribed Follow up with PCP in 3 days Prescriptions: Azithromycin [Zithromax] 250 mg PO DIRECTED #6 tablet Allergies/Adverse Reactions: Allergies carbamazepine [From Tegretol] Adverse Reaction (Verified 10/16/17 15:35) chlorpromazine HCl [From Thorazine] Adverse Reaction (Verified 10/16/17 15:35) cyclobenzaprine [From Flexeril] Adverse Reaction (Verified 10/16/17 15:35) dexamethasone [From Decadron] Adverse Reaction (Verified 10/16/17 15:35) dexamethasone sod phosphate [From Decadron] Adverse Reaction (Verified 10/16/17 15:35) dextromethorphan HBr [From Vicks Nature Fusion Cough] Adverse Reaction ( Verified 10/16/17 15:35) hydromorphone [From Dilaudid] Adverse Reaction (Verified 10/16/17 15:35) hydroxyzine HCl [From Vistaril] Adverse Reaction (Verified 10/16/17 15:35) hydroxyzine pamoate [From Vistaril] Adverse Reaction (Verified 10/16/17 15:35) insulin detemir [From Levemir] Adverse Reaction (Verified 10/16/17 15:35) insulin glargine,hum.rec.anlog [From Lantus] Adverse Reaction (Verified 15:35) Iodinated Contrast- Oral and IV Dye Adverse Reaction (Verified 10/16/17 15:35) lorazepam [From Ativan] Adverse Reaction (Verified 03/11/18 15:35) meperidine [From Demerol] Adverse Reaction (Verified 10/16/17 15:35) metformin Adverse Reaction (Verified 10/16/17 15:35) methylprednisolone [From Medrol] Adverse Reaction (Verified 10/16/17 15:35) nitrofurantoin [From Macrobid] Adverse Reaction (Verified 10/16/17 15:35) nitrofurantoin macrocrystal [From Macrobid] Adverse Reaction (Verified 10/16/17 15:35) Penicillins Adverse Reaction (Verified 10/16/17 15:35) phenytoin sodium [From Dilantin] Adverse Reaction (Verified 10/16/17 15:35) phenytoin sodium extended [From Dilantin] Adverse Reaction (Verified 10/16/17 15 :35) prednisone Adverse Reaction (Verified 10/16/17 15:35) promethazine [From Phenergan] Adverse Reaction (Verified 10/16/17 15:35) Sulfa (Sulfonamide Antibiotics) Adverse Reaction (Verified 10/16/17 15:35) tramadol HCl [From Ultram] Adverse Reaction (Verified 10/16/17 15:35) trimethoprim [From Bactrim] Adverse Reaction (Verified 10/16/17 15:35) paper tape Adverse Reaction (Uncoded 07/09/17 15:21) Home Medications: Ambulatory Orders Aspirin [Aspirin EC] 325 mg PO DAILY 11/03/13 Pantoprazole Sodium [Protonix] 40 mg PO BID 06/10/14 Insulin Lispro [Humalog] 10 unit SUBCUT TID 07/22/14 Multivitamin [One Daily Multivitamin] 1 each PO DAILY 01/03/16 Cetirizine HCl [Zyrtec] 10 mg PO DAILY PRN 11/23/16 Hydrocodone/Acetaminophen [[place] 7.5-325 Tablet] 10 mg PO BID 12/19/16 Insulin NPH Human Isophane [Humulin N Kwikpen] 10 unit SQ BEDTIME 04/30/17 Hydroxyzine HCl 25 mg PO TID 08/04/17 Prazosin HCl 1 mg PO BEDTIME 09/19/17 Albuterol Sulfate [Proair Hfa] 2 puff IH BID 10/28/17 Azithromycin [Zithromax] 250 mg PO DIRECTED #6 tablet 10/28/17 Fluticasone Propionate [Flonase] 1 sprays(dnu) MICHELLE BID PRN 10/28/17 Tiotropium [place] [Spiriva] 1 cap IH DAILY 10/28/17 Disposition Discussed With: Patient, Family
[2017-10-28] MEDS ORDERED: PREDNISONE PO STA (19:57)
--- NOTE | 2017-10-28 20:18 | DI ---
Exam: Two x-rays of the chest. Comparison: 08/04/2017. Reason for exam: Chest tightness. FINDINGS: No pneumothorax, pleural effusion, or focal consolidation. Similar appearing ground-glass nodularity in the right hemithorax not significantly changed since 2010. The cardiac silhouette is n ot enlarged. Impression: No acute cardiopulmonary process.
== END 2017-10-28 20:41 | disposition home or self-care (01) ==
LOC: ED 18:51
DX: J20.9 Acute bronchitis, unspecified (principal); R06.02 Shortness of breath; E11.9 Type 2 diabetes mellitus without complications; E78.5 Hyperlipidemia, unspecified; I25.2 Old myocardial infarction; I25.10 Atherosclerotic heart disease of native coronary artery without angina pectoris; I10 Essential (primary) hypertension; J44.9 Chronic obstructive pulmonary disease, unspecified; F17.210 Nicotine dependence, cigarettes, uncomplicated; Z79.899 Other long term (current) drug therapy
CPT/HCPCS: 36415; 80053; 82550; 83605; 83880; 84145; 84484; 85025; 87040; 87502; 87651; 93005; 93010; 94640; 99283

== ENCOUNTER 2017-12-30 16:05 | Emergency (ER) ==
[2017-12-30 16:26] VITALS: BP 110/70; TEMP 97.8; BMI 28.1
--- NOTE | 2017-12-30 17:03 | CT ---
EXAM: CT abdomen and pelvis without contrast HISTORY: Abdominal pain since this morning TECHNIQUE: Multi-slice transaxial helical with coronal and sagittal reformed images COMPARISON: CT abdomen from 09/21/2017 FINDINGS: The heart is mildly enlarged. A pericardial effusion surrounding the heart persist since t he prior study with a maximal thickness adjacent to the free wall of the left ventricle of 7 mm. Tra ce pleural effusions layer dependently. Minimal dependent atelectasis is noted. The hepatic attenuation is normal relative to the spleen. The gallbladder is surgically absent witho ut biliary dilatation. The pancreas and adrenal glands are normal. The spleen has normal size and a ttenuation. The kidneys have normal size and attenuation. Two 1 mm calculi are suggested at the interpolar regio n of the right kidney on the coronal views only. No ureterolithiasis or ureteral pelvicaliectasis ar e appreciated. The nonopacified bladder is normal. The uterus is absent and there are no suspicious adnexal masses. Small bowel loops are minimally dilated without distension or transition point. The large bowel has normal caliber. The appendix is not visualized and is likely surgically absent. There are diverticu la in the descending and sigmoid colon without CT evidence of diverticulitis. There are no secondary features of acute appendicitis. The aorta is atherosclerotic with normal caliber. No lymphadenopat hy or ascites. The bones are free of suspicious osteolytic or osteoblastic lesions. IMPRESSION: 1. Possible ileus and/or enteritis. Nonobstructive intestinal gas pattern. 2. Mild cardiomegaly with small pericardial effusion and trace pleural effusions. 3. Normal renal collecting systems. Nonobstructing right nephrolithiasis. 4. ASCVD. 5. Nonobstructive intestinal gas pattern. Colonic diverticulosis without CT evidence of diverticuli tis.
--- NOTE | 2017-12-30 17:51 | ED.PDOC ---
General ED Provider: Dr. SAMIA SILVA Chief Complaint: Abdominal Pain Stated Complaint: ABDOMINAL PAIN Time Seen by Physician: 16:10 Mode of Arrival: Walk-In Information Source: Patient Exam Limitations: No limitations Primary Care Provider: FLAKITA MCALLISTER Nursing and Triage Documentation Reviewed and Agree: Yes Reviewed sepsis parameters & appropriate labs ordered?: Yes System Inflammatory Response Syndrome: Not Applicable Sepsis Protocol: For patient's 13 years and over: Temp is 96.8 and below OR 101 and greater Pulse >90 BPM Resp >20/minute Acutely Altered Mental Status Are patient's symptoms suggestive of a new infection, such as: -Pneumonia -Skin, Soft Tissue -Endocarditis -UTI -Bone, Joint Infection -Implantable Device -Acute Abdominal Infection -Wound Infection -Meningitis -Blood Stream Catheter Infection -Unknown System Inflammatory Response Syndrome: Not Applicable GI Complaint Exam - Abdominal Pain Complaint/Exam Onset: Gradual Duration: 1 DAY Symptoms Are: Resolved Timing: Intermittent Initial Severity: Mild Current Severity: None Location of Pain: Diffuse Character: Reports: Cramping Aggravating: Reports: Food Alleviating: Reports: None, Bowel movement. Denies: Vomiting Associated Signs and Symptoms: Reports: Diarrhea. Denies: Diaphoresis, Fever, Cough, Chest pain, Dizziness, Back pain, Constipation, Blood in stool, Dysuria, Urinary frequency, Decreased urine output, Decreased appetite, Vaginal bleeding , Vaginal discharge, Nausea, Vomiting, Sore throat, Decreased activity Related History: Reports: Similar episode AAA Risk Factors: Reports: Smoking, Hypertension Cardiac Risk Factors: Reports: Hypertension, Elevated lipids, CAD Ectopic Risk Factors: Reports: None Ovarian Torsion Risk Factors: Reports: None Surgical Obstruction Risk Factors: Reports: None Related Surgical History: Reports: None Patient Rh Status: Unknown Abdominal Findings: Present: None Differential Diagnoses: Appendicitis, Bowel Obstruction, Constipation, Diverticulitis, Gastroenteritis, Irritable Bowel Syndrome Review of Systems - Review Of Systems Constitutional: Reports: No symptoms Eyes: Reports: No symptoms Ears, Nose, Mouth, Throat: Reports: No symptoms Respiratory: Reports: No symptoms Cardiac: Reports: No symptoms GI: Reports: Abdominal pain, Diarrhea, Poor appetite : Reports: No symptoms Musculoskeletal: Reports: No symptoms Skin: Reports: No symptoms Neurological: Reports: No symptoms Endocrine: Reports: No symptoms Hematologic/Lymphatic: Reports: No symptoms All Other Systems: Reviewed and Negative Past Medical History - Past Medical History Previously Healthy: No Endocrine: Reports: DM 2, Dyslipidemia Cardiovascular: Reports: CAD, [place], Hypertension, CHF, A-Fib Respiratory: Reports: COPD, Asthma Hematological: Reports: None Gastrointestinal: Reports: GERD, Diverticulitis, Other Genitourinary: Reports: Kidney stones, Other Neuro/Psych: Reports: Migraine, Seizure, Anxiety, Depression, Bipolar Disorder, Schizophrenia Musculoskeletal: Reports: Arthritis, Back Pain Cancer: Reports: Breast Last Menstrual Period: hysterectomy Other Pertinent Past Medical History: IBS, PARANOID SCHIZOPHRENIA,ENDOMETRIOSIS - Surgical History General Surgical History: Reports: Hysterectomy, Tubal ligation, Cholecystectomy , Tonsillectomy, Orthopedic, Hernia Repair, Other - Family History Family History: Reports: Unknown - Social History Smoking Status: Current every day smoker, Heavy tobacco smoker Hx Substance Use: No Alcohol Screening: None Physical Exam - Physical Exam Appearance: Well-appearing, No pain distress, Well-nourished Eyes: HANH, EOMI, Conjunctiva clear ENT: Ears normal, Nose normal, Oropharynx normal Respiratory: Airway patent, Breath sounds clear, Breath sounds equal, Respirations nonlabored Cardiovascular: RRR, Pulses normal, No rub, No murmur GI/: Soft, Nontender, No masses, Bowel sounds normal, No Organomegaly Musculoskeletal: Normal strength, ROM intact, No edema, No calf tenderness Skin: Warm, Dry, Normal color Neurological: Sensation intact, Motor intact, Reflexes intact, Cranial nerves intact, Alert, Oriented Psychiatric: Affect appropriate, Mood appropriate Interpretation - Radiology Interpretation Radiology Interpretation By: Radiologist Radiology Results: No acute changes Critical Care Note - Critical Care Note Total Time (mins): 0 Course - Course Hematology/Chemistry: 12/30/17 17:00 12/30/17 17:00 Orders, Labs, Meds: Lab Review 12/30/17 12/30/17 17:00 17:00 WBC 9.55 RBC 4.77 Hgb 14.5 Hct 40.0 MCV 83.9 MCH 30.4 MCHC 36.3 H RDW Coeff of Yanet 12.7 Plt Count 149 Immature Gran % (Auto) 1.0 Neut % (Auto) 58.9 Lymph % (Auto) 31.0 [place] % (Auto) 7.1 Eos % (Auto) 1.6 Baso % (Auto) 0.4 Immature Gran # (Auto) 0.1 Neut # (Auto) 5.6 Lymph # (Auto) 3.0 [place] # (Auto) 0.7 Eos # (Auto) 0.2 Baso # (Auto) 0.0 Sodium 135 L Potassium 4.2 Chloride 94 L Carbon Dioxide 27 Anion Gap 18.2 BUN 8 Creatinine 0.80 Estimated GFR (MDRD) 75.00 BUN/Creatinine Ratio 10.00 Glucose 199 H Calcium 9.6 Total Bilirubin 0.3 AST 7 L ALT 6 L Alkaline Phosphatase 115 H Total Protein 7.5 Albumin 3.5 Globulin 4.0 Albumin/Globulin Ratio 0.88 Amylase 23 L Lipase 22 Orders Category Date Time Status AMYLASE Stat LAB 12/30/17 17:00 Completed CBC W/ AUTO DIFF Stat LAB 12/30/17 17:00 Completed COMPREHENSIVE METABOLIC PANEL Stat LAB 12/30/17 17:00 Completed LIPASE Stat LAB 12/30/17 17:[address] ABDOMEN/PELVIS WO CONTRAST Stat RADS 12/30/17 16:17 Completed Vital Signs: Temp Pulse Resp BP Pulse Ox 12/30/17 16:06 97.8 F 101 H 20 110/70 93 L Departure - Departure Time of Disposition: 17:51 Disposition: HOME SELF-CARE Discharge Problem: Abdominal pain, Acute gastroenteritis Instructions: Gastroenteritis (DC) Condition: Good Pt referred to PMD for follow-up: Yes IPMP verified?: No Additional Instructions: Please call your Family Physician as soon as possible to schedule a follow-up appointment. Allergies/Adverse Reactions: Allergies dexamethasone sod phosphate [From Decadron] Adverse Reaction (Verified 10/16/17 15:35) dextromethorphan HBr [From Vicks Nature Fusion Cough] Adverse Reaction ( Verified 10/16/17 15:35) hydromorphone [From Dilaudid] Adverse Reaction (Verified 10/16/17 15:35) hydroxyzine pamoate [From Vistaril] Adverse Reaction (Verified 10/16/17 15:35) insulin detemir [From Levemir] Adverse Reaction (Verified 10/16/17 15:35) insulin glargine,hum.rec.anlog [From Lantus] Adverse Reaction (Verified 15:35) Iodinated Contrast- Oral and IV Dye Adverse Reaction (Verified 10/16/17 15:35) lorazepam [From Ativan] Adverse Reaction (Verified 10/16/17 15:35) meperidine [From Demerol] Adverse Reaction (Verified 10/16/17 15:35) metformin Adverse Reaction (Verified 10/16/17 15:35) methylprednisolone [From Medrol] Adverse Reaction (Verified 10/16/17 15:35) nitrofurantoin [From Macrobid] Adverse Reaction (Verified 10/16/17 15:35) nitrofurantoin macrocrystal [From Macrobid] Adverse Reaction (Verified 10/16/17 15:35) Penicillins Adverse Reaction (Verified 10/16/17 15:35) phenytoin sodium [From Dilantin] Adverse Reaction (Verified 10/16/17 15:35) prednisone Adverse Reaction (Verified 10/16/17 15:35) promethazine [From Phenergan] Adverse Reaction (Verified 10/16/17 15:35) Sulfa (Sulfonamide Antibiotics) Adverse Reaction (Verified 10/16/17 15:35) tramadol HCl [From Ultram] Adverse Reaction (Verified 10/16/17 15:35) trimethoprim [From Bactrim] Adverse Reaction (Verified 10/16/17 15:35) paper tape Adverse Reaction (Uncoded 07/09/17 15:21) Home Medications: Ambulatory Orders Aspirin [Aspirin EC] 325 mg PO DAILY 11/03/13 Pantoprazole Sodium [Protonix] 40 mg PO BID 06/10/14 Insulin Lispro [Humalog] 10 unit SUBCUT TID 07/22/14 Multivitamin [One Daily Multivitamin] 1 each PO DAILY 01/03/16 Cetirizine HCl [Zyrtec] 10 mg PO DAILY PRN 11/23/16 Hydrocodone/Acetaminophen [[place] 7.5-325 Tablet] 10 mg PO BID 12/19/16 Insulin NPH Human Isophane [Humulin N Kwikpen] 10 unit SQ BEDTIME 04/30/17 Hydroxyzine HCl 25 mg PO TID 08/04/17 Prazosin HCl 1 mg PO BEDTIME 09/19/17 Albuterol Sulfate [Proair Hfa] 2 puff IH BID 10/28/17 Fluticasone Propionate [Flonase] 1 sprays(dnu) MICHELLE BID PRN 10/28/17 Tiotropium [place] [Spiriva] 1 cap IH DAILY 10/28/17
== END 2017-12-30 18:17 | disposition home or self-care (01) ==
LOC: ED 16:05
DX: K52.9 Noninfective gastroenteritis and colitis, unspecified (principal); R10.84 Generalized abdominal pain; I10 Essential (primary) hypertension; E78.5 Hyperlipidemia, unspecified; I25.10 Atherosclerotic heart disease of native coronary artery without angina pectoris; E11.9 Type 2 diabetes mellitus without complications; I25.2 Old myocardial infarction; F17.210 Nicotine dependence, cigarettes, uncomplicated; Z87.19 Personal history of other diseases of the digestive system; Z79.899 Other long term (current) drug therapy
CPT/HCPCS: 36415; 80053; 82150; 83690; 85025; 99283

== ENCOUNTER 2018-01-30 08:19 | Outpatient (CLI) ==
[2013-01-24 14:52] VITALS: TEMP 98.1
== END 2018-01-30 08:20 | disposition home or self-care (01) ==
LOC: LAB 08:19
PROVIDERS: ATTEND Physician Assistant
DX: R10.13 Epigastric pain (principal); K92.2 Gastrointestinal hemorrhage, unspecified
CPT/HCPCS: 36415; 80053; 82150; 83690; 85027

== ENCOUNTER 2018-02-28 15:30 | Outpatient (CLI) ==
[2013-01-24 14:52] VITALS: TEMP 98.1
--- NOTE | 2018-03-01 09:19 | DI ---
EXAM: Left foot three view HISTORY: Pain in left foot COMPARISON: 11/03/2013 FINDINGS: No fracture or dislocation. Mild osteoarthritis first MTP joint with joint space narrowin g osteophyte formation. Mild scattered osteoarthritis of the interphalangeal joints and midfoot. No focal soft tissue abnormality. IMPERSSION: Mild osteoarthritis.
== END 2018-02-28 15:31 | disposition home or self-care (01) ==
LOC: RAD 15:30
PROVIDERS: ATTEND Family Medicine
DX: M79.672 Pain in left foot (principal)

== ENCOUNTER 2018-03-10 16:49 | Emergency (ER) ==
[2018-03-10 16:54] VITALS: BP 00/00; TEMP 98; BMI 26.2
--- NOTE | 2018-03-10 18:26 | ED.PDOC ---
General ED Provider: Dr. SAMIA SILVA Chief Complaint: Seizure Stated Complaint: headache Time Seen by Physician: 17:00 (has had seziures at home arrived AOX3 ) Mode of Arrival: Walk-In Information Source: Patient Exam Limitations: No limitations Primary Care Provider: FLAKITA MCALLISTER Nursing and Triage Documentation Reviewed and Agree: Yes Does patient meet sepsis criteria?: No System Inflammatory Response Syndrome: Not Applicable Sepsis Protocol: For patient's 13 years and over: Temp is 96.8 and below OR 101 and greater Pulse >90 BPM Resp >20/minute Acutely Altered Mental Status Are patient's symptoms suggestive of a new infection, such as: -Pneumonia -Skin, Soft Tissue -Endocarditis -UTI -Bone, Joint Infection -Implantable Device -Acute Abdominal Infection -Wound Infection -Meningitis -Blood Stream Catheter Infection -Unknown Neurological Complaint Exam - Headache Complaint/Exam Onset: Gradual Duration: TODAY Symptoms Are: Resolved Timing: Intermittent Episodes Lasting: Hours Worst Headache Ever: No Initial Severity: Moderate Current Severity: Mild Location: Diffuse Character: Reports: Typical headache Aggravating: Reports: None Alleviating: Reports: None Associated Signs and Symptoms: Denies: Dizziness, Seizure, Nausea, Vomiting, Sinus pressure, Fever, Neck pain, Neck stiffness, Decreased LOC, Visual changes Related History: Reports: Similar episode Related Surgical History: Reports: None SAH Risk Factors: Reports: Smoking, Hypertension Meningitis Risk Factors: Reports: None SDH Risk Factors: Reports: None Temporal Arteritis Risk Factors: Reports: Female, Normal Head CT Within Last 12 Months: Yes Fundoscopic Exam: Present: Normal Findings Papilledema Present: No Temporal Artery Tenderness: Present: None Sinus Tenderness: Present: None TMJ Tenderness: Present: None Glascow Coma Scale (see protocol): 15 Meningeal Signs Positive: No Pain on Passive Flexion-Positive Kernig's: No ROM Limited In: No Limitiations Focal Weakness: Present: None Focal Sensory Loss: Present: None Gait: Normal Nystagmus Present: No Gag Reflex Present: Yes [id number]: Normal Findings Babinski Sign: Negative Right, Negative Left Differential Diagnoses: Migraine Review of Systems - Review Of Systems Constitutional: Reports: No symptoms Eyes: Reports: No symptoms Ears, Nose, Mouth, Throat: Reports: No symptoms Respiratory: Reports: No symptoms Cardiac: Reports: No symptoms GI: Reports: No symptoms : Reports: No symptoms Musculoskeletal: Reports: No symptoms Skin: Reports: No symptoms Neurological: Reports: Headache Endocrine: Reports: No symptoms Hematologic/Lymphatic: Reports: No symptoms All Other Systems: Reviewed and Negative Past Medical History - Past Medical History Previously Healthy: No Endocrine: Reports: DM 2, Dyslipidemia Cardiovascular: Reports: CAD, OR, Hypertension, CHF, A-Fib Respiratory: Reports: COPD, Asthma Hematological: Reports: None Gastrointestinal: Reports: GERD, Diverticulitis, Other Genitourinary: Reports: Kidney stones, Other Neuro/Psych: Reports: Migraine, Seizure, Anxiety, Depression, Bipolar Disorder, Schizophrenia Musculoskeletal: Reports: Arthritis, Back Pain Cancer: Reports: Breast Last Menstrual Period: N/A Other Pertinent Past Medical History: IBS, PARANOID SCHIZOPHRENIA,ENDOMETRIOSIS - Surgical History General Surgical History: Reports: Hysterectomy, Tubal ligation, Cholecystectomy , Tonsillectomy, Orthopedic, Hernia Repair, Other - Family History Family History: Reports: Unknown - Social History Smoking Status: Current every day smoker, Heavy tobacco smoker Hx Substance Use: No Alcohol Screening: None - Immunizations Tetanus Shot up to Date: No Physical Exam - Physical Exam Appearance: Well-appearing, No pain distress, Well-nourished Eyes: HANH, EOMI, Conjunctiva clear ENT: Ears normal, Nose normal, Oropharynx normal Respiratory: Airway patent, Breath sounds clear, Breath sounds equal, Respirations nonlabored Cardiovascular: RRR, Pulses normal, No rub, No murmur GI/: Soft, Nontender, No masses, Bowel sounds normal, No Organomegaly Musculoskeletal: Normal strength, ROM intact, No edema, No calf tenderness Skin: Warm, Dry, Normal color Neurological: Sensation intact, Motor intact, Reflexes intact, Cranial nerves intact, Alert, Oriented Psychiatric: Affect appropriate, Mood appropriate Critical Care Note - Critical Care Note Total Time (mins): 0 Course - Course Hematology/Chemistry: 03/10/18 17:32 03/10/18 17:32 Orders, Labs, Meds: Lab Review 03/10/18 03/10/18 17:32 17:32 WBC 6.79 RBC 4.17 L Hgb 12.5 Hct 35.2 L MCV 84.4 MCH 30.0 MCHC 35.5 H RDW Coeff of Yanet 12.6 Plt Count 161 Immature Gran % (Auto) 0.7 Neut % (Auto) 34.7 Lymph % (Auto) 53.0 H [place] % (Auto) 9.4 Eos % (Auto) 1.8 Baso % (Auto) 0.4 Immature Gran # (Auto) 0.1 Neut # (Auto) 2.4 Lymph # (Auto) 3.6 H [place] # (Auto) 0.6 Eos # (Auto) 0.1 Baso # (Auto) 0.0 Sodium 134 L Potassium 4.0 Chloride 95 L Carbon Dioxide 29 Anion Gap 14.0 BUN 7 Creatinine 0.77 Estimated GFR (MDRD) 78.00 BUN/Creatinine Ratio 9.09 Glucose 323 H Calcium 9.1 Total Bilirubin 0.3 AST 9 L ALT 9 L Alkaline Phosphatase 134 H Total Protein 6.8 Albumin 3.1 L Globulin 3.7 Albumin/Globulin Ratio 0.84 Orders Category Date Time Status CBC W/ AUTO DIFF Stat LAB 03/10/18 17:32 Completed COMPREHENSIVE METABOLIC PANEL Stat LAB 03/10/18 17:32 Completed Vital Signs: Temp Pulse Resp BP Pulse Ox 03/10/18 16:50 98.0 F 107 H 18 00/00 L 93 L Departure - Departure Time of Disposition: 18:27 Disposition: HOME SELF-CARE Discharge Problem: Seizure Headache Qualifiers: Headache chronicity pattern: unspecified pattern Intractability: not intractable Instructions: Acute Headache (DC), Epilepsy (ED) Condition: Good Pt referred to PMD for follow-up: Yes IPMP verified?: No Additional Instructions: Please call your Family Physician as soon as possible to schedule a follow-up appointment. Allergies/Adverse Reactions: Allergies dexamethasone sod phosphate [From Decadron] Adverse Reaction (Verified 03/10/18 16:55) dextromethorphan HBr [From Vicks Nature Fusion Cough] Adverse Reaction ( Verified 03/10/18 16:55) hydromorphone [From Dilaudid] Adverse Reaction (Verified 03/10/18 16:55) hydroxyzine pamoate [From Vistaril] Adverse Reaction (Verified 03/10/18 16:55) insulin detemir [From Levemir] Adverse Reaction (Verified 03/10/18 16:55) insulin glargine,hum.rec.anlog [From Lantus] Adverse Reaction (Verified 16:55) Iodinated Contrast- Oral and IV Dye Adverse Reaction (Verified 03/10/18 16:55) lorazepam [From Ativan] Adverse Reaction (Verified 03/10/18 16:55) meperidine [From Demerol] Adverse Reaction (Verified 03/10/18 16:55) metformin Adverse Reaction (Verified 03/10/18 16:55) methylprednisolone [From Medrol] Adverse Reaction (Verified 03/10/18 16:55) nitrofurantoin [From Macrobid] Adverse Reaction (Verified 03/10/18 16:55) nitrofurantoin macrocrystal [From Macrobid] Adverse Reaction (Verified 03/10/18 16:55) Penicillins Adverse Reaction (Verified 03/10/18 16:55) phenytoin sodium [From Dilantin] Adverse Reaction (Verified 03/10/18 16:55) prednisone Adverse Reaction (Verified 03/10/18 16:55) promethazine [From Phenergan] Adverse Reaction (Verified 03/10/18 16:55) Sulfa (Sulfonamide Antibiotics) Adverse Reaction (Verified 03/10/18 16:55) tramadol HCl [From Ultram] Adverse Reaction (Verified 03/10/18 16:55) trimethoprim [From Bactrim] Adverse Reaction (Verified 03/10/18 16:55) paper tape Adverse Reaction (Uncoded 03/10/18 16:55) Home Medications: Ambulatory Orders Pantoprazole Sodium [Protonix] 40 mg PO BID 06/10/14 Insulin Lispro [Humalog] 10 unit SUBCUT TID 07/22/14 Multivitamin [One Daily Multivitamin] 1 each PO DAILY 01/03/16 Hydrocodone/Acetaminophen [[place] 7.5-325 Tablet] 10 mg PO BID 12/19/16 Prazosin HCl 1 mg PO BEDTIME 09/19/17 Albuterol Sulfate [Proair Hfa] 2 puff IH BID 10/28/17 Fluticasone Propionate [Flonase] 1 sprays(dnu) MICHELLE BID PRN 10/28/17 Tiotropium [place] [Spiriva] 1 cap IH DAILY 10/28/17 Disposition Discussed With: Patient, Family
== END 2018-03-10 18:40 | disposition home or self-care (01) ==
LOC: ED 16:49
DX: R56.9 Unspecified convulsions (principal); R51 Headache; F17.210 Nicotine dependence, cigarettes, uncomplicated; Z79.899 Other long term (current) drug therapy
CPT/HCPCS: 36415; 80053; 85025; 99283

== ENCOUNTER 2018-04-05 09:28 | Outpatient (CLI) ==
[2013-01-24 14:52] VITALS: TEMP 98.1
--- NOTE | 2018-04-05 10:36 | MAMMO ---
EXAM: Bilateral digital diagnostic mammogram (2-D and 3-D) History: Follow-up bilateral breast calcifications. Comparison: Bilateral mammogram 07/22/2017 Findings: MLO and CC views of bilateral breasts demonstrate scattered fibroglandular breast parenchy ma. Stable probably benign bilateral breast calcifications as previously described. No developing m asses and no suspicious new microcalcifications. Impression: Stable probably benign bilateral breast calcifications. Recommend 6-month follow-up [facility] mogram to document stability. BIRADS 3
== END 2018-04-05 09:29 | disposition home or self-care (01) ==
LOC: RAD 09:28
PROVIDERS: ATTEND Family Medicine
DX: R92.8 Other abnormal and inconclusive findings on diagnostic imaging of breast (principal)

== ENCOUNTER 2018-05-05 19:55 | Emergency (ER) ==
[2018-05-05] MEDS ORDERED: MORPHINE 2 MG/ML SYRINGE IVP STA (20:05)
[2018-05-05] MEDS ORDERED: ASPIRIN CHEWABLE PO STA (20:05)
[2018-05-05] MEDS ORDERED: ZOFRAN 4 MG/2 ML IVP STA (20:05)
[2018-05-05] MEDS ORDERED: NITROSTAT SL STA (20:05)
[2018-05-05 20:09] VITALS: BP 84/50; TEMP 99.3; BMI 28.1
--- NOTE | 2018-05-05 20:13 | ED.PDOC ---
General ED Provider: Dr. THERESE REYNOLDS-ER Chief Complaint: Chest Pain Stated Complaint: my chest has been hurting off and on all day Time Seen by Physician: 20:00 Mode of Arrival: Wheelchair Information Source: Patient Exam Limitations: No limitations Nursing and Triage Documentation Reviewed and Agree: Yes Does patient meet sepsis criteria?: No System Inflammatory Response Syndrome: Not Applicable Sepsis Protocol: For patient's 13 years and over: Temp is 96.8 and below OR 101 and greater Pulse >90 BPM Resp >20/minute Acutely Altered Mental Status Are patient's symptoms suggestive of a new infection, such as: -Pneumonia -Skin, Soft Tissue -Endocarditis -UTI -Bone, Joint Infection -Implantable Device -Acute Abdominal Infection -Wound Infection -Meningitis -Blood Stream Catheter Infection -Unknown Cardiovascular Complaint Exam - Chest Pain Complaint/Exam Onset: Gradual Duration: several hours Symptoms Are: Still present Timing: Intermittent Initial Severity: Mild Current Severity: Moderate Location: Reports: Discrete Pain Radiates: Reports: Left arm Character: Reports: Burning, Heaviness, Squeezing Aggravating: Reports: None Alleviating: Reports: Nitro, Oxygen Associated Signs and Symptoms: Denies: Diaphoresis, Nausea, Vomiting, Fever, Palpitations, Cough, Hemoptysis, Back pain, Abdominal pain, Dizziness, Short of air, Calf pain, Calf swelling History of Healthcare-Acquired Pneumonia: Reports: No AMI/ACS Risk Factors: Reports: Myocardial Infarction Prior Care for this Complaint: No Recent Stress Test: No Recent Echo/LV Function: No JVD Present: No Subcutaneous Emphysema Present: No Diminshed Breath Sounds: No Reproducible Chest Wall Pain: No Bilateral Pulses Present: Yes Unequal Pulses Noted: No If Risk Factors for AMI/ACS Consider: EKG, Cardiac Enzymes, Oxygen, Aspirin Differential Diagnoses: Acute OK, ACS, Stable Angina Quality Indicators For Acute OK or Cardiac Chest Pain: EKG in 10min. Review of Systems - Review Of Systems Constitutional: Reports: No symptoms Eyes: Reports: No symptoms Ears, Nose, Mouth, Throat: Reports: No symptoms Respiratory: Reports: No symptoms Cardiac: Reports: Chest pain GI: Reports: No symptoms : Reports: No symptoms Musculoskeletal: Reports: No symptoms Skin: Reports: No symptoms Neurological: Reports: No symptoms Endocrine: Reports: No symptoms Hematologic/Lymphatic: Reports: No symptoms All Other Systems: Reviewed and Negative Past Medical History - Past Medical History Previously Healthy: No Endocrine: Reports: DM 2, Dyslipidemia Cardiovascular: Reports: CAD, [place], Hypertension, CHF, A-Fib Respiratory: Reports: COPD, Asthma Hematological: Reports: None Gastrointestinal: Reports: GERD, Diverticulitis, Other Genitourinary: Reports: Kidney stones, Other Neuro/Psych: Reports: Migraine, Seizure, Anxiety, Depression, Bipolar Disorder, Schizophrenia Musculoskeletal: Reports: Arthritis, Back Pain Cancer: Reports: Breast Last Menstrual Period: hysterectomy Other Pertinent Past Medical History: IBS, PARANOID SCHIZOPHRENIA,ENDOMETRIOSIS - Surgical History General Surgical History: Reports: Hysterectomy, Tubal ligation, Cholecystectomy , Tonsillectomy, Orthopedic, Hernia Repair, Other - Family History Family History: Reports: Unknown - Social History Smoking Status: Current every day smoker, Heavy tobacco smoker Hx Substance Use: No Alcohol Screening: None Physical Exam - Physical Exam Appearance: Well-appearing, No pain distress, Well-nourished Pain Distress: Mild Eyes: HANH, EOMI, Conjunctiva clear ENT: Ears normal, Nose normal, Oropharynx normal Neck: Supple Respiratory: Airway patent, Breath sounds clear, Breath sounds equal, Respirations nonlabored Cardiovascular: RRR, Pulses normal, No rub, No murmur GI/: Soft, Nontender, No masses, Bowel sounds normal, No Organomegaly Musculoskeletal: Normal strength, ROM intact, No edema, No calf tenderness Skin: Warm, Dry, Normal color Neurological: Sensation intact, Motor intact, Reflexes intact, Cranial nerves intact, Alert, Oriented Psychiatric: Affect appropriate, Mood appropriate, Anxious Interpretation - EKG Interpretation Time of EKG #1: 20:15 Rate: Normal Rhythm: Sinus Ectopy: None [place]: NL ST Segment: Normal Interpretation: nsr Re-Evaluation - Re-Evaluation Time of Re-Evaluation: 20:21 Status: Improved Vital Signs Stable: Yes Pain Level: 2 Appearance: NAD Lungs: Clear Skin: Warm and Dry Neuro: Alert and Oriented X3 CV: RRR Physician Notification - Case Discussed Physician Notified: dr [email or web address] Time of Notification: 20:21 Critical Care Note - Critical Care Note Total Time (mins): 30 Course - Course Orders, Labs, Meds: Orders Category Date Time Status EKG-(ED ONLY) Stat CARDIO 05/05/18 19:57 Ordered Security 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] .ONCE EMERGENCY 05/05/18 19:58 Active ED IV/MEDIPORT/POWERPORT .ONCE EMERGENCY 05/05/18 19:58 Active AMYLASE Stat LAB 05/05/18 20:16 Received CBC W/ AUTO DIFF Stat LAB 05/05/18 20:16 Received COMPREHENSIVE METABOLIC PANEL Stat LAB 05/05/18 20:16 Received CREATINE KINASE Stat LAB 05/05/18 20:16 Received D-DIMER Stat LAB 05/05/18 20:16 Received FREE T4 (FREE THYROXINE) Stat LAB 05/05/18 20:16 Received LIPASE Stat LAB 05/05/18 20:16 Received THYROID STIMULATING HORMONE Stat LAB 05/05/18 20:16 Received TROPONIN I Stat LAB 05/05/18 20:16 Received 0.9 % Sodium Chloride [Saline Flush] MEDS 05/05/18 19:58 Ordered 1 syr IVF PRN PRN Aspirin [Aspirin Chewable] MEDS 05/05/18 20:05 Discontinued 324 mg PO ONCE STA Morphine Sulfate [Morphine 2 mg/ml Syringe] MEDS 05/05/18 20:05 Discontinued 2 mg IVP ONCE STA Nitroglycerin [Nitrostat] MEDS 05/05/18 20:05 Discontinued 0.4 mg SL ONCE STA Ondansetron HCl/Pf [Zofran 4 mg/2 ml] MEDS 05/05/18 20:05 Discontinued 4 mg IVP ONCE STA Medications Generic Name Dose Route Start Last Admin Trade Name Freq PRN Reason Stop Dose Admin Sodium Chloride 1 syr 05/05/18 19:58 Saline Flush IVF PRN PRN To flush IV Discontinued Medications Generic Name Dose Route Start Last Admin Trade Name Freq PRN Reason Stop Dose Admin Aspirin 324 mg 05/05/18 20:05 Aspirin Chewable PO 05/05/18 20:06 ONCE STA Morphine Sulfate 2 mg 05/05/18 20:05 Morphine 2 Mg/Ml Syringe IVP 05/05/18 20:06 ONCE STA Nitroglycerin 0.4 mg 05/05/18 20:05 Nitrostat SL 05/05/18 20:06 ONCE STA Ondansetron HCl 4 mg 05/05/18 20:05 Zofran 4 Mg/2 Ml IVP 05/05/18 20:06 ONCE STA Vital Signs: Temp Pulse Resp BP Pulse Ox 05/05/18 19:57 99.3 F 109 H 20 84/50 L 95 KAILA Risk Score KAILA Risk Score: Risk Score Odds of by 30D 0 0.1 (0.1-0.2) 1 0.3 (0.2-0.3) 2 0.4 (0.3-0.5) 3 0.7 (0.6-0.9) 4 1.2 (1.0-1.5) 5 2.2 (1.9-2.6) 6 3.0 (2.5-3.6) 7 4.8 (3.8-6.1) Departure - Departure Time of Disposition: 20:22 Disposition: TSF SHORT-TRM HOSP Discharge Problem: Chest pain Instructions: Chest Pain (ED) Condition: Fair Pt referred to PMD for follow-up: Yes IPMP verified?: No Allergies/Adverse Reactions: Allergies dexamethasone sod phosphate [From Decadron] Adverse Reaction (Verified 03/10/18 16:55) dextromethorphan HBr [From Vicks Nature Fusion Cough] Adverse Reaction ( Verified 03/10/18 16:55) hydromorphone [From Dilaudid] Adverse Reaction (Verified 03/10/18 16:55) hydroxyzine pamoate [From Vistaril] Adverse Reaction (Verified 03/10/18 16:55) insulin detemir [From Levemir] Adverse Reaction (Verified 03/10/18 16:55) insulin glargine,hum.rec.anlog [From Lantus] Adverse Reaction (Verified 16:55) Iodinated Contrast- Oral and IV Dye Adverse Reaction (Verified 03/10/18 16:55) lorazepam [From Ativan] Adverse Reaction (Verified 03/10/18 16:55) meperidine [From Demerol] Adverse Reaction (Verified 03/10/18 16:55) metformin Adverse Reaction (Verified 03/10/18 16:55) methylprednisolone [From Medrol] Adverse Reaction (Verified 03/10/18 16:55) nitrofurantoin [From Macrobid] Adverse Reaction (Verified 03/10/18 16:55) nitrofurantoin macrocrystal [From Macrobid] Adverse Reaction (Verified 03/10/18 16:55) Penicillins Adverse Reaction (Verified 03/10/18 16:55) phenytoin sodium [From Dilantin] Adverse Reaction (Verified 03/10/18 16:55) prednisone Adverse Reaction (Verified 03/10/18 16:55) promethazine [From Phenergan] Adverse Reaction (Verified 03/10/18 16:55) Sulfa (Sulfonamide Antibiotics) Adverse Reaction (Verified 03/10/18 16:55) tramadol HCl [From Ultram] Adverse Reaction (Verified 03/10/18 16:55) trimethoprim [From Bactrim] Adverse Reaction (Verified 03/10/18 16:55) paper tape Adverse Reaction (Uncoded 03/10/18 16:55) Home Medications: Ambulatory Orders Pantoprazole Sodium [Protonix] 40 mg PO BID 06/10/14 Insulin Lispro [Humalog] 10 unit SUBCUT TID 07/22/14 Multivitamin [One Daily Multivitamin] 1 each PO DAILY 01/03/16 Hydrocodone/Acetaminophen [[place] 7.5-325 Tablet] 10 mg PO BID 12/19/16 Prazosin HCl 1 mg PO BEDTIME 09/19/17 Albuterol Sulfate [Proair Hfa] 2 puff IH BID 10/28/17 Fluticasone Propionate [Flonase] 1 sprays(dnu) MICHELLE BID PRN 10/28/17 Tiotropium [place] [Spiriva] 1 cap IH DAILY 10/28/17 Transfer Form Completed: Yes Disposition Discussed With: Patient
== END 2018-05-05 20:55 | disposition short-term general hospital (02) ==
LOC: ED 19:55
DX: R07.9 Chest pain, unspecified (principal)
CPT/HCPCS: 36415; 80053; 82150; 82550; 83690; 84439; 84443; 84484; 85025; 85379; 93005; 93010; 96374; 96375; 99285

== ENCOUNTER 2018-05-05 20:57 | Outpatient (CLI) ==
[2013-01-24 14:52] VITALS: TEMP 98.1
[2018-05-05 20:09] VITALS: BMI 28.1
== END 2018-05-05 21:21 | disposition short-term general hospital (02) ==
LOC: AMBL 20:57
PROVIDERS: ATTEND Family Medicine
DX: R07.9 Chest pain, unspecified (principal); R00.0 Tachycardia, unspecified; R11.0 Nausea

== ENCOUNTER 2018-05-28 22:00 | Outpatient (CLI) ==
[2013-01-24 14:52] VITALS: TEMP 98.1
[2018-05-28 23:18] VITALS: BMI 28.6
== END 2018-05-28 22:04 | disposition critical access hospital (66) ==
LOC: AMBL 22:00
PROVIDERS: ATTEND Internal Medicine Geriatric Medicine
DX: R11.2 Nausea with vomiting, unspecified (principal); R19.7 Diarrhea, unspecified; K58.9 Irritable bowel syndrome, unspecified; K57.92 Diverticulitis of intestine, part unspecified, without perforation or abscess without bleeding

== ENCOUNTER 2018-05-28 22:55 | Emergency (ER) ==
[2018-05-28 23:18] VITALS: BMI 28.6
[2018-05-28] MEDS ORDERED: LACTATED RINGERS 1,000 ML IV STA (23:33)
--- NOTE | 2018-05-28 23:33 | ED.PDOC ---
General ED Provider: Dr. SUNITA WATKINS Chief Complaint: Nausea/Vomiting Stated Complaint: I have been vomiting and having diarrhea all evening. Time Seen by Physician: 23:31 Mode of Arrival: Ambulance Information Source: Patient Nursing and Triage Documentation Reviewed and Agree: Yes Does patient meet sepsis criteria?: No System Inflammatory Response Syndrome: Not Applicable Sepsis Protocol: For patient's 13 years and over: Temp is 96.8 and below OR 101 and greater Pulse >90 BPM Resp >20/minute Acutely Altered Mental Status Are patient's symptoms suggestive of a new infection, such as: -Pneumonia -Skin, Soft Tissue -Endocarditis -UTI -Bone, Joint Infection -Implantable Device -Acute Abdominal Infection -Wound Infection -Meningitis -Blood Stream Catheter Infection -Unknown GI Complaint Exam - Vomiting/Diarrhea Complaint/Exam Episodes of Vomiting over last 24 Hours: 7 Episodes of Diarrhea Over Last 24 Hours: 12 Initial Severity: Moderate Current Severity: Severe Character of Vomiting: Reports: Non-bilious Character of Diarrhea: Reports: Watery Aggravating: Reports: Food, Liquids Alleviating: Reports: None Associated Signs and Symptoms: Reports: Cramping Related History: Reports: Similar episode Recent Positive Test: No Use of Oral Contraceptives: No Use of Depoprovera: No Compliant With Contraceptive Use: No Related Surgical History: Reports: None Abdominal Findings: Present: None [place] Respirations Present: No Differential Diagnoses: Gastritis, Viral Gastroenteritis, Bacterial Gastroenteritis Review of Systems - Review Of Systems Constitutional: Reports: No symptoms Eyes: Reports: No symptoms Ears, Nose, Mouth, Throat: Reports: No symptoms Respiratory: Reports: No symptoms Cardiac: Reports: No symptoms GI: Reports: Diarrhea, Nausea, Vomiting : Reports: No symptoms Musculoskeletal: Reports: No symptoms Skin: Reports: No symptoms Neurological: Reports: No symptoms Endocrine: Reports: No symptoms Hematologic/Lymphatic: Reports: No symptoms All Other Systems: Reviewed and Negative Past Medical History - Past Medical History Previously Healthy: No Endocrine: Reports: DM 2, Dyslipidemia Cardiovascular: Reports: CAD, [place], Hypertension, CHF, A-Fib Respiratory: Reports: COPD, Asthma Hematological: Reports: None Gastrointestinal: Reports: GERD, Diverticulitis, Other Genitourinary: Reports: Kidney stones, Other Neuro/Psych: Reports: Migraine, Seizure, Anxiety, Depression, Bipolar Disorder, Schizophrenia Musculoskeletal: Reports: Arthritis, Back Pain Cancer: Reports: Breast Last Menstrual Period: PT HAS HAD A HYSTERECTOMY Other Pertinent Past Medical History: IBS, PARANOID SCHIZOPHRENIA,ENDOMETRIOSIS - Surgical History General Surgical History: Reports: Hysterectomy, Tubal ligation, Cholecystectomy , Tonsillectomy, Orthopedic, Hernia Repair, Other - Family History Family History: Reports: Unknown - Social History Smoking Status: Current every day smoker, Heavy tobacco smoker Hx Substance Use: No Alcohol Screening: None Physical Exam - Physical Exam Appearance: Ill-appearing Ill-appearing: Mild Pain Distress: None Eyes: HANH, EOMI, Conjunctiva clear ENT: Ears normal, Nose normal, Oropharynx normal Respiratory: Airway patent, Breath sounds clear, Breath sounds equal, Respirations nonlabored Cardiovascular: RRR, Pulses normal, No rub, No murmur GI/: Soft, Nontender Musculoskeletal: Normal strength, ROM intact, No edema, No calf tenderness Skin: Warm, Dry, Normal color Neurological: Sensation intact, Motor intact, Reflexes intact, Cranial nerves intact, Alert, Oriented Psychiatric: Affect appropriate, Mood appropriate Re-Evaluation - Re-Evaluation Time of Re-Evaluation: 00:51 Status: Improved (breathing better ) Critical Care Note - Critical Care Note Total Time (mins): 30 Course - Course Hematology/Chemistry: 05/28/18 23:40 05/28/18 23:40 Orders, Labs, Meds: Lab Review 05/28/18 05/28/18 23:40 23:40 WBC 12.61 H RBC 4.38 Hgb 13.1 Hct 36.6 L MCV 83.6 MCH 29.9 MCHC 35.8 H RDW Coeff of Yanet 13.1 Plt Count 184 Immature Gran % (Auto) 1.0 Neut % (Auto) 74.5 Lymph % (Auto) 16.9 [place] % (Auto) 6.7 Eos % (Auto) 0.6 Baso % (Auto) 0.3 Immature Gran # (Auto) 0.1 Neut # (Auto) 9.4 H Lymph # (Auto) 2.1 [place] # (Auto) 0.8 Eos # (Auto) 0.1 Baso # (Auto) 0.0 Sodium 130.5 L Potassium 4.32 Chloride 96.2 L Carbon Dioxide 30.7 H Anion Gap 7.92 BUN 13.6 Creatinine 0.74 Estimated GFR (MDRD) 82.00 BUN/Creatinine Ratio 18.37 Glucose 325.9 H Calcium 9.15 Total Bilirubin 0.51 AST 23.5 ALT 12.8 Alkaline Phosphatase 164.8 H Total Protein 6.96 Albumin 3.80 Globulin 3.16 Albumin/Globulin Ratio 1.20 Amylase 35.1 Lipase 62.7 Orders Category Date Time Status ED IV/MEDIPORT/POWERPORT .ONCE EMERGENCY 05/28/18 23:34 Active AMYLASE Stat LAB 05/28/18 23:40 Completed CBC W/ AUTO DIFF Stat LAB 05/28/18 23:40 Completed COMPREHENSIVE METABOLIC PANEL Stat LAB 05/28/18 23:40 Completed LIPASE Stat LAB 05/28/18 23:40 Completed 0.9 % Sodium Chloride [Saline Flush] MEDS 05/28/18 23:34 Discontinued 1 syr IVF PRN PRN Diphenoxylate HCl/Atropine [Lomotil] MEDS 05/28/18 23:34 Discontinued 1 tab PO ONCE STA Ringers Lactated Solution [Lactated Ringers] 1,000 ml MEDS 05/28/18 23:33 Discontinued IV BOLUS Medications Discontinued Medications Generic Name Dose Route Start Last Admin Trade Name Freq PRN Reason Stop Dose Admin Diphenoxylate HCl/Atropine 1 tab 05/28/18 23:34 05/28/18 23:39 Lomotil PO 05/28/18 23:35 1 tab ONCE STA Administration Lactated Ringer's 1,000 mls @ 1,000 mls/hr 05/28/18 23:33 05/28/18 23:35 Lactated Ringers IV 05/29/18 00:32 1,000 mls/hr BOLUS STA Administration Sodium Chloride 1 syr 05/28/18 23:34 05/28/18 23:37 Saline Flush IVF 1 syr PRN PRN Administration To flush IV Vital Signs: Temp Pulse Resp BP Pulse Ox 05/29/18 00:36 98.1 F 110 H 20 114/80 95 05/28/18 23:00 97.8 F 103 H 20 117/84 96 Departure - Departure Time of Disposition: 00:51 Disposition: HOME SELF-CARE Discharge Problem: Gastroenteritis and colitis, viral Instructions: Gastroenteritis (ED) Condition: Fair Pt referred to PMD for follow-up: Yes IPMP verified?: No Additional Instructions: Push fluids Follow up with PCP in 3 days Take Lomotil as needed for Diarrhea and zofran as needed for nausea and vomiting. Prescriptions: Diphenoxylate HCl/Atropine [Lomotil 2.5-0.025 mg Tablet] 1 each PO TID PRN #15 tablet PRN Reason: Diarrhea Ondansetron HCl [Zofran Tab] 4 mg PO Q8H PRN #14 tablet PRN Reason: Nausea / Vomiting Allergies/Adverse Reactions: Allergies dexamethasone sod phosphate [From Decadron] Adverse Reaction (Verified 05/28/18 23:19) dextromethorphan HBr [From Vicks Nature Fusion Cough] Adverse Reaction ( Verified 05/28/18 23:) hydromorphone [From Dilaudid] Adverse Reaction (Verified 05/28/18 23:) hydroxyzine pamoate [From Vistaril] Adverse Reaction (Verified 05/28/18 23:) insulin detemir [From Levemir] Adverse Reaction (Verified 05/28/18 23:) insulin glargine,hum.rec.anlog [From Lantus] Adverse Reaction (Verified 23:) Iodinated Contrast- Oral and IV Dye Adverse Reaction (Verified 05/28/18 23:) lorazepam [From Ativan] Adverse Reaction (Verified 05/28/18 23:) meperidine [From Demerol] Adverse Reaction (Verified 05/28/18 23:19) metformin Adverse Reaction (Verified 05/28/18 23:) methylprednisolone [From Medrol] Adverse Reaction (Verified 05/28/18 23:19) nitrofurantoin [From Macrobid] Adverse Reaction (Verified 05/28/18 23:19) nitrofurantoin macrocrystal [From Macrobid] Adverse Reaction (Verified 05/28/18 23:19) Penicillins Adverse Reaction (Verified 05/28/18 23:19) phenytoin sodium [From Dilantin] Adverse Reaction (Verified 05/28/18 23:19) prednisone Adverse Reaction (Verified 05/28/18 23:19) promethazine [From Phenergan] Adverse Reaction (Verified 05/28/18 23:19) Sulfa (Sulfonamide Antibiotics) Adverse Reaction (Verified 05/28/18 23:19) tramadol HCl [From Ultram] Adverse Reaction (Verified 05/28/18 23:19) trimethoprim [From Bactrim] Adverse Reaction (Verified 05/28/18 23:19) paper tape Adverse Reaction (Uncoded 05/28/18 23:19) Home Medications: Ambulatory Orders Insulin Lispro [Humalog] 10 unit SUBCUT QID 07/22/14 Hydrocodone/Acetaminophen [[place] 7.5-325 Tablet] 10 mg PO BEDTIME 12/19/16 Prazosin HCl 2 mg PO BEDTIME 09/19/17 Albuterol Sulfate [Proair Hfa] 2 puff IH BID 10/28/17 Fluticasone Propionate [Flonase] 1 sprays(dnu) MICHELLE BID PRN 10/28/17 Tiotropium [place] [Spiriva] 1 cap IH DAILY 10/28/17 Trazodone HCl 100 mg PO BID 05/05/18 Atorvastatin Calcium 20 mg PO BEDTIME 05/28/18 Budesonide/Formoterol Fumarate [Symbicort 80-4.5 Mcg Inhaler] 2 puff IH BID Doxepin HCl 50 mg PO BEDTIME 05/28/18 Fluoxetine HCl 40 mg PO DAILY 05/28/18 Quetiapine Fumarate 300 mg PO BID 05/28/18 Ranitidine HCl 300 mg PO DAILY 05/28/18 Diphenoxylate HCl/Atropine [Lomotil 2.5-0.025 mg Tablet] 1 each PO TID PRN #15 tablet 05/29/18 Ondansetron HCl [Zofran Tab] 4 mg PO Q8H PRN #14 tablet 05/29/18 Disposition Discussed With: Patient, Family
[2018-05-28] MEDS ORDERED: LOMOTIL PO STA (23:34)
[2018-05-29 00:36] VITALS: BP 114/80; TEMP 98.1
== END 2018-05-29 01:05 | disposition home or self-care (01) ==
LOC: ED 22:55
DX: A08.4 Viral intestinal infection, unspecified (principal); E11.9 Type 2 diabetes mellitus without complications; E78.5 Hyperlipidemia, unspecified; F17.210 Nicotine dependence, cigarettes, uncomplicated; I25.2 Old myocardial infarction; I25.10 Atherosclerotic heart disease of native coronary artery without angina pectoris; I10 Essential (primary) hypertension; Z79.899 Other long term (current) drug therapy; Z87.19 Personal history of other diseases of the digestive system
CPT/HCPCS: 36415; 80053; 82150; 83690; 85025; 96360; 99283

== ENCOUNTER 2018-06-12 18:35 | Outpatient (CLI) ==
[2013-01-24 14:52] VITALS: TEMP 98.1
[2018-06-12 18:57] VITALS: BMI 30.9
== END 2018-06-12 18:40 | disposition short-term general hospital (02) ==
LOC: AMBL 18:35
PROVIDERS: ATTEND Family Medicine
DX: R10.13 Epigastric pain (principal); R07.9 Chest pain, unspecified; R11.0 Nausea; R06.02 Shortness of breath; R42 Dizziness and giddiness; K46.9 Unspecified abdominal hernia without obstruction or gangrene; R00.0 Tachycardia, unspecified

== ENCOUNTER 2018-06-12 18:51 | Emergency (ER) ==
[2018-06-12 18:57] VITALS: BP 105/74; TEMP 98.6; BMI 30.9
--- NOTE | 2018-06-12 19:53 | CT ---
Exam: CT of the abdomen and pelvis without contrast History: Abdominal pain Technique: [address] of the abdomen and pelvis without intravascular contrast FINDINGS: Minor lung base atelectasis. Small pericardial fluid. No significant liver abnormality. T he adrenals, pancreas and spleen are unremarkable. The stomach and hiatus are unremarkable.Prior chol ecystectomy. Kidneys and proximal collecting system are unremarkable. The appendix is not seen. Bowel loops demonstrate normal caliber. No inflamatory change seen in the mesentery or retroperitoneum. At herosclerotic calcification of the aorta without aneurysm. A few sigmoid colonic diverticula. No pelvic fat inflammation. Prior hysterectomy. Normal urinary bladder. No acute findings of the skeleton. Impression: 1. No inflammatory process, bowel or urinary obstruction is seen. 2. Small pericardial fluid stable from 12/30/2017, nonspecific.
--- NOTE | 2018-06-12 20:05 | ED.PDOC ---
General ED Provider: Dr. THERESE REYNOLDS-ER Chief Complaint: Abdominal Pain Stated Complaint: im sick at my stomach Time Seen by Physician: 19:00 Mode of Arrival: Ambulance Information Source: Patient, Family, EMT Exam Limitations: No limitations Nursing and Triage Documentation Reviewed and Agree: Yes Does patient meet sepsis criteria?: No System Inflammatory Response Syndrome: Not Applicable Sepsis Protocol: For patient's 13 years and over: Temp is 96.8 and below OR 101 and greater Pulse >90 BPM Resp >20/minute Acutely Altered Mental Status Are patient's symptoms suggestive of a new infection, such as: -Pneumonia -Skin, Soft Tissue -Endocarditis -UTI -Bone, Joint Infection -Implantable Device -Acute Abdominal Infection -Wound Infection -Meningitis -Blood Stream Catheter Infection -Unknown GI Complaint Exam - Vomiting/Diarrhea Complaint/Exam Onset/Duration: 2 days Symptoms Are: Still present Initial Severity: Mild Current Severity: Mild Character of Vomiting: Reports: Non-bilious Aggravating: Reports: Food Alleviating: Reports: None Associated Signs and Symptoms: Reports: Abdominal pain. Denies: Dizziness, Light-headedness, Melena, Hematemesis, Fever, Cramping Abdominal Findings: Present: None Kussmaul Respirations Present: No Differential Diagnoses: Pancreatitis, UTI Review of Systems - Review Of Systems Constitutional: Reports: No symptoms Eyes: Reports: No symptoms Ears, Nose, Mouth, Throat: Reports: No symptoms Respiratory: Reports: No symptoms Cardiac: Reports: No symptoms GI: Reports: Abdominal pain, Nausea : Reports: No symptoms Musculoskeletal: Reports: No symptoms Skin: Reports: No symptoms Neurological: Reports: No symptoms Endocrine: Reports: No symptoms Hematologic/Lymphatic: Reports: No symptoms All Other Systems: Reviewed and Negative Past Medical History - Past Medical History Previously Healthy: No Endocrine: Reports: DM 2, Dyslipidemia Cardiovascular: Reports: CAD, [place], Hypertension, CHF, A-Fib Respiratory: Reports: COPD, Asthma Hematological: Reports: None Gastrointestinal: Reports: GERD, Diverticulitis, Other Genitourinary: Reports: Kidney stones, Other Neuro/Psych: Reports: Migraine, Seizure, Anxiety, Depression, Bipolar Disorder, Schizophrenia Musculoskeletal: Reports: Arthritis, Back Pain Cancer: Reports: Breast Last Menstrual Period: n/a Other Pertinent Past Medical History: IBS, PARANOID SCHIZOPHRENIA,ENDOMETRIOSIS - Surgical History General Surgical History: Reports: Hysterectomy, Tubal ligation, Cholecystectomy , Tonsillectomy, Orthopedic, Hernia Repair, Other - Family History Family History: Reports: Unknown - Social History Smoking Status: Current every day smoker, Heavy tobacco smoker Hx Substance Use: No Alcohol Screening: None Physical Exam - Physical Exam Appearance: Well-appearing, No pain distress, Well-nourished Eyes: HANH, EOMI, Conjunctiva clear ENT: Ears normal, Nose normal, Oropharynx normal Neck: Supple Respiratory: Airway patent, Breath sounds clear, Breath sounds equal, Respirations nonlabored Cardiovascular: RRR GI/: Soft Musculoskeletal: Normal strength Skin: Warm Neurological: Sensation intact Psychiatric: Affect appropriate, Mood appropriate Interpretation - Radiology Interpretation Radiology Interpretation By: Radiologist Radiology Results: Negative Exam Interpreted: CT Scan - EKG Interpretation Time of EKG #1: 20:05 Rate: Normal Rhythm: Sinus Ectopy: None [place]: NL ST Segment: Normal Critical Care Note - Critical Care Note Total Time (mins): 0 Course - Course Hematology/Chemistry: 06/12/18 19:10 06/12/18 19:10 Orders, Labs, Meds: Lab Review 06/12/18 06/12/18 06/12/18 19:10 19:10 19:10 WBC 10.27 H RBC 4.49 Hgb 13.0 Hct 37.1 MCV 82.6 MCH 29.0 MCHC 35.0 RDW Coeff of Yanet 13.2 Plt Count 182 Immature Gran % (Auto) 1.2 Neut % (Auto) 69.0 Lymph % (Auto) 21.3 [place] % (Auto) 7.2 Eos % (Auto) 0.8 Baso % (Auto) 0.5 Immature Gran # (Auto) 0.1 Neut # (Auto) 7.1 H Lymph # (Auto) 2.2 Gooding # (Auto) 0.7 Eos # (Auto) 0.1 Baso # (Auto) 0.1 ESR 26 H Sodium 130.5 L Potassium 3.72 Chloride 91.5 L Carbon Dioxide 34.1 H Anion Gap 8.62 BUN 11.1 Creatinine 0.65 Estimated GFR (MDRD) 95.00 BUN/Creatinine Ratio 17.07 Glucose 315.5 H Calcium 8.76 Total Bilirubin 0.38 AST 16.7 ALT 12.6 Alkaline Phosphatase 168.4 H Total Creatine Kinase 21.9 L Troponin I < 0.012 Total Protein 7.06 Albumin 3.77 Globulin 3.29 Albumin/Globulin Ratio 1.14 Amylase 37.1 Lipase 57.3 Urine Color Urine Clarity Urine pH Ur Specific [place] Urine Protein Urine Glucose (UA) Urine Ketones Urine Blood Urine Nitrite Urine Bilirubin Urine Urobilinogen Ur Leukocyte Esterase Ur Squamous Epith Cells Urine Bacteria 06/12/18 19:49 WBC RBC Hgb Hct MCV MCH MCHC RDW Coeff of Yanet Plt Count Immature Gran % (Auto) Neut % (Auto) Lymph % (Auto) [place] % (Auto) Eos % (Auto) Baso % (Auto) Immature Gran # (Auto) Neut # (Auto) Lymph # (Auto) [place] # (Auto) Eos # (Auto) Baso # (Auto) ESR Sodium Potassium Chloride Carbon Dioxide Anion Gap BUN Creatinine Estimated GFR (MDRD) BUN/Creatinine Ratio Glucose Calcium Total Bilirubin AST ALT Alkaline Phosphatase Total Creatine Kinase Troponin I Total Protein Albumin Globulin Albumin/Globulin Ratio Amylase Lipase Urine Color Yellow Urine Clarity Slightly Urine pH 5.5 Ur Specific [place] 1.025 Urine Protein Trace Urine Glucose (UA) 1+ Urine Ketones Negative Urine Blood Negative Urine Nitrite Negative Urine Bilirubin 1+ Urine Urobilinogen 1.0 Ur Leukocyte Esterase Negative Ur Squamous Epith Cells 2-5 Urine Bacteria 1+ Orders Category Date Time Status EKG-(ED ONLY) Stat CARDIO 06/12/18 18:54 Completed AMYLASE Stat LAB 06/12/18 19:10 Completed CBC W/ AUTO DIFF Stat LAB 06/12/18 19:10 Completed COMPREHENSIVE METABOLIC PANEL Stat LAB 06/12/18 19:10 Completed CREATINE KINASE Stat LAB 06/12/18 19:10 Completed ESR Stat LAB 06/12/18 19:10 Completed LIPASE Stat LAB 06/12/18 19:10 Completed TROPONIN I Stat LAB 06/12/18 19:10 Completed URINALYSIS C & S IF INDICATED Stat LAB 06/12/18 19:49 Completed URINE CULTURE Stat LAB 06/12/18 20:04 Received Ondansetron HCl/Pf [Zofran 4 mg/2 ml] MEDS 06/12/18 20:07 Stat 4 mg IM ONCE STA CT ABDOMEN/PELVIS WO CONTRAST Stat RADS 06/12/18 18:55 Completed Vital Signs: Temp Pulse Resp BP Pulse Ox 06/12/18 18:54 98.6 F 106 H 16 105/74 98 Departure - Departure Time of Disposition: 20:09 Disposition: HOME SELF-CARE Discharge Problem: Gastroenteritis Instructions: Gastroenteritis (ED) Condition: Good Pt referred to PMD for follow-up: Yes IPMP verified?: No Additional Instructions: zofran 4mg q 4hrs prn #6--f/u with pcp Allergies/Adverse Reactions: Allergies dexamethasone sod phosphate [From Decadron] Adverse Reaction (Verified 06/12/18 18:58) dextromethorphan HBr [From Vicks Nature Fusion Cough] Adverse Reaction ( Verified 06/12/18 18:58) hydromorphone [From Dilaudid] Adverse Reaction (Verified 06/12/18 18:58) hydroxyzine pamoate [From Vistaril] Adverse Reaction (Verified 06/12/18 18:58) insulin detemir [From Levemir] Adverse Reaction (Verified 06/12/18 18:58) insulin glargine,hum.rec.anlog [From Lantus] Adverse Reaction (Verified 18:58) Iodinated Contrast- Oral and IV Dye Adverse Reaction (Verified 06/12/18 18:58) lorazepam [From Ativan] Adverse Reaction (Verified 06/12/18 18:58) meperidine [From Demerol] Adverse Reaction (Verified 06/12/18 18:58) metformin Adverse Reaction (Verified 06/12/18 18:58) methylprednisolone [From Medrol] Adverse Reaction (Verified 06/12/18 18:58) nitrofurantoin [From Macrobid] Adverse Reaction (Verified 06/12/18 18:58) nitrofurantoin macrocrystal [From Macrobid] Adverse Reaction (Verified 06/12/18 18:58) Penicillins Adverse Reaction (Verified 06/12/18 18:58) phenytoin sodium [From Dilantin] Adverse Reaction (Verified 06/12/18 18:58) prednisone Adverse Reaction (Verified 06/12/18 18:58) promethazine [From Phenergan] Adverse Reaction (Verified 06/12/18 18:58) Sulfa (Sulfonamide Antibiotics) Adverse Reaction (Verified 06/12/18 18:58) tramadol HCl [From Ultram] Adverse Reaction (Verified 06/12/18 18:58) trimethoprim [From Bactrim] Adverse Reaction (Verified 06/12/18 18:58) paper tape Adverse Reaction (Uncoded 05/28/18 23:19) Home Medications: Ambulatory Orders Insulin Lispro [Humalog] 10 unit SUBCUT QID 07/22/14 Albuterol Sulfate [Proair Hfa] 2 puff IH BID 10/28/17 Fluticasone Propionate [Flonase] 1 sprays(dnu) MICHELLE DAILY 10/28/17 Tiotropium Hana [Spiriva] 1 cap IH DAILY 10/28/17 Trazodone HCl 100 mg PO DAILY 05/05/18 Atorvastatin Calcium 20 mg PO BEDTIME 05/28/18 Budesonide/Formoterol Fumarate [Symbicort 80-4.5 Mcg Inhaler] 2 puff IH BID Quetiapine Fumarate 300 mg PO DAILY 05/28/18 Ondansetron HCl [Zofran Tab] 4 mg PO Q8H PRN #14 tablet 05/29/18 Albuterol Sulfate 0.083% Neb [Albuterol 0.083% Neb] 1 vial NEB RTQ6H PRN Aspirin [Aspirin EC] 81 mg PO DAILY 06/12/18 Furosemide 80 mg PO DIRECTED 06/12/18 Hydrocodone Bit/Acetaminophen [[place] 7.5-325] 1 tab PO DIRECTED PRN 06/12/18 Insulin Glargine,Hum.rec.anlog [Lantus] 20 unit SUBCUT BEDTIME 06/12/18 Montelukast Sodium 10 mg PO DAILY 06/12/18 Nitroglycerin [Nitrostat] 0.4 mg SL Q5MIN X 3 DOSES PRN 06/12/18 Pantoprazole Sodium [Protonix] 40 mg PO DAILY 06/12/18 Topiramate [Topamax] 50 mg PO Q12H 06/12/18 Disposition Discussed With: Patient, Family
[2018-06-12] MEDS ORDERED: ZOFRAN 4 MG/2 ML IM STA (20:07)
== END 2018-06-12 21:32 | disposition home or self-care (01) ==
LOC: ED 18:51
DX: K52.9 Noninfective gastroenteritis and colitis, unspecified (principal); R11.0 Nausea; E11.9 Type 2 diabetes mellitus without complications; E78.5 Hyperlipidemia, unspecified; I25.10 Atherosclerotic heart disease of native coronary artery without angina pectoris; I25.2 Old myocardial infarction; I10 Essential (primary) hypertension; Z87.19 Personal history of other diseases of the digestive system; F17.210 Nicotine dependence, cigarettes, uncomplicated; Z79.899 Other long term (current) drug therapy
CPT/HCPCS: 36415; 80053; 81001; 82150; 82550; 83690; 84484; 85025; 85651; 87086; 93005; 93010; 96372; 99283

== ENCOUNTER 2018-10-25 12:07 | Outpatient (CLI) ==
[2013-01-24 14:52] VITALS: TEMP 98.1
[2018-07-10 22:33] VITALS: BMI 30.9
--- NOTE | 2018-10-30 10:58 | ECHOCOLOR ---
Date of Exam: 10/25/18 Ordering Physician: FLAKITA MCALLISTER M.D. Reason for Echo: PERICARDIAL EFFUSION M-Mode Normal Adult Results LV Dimensions Normal Adult Results AoV Opening excursions >1.6 >1.6 LVEDD-base- 3.5-5.8 4.8 Ao root dimensions 2.0-3.7 3.2 LVESD-base- 3.1-4.6 L. Atrium dimensions 1.9-3.8 3.8 Post. Wall thickness 0.8-1.1 1.2 IV septum (thickness) 0.7-1.2 1.2 Post. Wall excursion 0.72-1.3 NORMAL Septal motion 0.2 Systolic motion R. Ventricular cavity 1.5-2.0 NORMAL LVEF 60% 35% Paradoxical septal wall motion NORMAL 2-D: HYPOKINETIC TO AKINETIC SEPTUM--VALVES NORMAL-NORMAL LEFT VENTRICLE AND LEFT ATRIAL SIZE--NO THROMBUS--SMALL PERICARDIAL EFFUSION DOPPLER WITH COLOR FLOW: NORMAL VALVULAR FLOW INDICES--IVC COLLAPSES WELL-- TRIVIAL TRICUSPID REGURGITATION AND MITRAL REGURGITATION M-MODE: MV: NORMAL AV: NORMAL TV: NORMAL PV: CHAMBER SIZE: NORMAL WALL MOTION: HYPOKINETIC TO AKINETIC SEPTUM PERICARDIUM: SMALL PERICARDIAL EFFUSION INTERPRETATION: 1. LEFT VENTRICULAR HYPERTROPHY --BORDERLINE 2. MILD PERICARDIAL EFFUSION 3. HYPOKINETIC TO AKINETIC SEPTUM --EJECTION FRACTION 35% 4. NORMAL VALVULAR FLOW INDICES 5. TRIVIAL TRICUSPID REGURGITATION AND MITRAL REGURGITATION RECOMMEND: REPEAT FULL ECHO IN 6 MONTHS MTDD
== END 2018-10-25 12:08 | disposition home or self-care (01) ==
LOC: CAR 12:07
PROVIDERS: ATTEND Family Medicine
DX: I31.3 Pericardial effusion (noninflammatory) (principal)

== ENCOUNTER 2019-03-13 | Emergency (ER) | END 2019-03-13 21:38 | disposition home or self-care (01) | CPT/HCPCS: 36415; 80053; 81001; 82150; 83690; 85025; 96361; 96374; 96375; 99283 ==

== ENCOUNTER 2019-04-05 14:10 | Outpatient (RCR) ==
[2013-01-24 14:52] VITALS: TEMP 98.1
[2019-03-13 18:32] VITALS: BMI 28.0
--- NOTE | 2019-04-06 10:20 | RS.CSNOTE ---
PT Case Note Date of Note: 04/06/19 Title of document: Call returned from Dr. Alanis's office. Note: Jayro, from Dr. Alanis's office, left a Voicmail that Tess should still be wearing her thumb spica splint. Stated she did not have it on when they saw her last, but they did tell her that she needs to wear it. She is to wear it until they see her mid April for her next follow up appointment. I called Tess at 10:15 this morning to relay the message that she is to continue wearing the splint until she goes back to the doctor in April.
--- NOTE | 2019-04-06 14:17 | RS.OPPTEV2 ---
Date of Note: 04/05/19 Visit #: 1 Number of visits approved by Insurance: pending Date of Evaluation: 04/05/19 Payer Source: Medicaid Surgery Performed?: Yes (Left Ligament Reconstruction Tendon Interposition) Date of Procedure: 02/19/19 Treatment Diagnosis: Left hand/wrist pain, left hand/wrist stiffness, weakness left hand/wrist History of Condition/Mechanism of Injury:: Patient reports a history of progressive left hand symptoms pain and tingling. She had Carpal Tunnel Surgery in December of this year on this hand. Prior Level of Function.....Patient was independent with: ADL's, Self Care, Work /Vocation, Caregiving, Ambulation/Mobility, Community Integration/Access Functional Limitations: Sleep, Self Care, ADL's, Reaching, Pushing, Pulling, Lifting, Carrying, Community Access/Integration (opening doors) Current Subjective/complaints:: Tess states she has been moving her fingers. States she has not been icing the hand/wrist lately. She did right after surgery. She was in a splint, but her states that a nurse at Dr. Alanis's office told them that she did not need it anymore. Wires were removed last . They were told that she has a piece of metal that will stay. Reports a nagging discomfort over the base of the thumb and at the wrist. Treatment Side (optional): Left *Precautions: Seizures, Heart problems Medical History Medical History: Hypertension, Diabetes, Arthritis, Cancer Medical History Comments:: Rheumatiod arthritis, colon cancer, L TKA, Right knee surgery, tonsilectomy, Appendix, Gall bladder, tubal ligation, hysterectomy , sinus surgery, RUE CTR. seizures Surgical History Comments:: tonsillectomy, L TKA, Appendectomy, R CTS, colon surgery, sinus surgery, hysterectomy, gall bladder removed. Smoking Status: Current every day smoker Hx Home Medications: States she has Hydrocodone at home, but only took one pill after surgery. She did not bring medication list. Patient's Goals: Her goal is to be able to use the left hand again without pain. Pain Assessment - Pain Description Pain Location: left wrist and base of the thumb Pain Description: nagging discomfort Current Pain Intensity: not quantified Worst Pain Intensity: not quantified Functional Outcome Measure UE Functional Index: 36 (36/80=55% impairment) - G Codes & Severity Modifier G Codes & Modifier: nA Source of G Code score: Na Observation - Observation Inspection: Left wrist and thumb present with swelling. Exhbits clean, well healing incisions. She has 3 incisions ~ 1.5 cm in length along the radial aspect of the forearm, another small incision over the CMC area, and a 2 inch incision over the lateral/doral aspect of the 1st metacarpal bone. Demonstrates no signs of infection. Handedness: Right Girth Measurement Upper: Left hand measurements: Styloid process of radius 19 cm , Metheads 19.5 cm Wrist ROM: Right WFL's Wrist Muscle Strength: Right WFL's - Left Wrist/Hand ROM Left Wrist Extension: 45 degrees AROM Left Wrist Flexion: 30 (degrees AROM) Comments: Allows less wrist PROM than she moves actively. Reports pain with PROM. Left elbow flexion and extension is WFL's. - Left Wrist Strength Comments: Left elbow strength 4+/5. Palpation Comments:: Patient reports hypersensitivity along the dorsal and radial aspect of the wrist and thumb. Reports hypersensitivity along the palmar aspect of the forearm. States "it tickles" with very light touch. Sensation - Sensation Comments: States "it feels different" when assessing sensation of the left forearm, wrist , and thumb. States she has tingling in the palmar aspect of the hand along the thenar eminence. Additional Comments: Additional Comments: Able to perform left thumb opposition to the 4th digit. Interventions - Exercise/Activities/Manual Therapy Exercises/Activities: Attempted left wrist PROM with patient. She was anxious and told me to stop after 4-5 reps into flex/extension, due to reports of pain. Patient instructed in active finger flexion, active wrist flexion/extension, and active elbow flexion/extension. Advised Tess that I would call the doctor's office regarding if she is to be wearing the splint. I did advise her for now to definitely wear the splint at night. Advised her (with her present) to not do any gripping or lifting with the left hand. Also advised her to not push herself up from a chair, bed, toilet, or tub with the left hand. Encouraged her to elevate and ice the left hand/wrist often to help manage her swelling. Manual Therapy: NA - Charges Timed Code Treatment Minutes: 12 mins Total Treatment Time: 48 mins Procedures billed for this date of service:: EVAL LOW EVALUATION COMPLEXITY LEVEL EVALUATION COMPLEXITY LEVEL: HISTORY: Medium (Carpal Tunnel surgery December 2018, Diabetes, HTN), EXAM OF BODY SYSTEMS: Low (Left hand, wrist, forearm), CLINICAL PRESENTATION: Medium (evolving ), CLINICAL DECISION MAKING: Low Assessment Assessment: Patient presents 6 1/2 weeks s/p left LRTI. She exhibits limited use of the left hand at this time due to surgical precautions/therapy protocol. She demonstrates swelling of the left thumb/wrist, limited ROM, and weakness. She has stopped wearing the spica splint, but most likely should be. I will call to verify whether she is to continue wearing the splint. She demonstrates good potential to regain functional AROM and strength of the left hand with appropriately progressed exercises/activities per protocol. Patient Education: Education of diagnosis, Body/Joint mechanics, Home Exercise Program, Home Safety, Activity Modification, Education of Plan of Care Rehab Potential: Good Short Term Goals Goal #1: Pt independent in HEP and compliant with surgical precautions. Goal to be met by: 04/13/19 Goal #2: Left wrist AROM flexion and extension to 60 degrees. Goal to be met by: 04/20/19 Goal #3: Patient able to perform full thumb opposition to the 5th digit. Goal to be met by: 04/20/19 [facility] Goals Goal #1: Pt knows HEP and to continue ex's to maintain functional level at D/C. Goal to be met by: 05/21/19 Goal #2: Score on UE functional scale improved to 56/80. Goal to be met by: 05/21/19 Goal #3: Pt able to use left hand for light selfcare and ADL's without pain. Goal to be met by: 05/21/19 Goal #4: Left hand AROM WFL's with pain < 3/10 Goal to be met by: 05/21/19 Plan - Treatment to be Provided Procedures: Therapeutic Exercises, Therapeutic Activity, Manual Therapy, Patient Education Modalities: Cryotherapy - Treatment Plan Frequency: 2-3 X week Duration: 6 weeks Dates of [facility] Goals: 05/21/19 Expiration date of current Insurance Approval:: pending - Treatment Code (1) Wrist stiffness Code(s): M25.639 - STIFFNESS OF UNSPECIFIED WRIST, NOT ELSEWHERE CLASSIFIED Qualifiers: Laterality: left Qualified Code(s): M25.632 - Stiffness of left wrist, not elsewhere classified (2) Thumb joint stiffness Code(s): M25.649 - STIFFNESS OF UNSPECIFIED HAND, NOT ELSEWHERE CLASSIFIED Comments: M25.642 (3) Thumb pain Code(s): M79.646 - PAIN IN UNSPECIFIED FINGER(S) Qualifiers: Laterality: left Qualified Code(s): M79.645 - Pain in left finger(s) (4) H/O hand surgery Code(s): Z98.890 - OTHER SPECIFIED POSTPROCEDURAL STATES Comments: Z98.890
== END 2019-04-07 23:59 ==
PROVIDERS: ATTEND Orthopaedic Surgery
DX: M18.12 Unilateral primary osteoarthritis of first carpometacarpal joint, left hand (principal); M25.632 Stiffness of left wrist, not elsewhere classified; M25.642 Stiffness of left hand, not elsewhere classified; M79.645 Pain in left finger(s); Z98.890 Other specified postprocedural states